=== PATIENT | female | born 1985 | race Caucasian/White ===

== ENCOUNTER 2017-12-02 20:25 | Emergency (ER) | payer OTHER ==
[2017-12-02] MEDS ORDERED: NA CHLORIDE 0.9% 1,000 ML ONE (20:59)
[2017-12-02 21:10] LABS: Absolute Lymphocytes (CBC) 2.4 K/uL (0.7-4.9); Absolute Monocytes 0.5 K/uL (0.1-1.3); Absolute Neutrophil 5.6 K/uL (1.8-8.0); Basophils % 0.5 % (0-1.3); Eosinophils % 1.7 % (0-4.4); Lymphocytes % 27.7 % (15.3-44.8); MCH 30.4 pg (27.0-35.0); MCV 87.7 fL (80-100); MPV 8.2 fL (7.6-11.3)
--- NOTE | 2017-12-02 21:29 | RAD REPORT ---
EXAM DESCRIPTION: RAD - Chest Single View - 12/02/2017 9:21 pm CLINICAL HISTORY: SOB Chest pain. COMPARISON: Chest Single View dated 03/02/2017; CHEST SINGLE VIEW dated 12/26/2014; Chest For Pe Angio dated 03/03/2017 FINDINGS: Portable technique limits examination quality. The lungs are grossly clear. The heart is normal in size. No displaced fractures. IMPRESSION: No acute intrathoracic process suspected.
[2017-12-02 21:34] LABS: Potassium 3.1 mmol/L (3.5-5.1); Thyroid Stimulating Hormone 2.13 uIU/mL (0.36-3.74)
[2017-12-02 23:16] LABS: Urine Blood TRACE (NEG); Urine Glucose NEGATIVE (NEG); Urine Protein TRACE (NEG); Urine pH 5.5 (5.0-7.0)
[2017-12-02 23:24] LABS: Barbiturates NEGATIVE (NEGATIVE); Benzodiazepines NEGATIVE (NEGATIVE); Cocaine NEGATIVE (NEGATIVE); METHAMPHETAM NEGATIVE (NEGATIVE); Methadone NEGATIVE (NEGATIVE); Opiates NEGATIVE (NEGATIVE); Phencyclidine NEGATIVE (NEGATIVE); THC Cannibis NEGATIVE (NEGATIVE)
--- NOTE | 2017-12-03 00:44 | ER ---
Nurse's Notes [facility] Name: Ivet Valles Age: 32 yrs Sex: Female : 1985 Arrival Date: 12/02/2017 Time: 20:26 Bed 8 Private MD: Ab Dumas Diagnosis: Tachycardia, unspecified;Dyspnea Presentation: 12/02 20:45 Presenting complaint: Patient states: SOB and rapid HR that started suddenly after aj eating dinner tonight. Patient also reports nausea. Transition of care: patient was not received from another setting of care. Onset of symptoms was December 02, 2017. Risk Assessment: Do you want to hurt yourself or someone else? Patient reports no desire to harm self or others. Initial Sepsis Screen: Does the patient meet any 2 criteria? HR > 90 bpm. Does the patient have a suspected source of infection? No. Patient's initial sepsis screen is negative. Care prior to arrival: None. 20:45 Method Of Arrival: Ambulatory aj 20:45 Acuity: REJI 2 aj Triage Assessment: 20:48 General: Appears in no apparent distress. uncomfortable, obese, Behavior is calm, aj cooperative, appropriate for age. Pain: Denies pain. Neuro: Level of Consciousness is awake, alert, obeys commands, Oriented to person, place, time, situation, Appropriate for age. Cardiovascular: Reports shortness of breath, Capillary refill < 3 seconds in bilateral fingers Patient's skin is warm and dry. Rhythm is sinus tachycardia. Respiratory: Reports shortness of breath at rest Onset: The symptoms/episode began/occurred just prior to arrival, the patient has mild shortness of breath. Derm: Skin is intact, is healthy with good turgor, Skin is pink, warm \T\ dry. normal. BALLISTICIAN: 20:48 LMP 11/29/2017 aj Historical: - Allergies: 20:48 Clindamycin; aj 20:48 Latex, Natural Rubber; aj - Home Meds: 20:48 Lexapro 20 mg Oral tab 1 tab once daily [Active]; metformin 1,000 mg oral tab 1 tab aj [Active]; lisinopril-hydrochlorothiazide 20-12.5 mg oral tab 1 tab once daily [Active]; - PMHx: 20:48 PCOS; Hypertension; aj - PSHx: 20:48 D \T\ C; aj - Immunization history:: Adult Immunizations up to date. - Social history:: Smoking status: Patient uses tobacco products, smokes one-half pack cigarettes per day. - Ebola Screening: : Patient negative for fever greater than or equal to 101.5 degrees Fahrenheit, and additional compatible Ebola Virus Disease symptoms Patient denies exposure to infectious person Patient denies travel to an Ebola-affected area in the 21 days before illness onset No symptoms or risks identified at this time. Screenin:05 Abuse screen: Denies threats or abuse. Denies injuries from another. Nutritional rv screening: No deficits noted. Tuberculosis screening: No symptoms or risk factors identified. Fall Risk None identified. Assessment: 21:04 Reassessment: Patient appears in no apparent distress at this time. General: Appears rv uncomfortable, Behavior is calm, cooperative. Pain: Denies pain. Neuro: Cardiovascular: Heart tones S1 S2 present. Respiratory: Airway is patent Respiratory effort is even, Breath sounds are clear bilaterally. 22:00 Reassessment: Patient appears in no apparent distress at this time. Patient and/or aa1 family updated on plan of care and expected duration. Pain level reassessed. Patient is alert, oriented x 3, equal unlabored respirations, skin warm/dry/pink. Awaiting urine sample. 23:00 Reassessment: Patient appears in no apparent distress at this time. Patient and/or aa1 family updated on plan of care and expected duration. Pain level reassessed. Patient is alert, oriented x 3, equal unlabored respirations, skin warm/dry/pink. Awaiting provider reassessment. 23:30 Reassessment: Patient appears in no apparent distress at this time. Pt taken to CT. aa1 12/03 00:10 Reassessment: Patient appears in no apparent distress at this time. Patient and/or rv family updated on plan of care and expected duration. Pain level reassessed. Patient is alert, oriented x 3, equal unlabored respirations, skin warm/dry/pink. patient came back from CT scan. awaiting result. vital signs are stable. Vital Signs: 12/02 20:48 BP 148 / 105; Pulse 133; Resp 20; Temp 97.9; Pulse Ox 95% on R/A; Weight 127.01 kg; aj Height 5 ft. 5 in. (165.10 cm); 21:45 BP 131 / 86; Pulse 110; Resp 18; Pulse Ox 96% on R/A; aa1 22:50 BP 124 / 80; Pulse 90; Resp 18; Pulse Ox 96% on R/A; aa1 12/03 00:11 BP 112 / 77; Pulse 91; Resp 16; Pulse Ox 97% on R/A; rv 00:52 BP 118 / 79; Pulse 85; Resp 16; Pulse Ox 97% on R/A; rv 12/02 20:48 Body Mass Index 46.59 (127.01 kg, 165.10 cm) ED Course: 12/02 20:26 Patient arrived in ED. am2 20:26 Ab Dumas MD is Private Physician. am2 20:41 Ender Jones MD is Attending Physician. gs 20:46 Triage completed. aj 20:48 Arm band placed on right wrist. Patient placed in an exam room, on a stretcher, on aj patient monitor, on pulse oximetry. EKG completed in triage. Results shown to MD. 20:58 Inserted saline lock: 20 gauge in right forearm, using aseptic technique. rv 21:06 Patient has correct armband on for positive identification. Placed in gown. Bed in low rv position. Call light in reach. Side rails up X 1. Adult w/ patient. pvc monitor on. Pulse ox on. NIBP on. 21:20 X-ray completed. Portable x-ray completed in exam room. Patient tolerated procedure kc2 well. 21:21 XRAY Chest (1 view) In Process Unspecified. EDMS 22:30 Urine collected: clean catch specimen. aa1 23:[address] via wheelchair. vr 23:45 CT completed. Patient tolerated procedure well. Patient moved back from CT. kw1 23:49 CT Chest For PE Angio In Process Unspecified. EDMS 12/03 00:54 No provider procedures requiring assistance completed. IV discontinued, bleeding rv controlled, No redness/swelling at site. Pressure dressing applied. Administered Medications: 12/02 20:57 Drug: NS 0.9% 1000 ml Route: IV; Rate: 1 bolus; Site: right forearm; rv 12/03 00:53 Follow up: IV Status: Completed infusion rv Outcome: 00:44 Discharge ordered by MD. gs 00:54 Discharged to home ambulatory. rv 00:54 Condition: improved 00:54 Discharge instructions given to patient, Instructed on discharge instructions. 00:54 Patient left the ED. rv Signatures: Dispatcher [employer] EDMS Coty Ventura RN RN aa1 Myers, Amanda, RN RN aj Davis, Victoria vr Carr, Kelsie kc2 Rebecca Garcia Gregory, MD MD Delmy Marie kw1 Arnold Chisholm RN RN rv Corrections: (The following items were deleted from the chart) 12/02 20:47 20:45 Initial Sepsis Screen: Does the patient meet any 2 criteria? HR > 90 bpm. Does aj the patient have a suspected source of infection? No. Patient's initial sepsis screen is negative. aj
--- NOTE | 2017-12-03 00:44 | EDPHYS ---
Physician Documentation [facility] Name: Ivet Valles Age: 32 yrs Sex: Female : 1985 Arrival Date: 12/02/2017 Time: 20:26 Bed 8 Private MD: Ab Dumas ED Physician Ender Jones HPI: 12/03 00:38 This 32 yrs old Female presents to ER via Ambulatory with complaints of gs Shortness Of Breath, Heart racing. 00:38 The patient has shortness of breath at rest. Onset: The symptoms/episode began/occurred gs yesterday. Duration: The symptoms are continuous. The patient's shortness of breath is aggravated by nothing, is alleviated by nothing. Associated signs and symptoms: Pertinent positives: palpitations, Pertinent negatives: chest pain. Severity of symptoms: At their worst the symptoms were severe in the emergency department the symptoms are unchanged. The patient has experienced similar episodes in the past, a few times. PICCOLOIST: 12/02 20:48 LMP 11/29/2017 aj Historical: - Allergies: 20:48 Clindamycin; aj 20:48 Latex, Natural Rubber; aj - Home Meds: 20:48 Lexapro 20 mg Oral tab 1 tab once daily [Active]; metformin 1,000 mg oral tab 1 tab aj [Active]; lisinopril-hydrochlorothiazide 20-12.5 mg oral tab 1 tab once daily [Active]; - PMHx: 20:48 PCOS; Hypertension; aj - PSHx: 20:48 D \T\ C; aj - Immunization history:: Adult Immunizations up to date. - Social history:: Smoking status: Patient uses tobacco products, smokes one-half pack cigarettes per day. - Ebola Screening: : Patient negative for fever greater than or equal to 101.5 degrees Fahrenheit, and additional compatible Ebola Virus Disease symptoms Patient denies exposure to infectious person Patient denies travel to an Ebola-affected area in the 21 days before illness onset No symptoms or risks identified at this time. ROS: 12/03 00:38 All other systems are negative. gs Exam: 00:38 Head/Face: Normocephalic, atraumatic. Eyes: Pupils equal round and reactive to light, gs extra-ocular motions intact. Lids and lashes normal. Conjunctiva and sclera are non-icteric and not injected. Cornea within normal limits. Periorbital areas with no swelling, redness, or edema. ENT: Nares patent. No nasal discharge, no septal abnormalities noted. Tympanic membranes are normal and external auditory canals are clear. Oropharynx with no redness, swelling, or masses, exudates, or evidence of obstruction, uvula midline. Mucous membranes moist. Neck: Trachea midline, no thyromegaly or masses palpated, and no cervical lymphadenopathy. Supple, full range of motion without nuchal rigidity, or vertebral point tenderness. No Meningismus. Chest/axilla: Normal chest wall appearance and motion. Nontender with no deformity. No lesions are appreciated. 00:38 Abdomen/GI: Soft, non-tender, with normal bowel sounds. No distension or tympany. No guarding or rebound. No evidence of tenderness throughout. Back: No spinal tenderness. No costovertebral tenderness. Full range of motion. Skin: Warm, dry with normal turgor. Normal color with no rashes, no lesions, and no evidence of cellulitis. MS/ Extremity: Pulses equal, no cyanosis. Neurovascular intact. Full, normal range of motion. Neuro: Awake and alert, GCS 15, oriented to person, place, time, and situation. Cranial nerves II-XII grossly intact. Motor strength 5/5 in all extremities. Sensory grossly intact. Cerebellar exam normal. Normal gait. 00:38 Constitutional: The patient appears alert, awake. 00:38 Cardiovascular: Rate: tachycardic, Rhythm: regular, Pulses: no pulse deficits are appreciated. 00:38 ECG was reviewed by the Attending Physician. 00:38 Respiratory: the patient does not display signs of respiratory distress, Respirations: normal, Breath sounds: are clear throughout, no bronchial sounds, no wheezing. Vital Signs: 12/02 20:48 BP 148 / 105; Pulse 133; Resp 20; Temp 97.9; Pulse Ox 95% on R/A; Weight 127.01 kg; aj Height 5 ft. 5 in. (165.10 cm); 21:45 BP 131 / 86; Pulse 110; Resp 18; Pulse Ox 96% on R/A; aa1 22:50 BP 124 / 80; Pulse 90; Resp 18; Pulse Ox 96% on R/A; aa1 12/03 00:11 BP 112 / 77; Pulse 91; Resp 16; Pulse Ox 97% on R/A; rv 00:52 BP 118 / 79; Pulse 85; Resp 16; Pulse Ox 97% on R/A; rv 12/02 20:48 Body Mass Index 46.59 (127.01 kg, 165.10 cm) aj MDM: 12/02 20:49 Patient medically screened. 12/03 00:38 Differential diagnosis: Anxiety Reaction pulmonary edema, Pulmonary Embolism gs arrthymia,thyroid abl. Data reviewed: vital signs, nurses notes. Medication response: labetalol reduced the patient's elevated blood pressure to within acceptable limits. 12/02 20:51 Order name: Basic Metabolic Panel 12/02 20:51 Order name: CBC with Diff 12/02 20:51 Order name: Magnesium 12/02 20:51 Order name: Troponin (emerg Dept Use Only) 12/02 20:51 Order name: D-Dimer; Complete Time: 21:38 12/02 20:51 Order name: TSH 12/02 20:51 Order name: Urine Drug Screen; Complete Time: 00:45 12/02 20:51 Order name: Basic Metabolic Panel; Complete Time: 21:38 EDPR 12/02 20:51 Order name: CBC with Automated Diff; Complete Time: 21:38 EDPR 12/02 20:51 Order name: Magnesium; Complete Time: 21:38 EDPR 12/02 20:51 Order name: Troponin (Emerg Dept Use Only); Complete Time: 21:38 EDPR 12/02 20:51 Order name: Thyroid Stimulating Hormone; Complete Time: 21:38 EDPR 12/02 23:08 Order name: Urine Dipstick--Ancillary (enter results); Complete Time: 00:45 [facility] 12/02 23:08 Order name: Urine --Ancillary (enter results); Complete Time: 00:45 [facility] 12/02 20:51 Order name: XRAY Chest (1 view); Complete Time: 21:38 12/02 20:51 Order name: EKG; Complete Time: 20:52 12/02 20:51 Order name: Cardiac monitoring; Complete Time: 20:57 12/02 20:51 Order name: EKG - Nurse/Tech; Complete Time: 20:57 12/02 20:51 Order name: IV Saline Lock; Complete Time: 20:58 12/02 20:51 Order name: Labs collected and sent; Complete Time: 20:58 12/02 20:51 Order name: O2 Per Protocol; Complete Time: 20:58 12/02 20:51 Order name: O2 Sat Monitoring; Complete Time: 20:58 12/02 20:51 Order name: Urine Dipstick-Ancillary (obtain specimen); Complete Time: 23:10 12/02 20:51 Order name: Urine Test (obtain specimen); Complete Time: 23:38 12/02 23:16 Order name: CT Chest For PE Angio EC:38 Rate is 106 beats/min. Rhythm is regular. [place] interval is normal. QRS interval is gs normal. T waves are Normal. No ST changes noted. Clinical impression: Abnormal EKG without significant change. Interpreted by me. Administered Medications: 12/02 20:57 Drug: NS 0.9% 1000 ml Route: IV; Rate: 1 bolus; Site: right forearm; rv 12/03 00:53 Follow up: IV Status: Completed infusion rv Disposition: 12/03/17 00:44 Discharged to Home. Impression: Tachycardia, unspecified, Dyspnea. - Condition is Stable. - Discharge Instructions: Palpitations, Shortness of Breath, [id number]. - Medication Reconciliation Form, Thank You Letter, Antibiotic Education, Prescription Opioid Use form. - Follow up: Private Physician; When: 2 - 3 days; Reason: Re-evaluation by your physician. Signatures: Dispatcher [employer] Rebecca Blanc RN RN aj Starr, Gregory, MD MD Arnold Chisholm RN RN rv Corrections: (The following items were deleted from the chart) 00:54 00:44 12/03/2017 00:44 Discharged to Home. Impression: Tachycardia, unspecified; rv Dyspnea. Condition is Stable. Forms are Medication Reconciliation Form, Thank You Letter, Antibiotic Education, Prescription Opioid Use. Follow up: Private Physician; When: 2 - 3 days; Reason: Re-evaluation by your physician.
--- NOTE | 2017-12-03 13:12 | RAD REPORT ---
EXAM DESCRIPTION: CT - Chest For Pe Angio - 12/03/2017 7:23 am CLINICAL HISTORY: Chest pain. SOB COMPARISON: Chest For Pe Angio dated 03/03/2017; CTANGIO CHEST FOR PE dated 12/26/2014 TECHNIQUE: CT angiogram of the pulmonary arteries was performed with MIP. All CT scans are performed using dose optimization technique as appropriate and may include automated exposure control or mA/KV adjustment according to patient size. FINDINGS: No evidence of pulmonary thromboembolism. No acute aortic finding demonstrated. The lungs are clear. No significant pericardial or pleural fluid. No concerning bony finding. IMPRESSION: No evidence of pulmonary thromboembolism. No acute lung findings.
--- NOTE | 2017-12-05 07:00 | EKG ---
Test Date: 2017-12-02 Test Time: 20:47:47 [place]: MEASUREMENT RESULTS: Intervals: Rate: 106 ND: 148 QRSD: 78 QT: 326 QTc: 433 Hodges: P: 38 ND: 148 QRS: 22 T: 24 INTERPRETIVE STATEMENTS: Sinus tachycardia Abnormal ECG Compared to ECG 12/25/2014 21:55:32 Sinus rhythm no longer present Electronically Signed On 12-05-17 07:00:18 CDT by Cyrus Corrigan
== END 2017-12-03 00:54 | disposition home or self-care (01) ==
LOC: ER 20:25
DX: R00.2 Palpitations (principal); I10 Essential (primary) hypertension; F17.210 Nicotine dependence, cigarettes, uncomplicated; Z88.3 Allergy status to other anti-infective agents; Z91.040 Latex allergy status; Z91.048 Other nonmedicinal substance allergy status
CPT/HCPCS: 36415; 71045; 71275; 80048; 80307; 81003; 81025; 83735; 84443; 84484; 85025; 85379; 93005; 96360; 96361; 99285; J7030; Q9967

== ENCOUNTER 2020-01-08 18:52 | Emergency (ER) | payer OTHER ==
--- OUTSIDE RECORDS SUMMARY | 2020-01-08 18:53 | XMS REPORT | Summary of Care ---
:1985 Author Organization [facility] Address [address] [place] [id number] Care Team Providers Name Role Phone Avelino Red Primary Care Provider Reason for Visit Reason Comments Refill Request Encounter Details Date Type Department Care Team Description 01/06/2020 Refill [facility] Peterson jimenez, MD Juan A Refill Request - [address] [place] [address] [place] [address] [phone] Allergies Active Allergy Reactions Severity Noted Date Comments Clindamycin Unknown - See comments 01/06/2016 Erythromycin Unknown - See comments 01/06/2016 Latex Rash 01/06/2016 documented as of this encounter (statuses as of 01/07/2020) Medications Medication Sig Dispensed Refills Start Date End Date Status aspirin (ASPIRIN Take 81 mg by 0 Active LOW DOSE) 81 mg EC mouth daily. tablet lisinopril-hydrochl Take 1 tablet 0 Active orothiazide 20-12.5 by mouth every mg per morning. tabletIndications: Atypical chest pain, Essential hypertension buPROPion SR Start 1 tab PO 60 tablet 5 09/26/2018 A ctive (WELLBUTRIN SR) 150 daily x 3 mg SR days, then tabletIndications: increase to 1 Tobacco use tab PO BID. disorder, Encounter for counseling for tobacco use disorder, Anxiety ESCITALOPRAM Take 1 tablet 30 tablet 0 01/07/2020 Ac tive OXALATE 20 mg by mouth once tabletIndications: daily Anxiety ESCITALOPRAM Take 1 tablet 30 tablet 0 11/21/2019 01/07/2020 D iscontinued OXALATE 20 mg by mouth once tabletIndications: daily Anxiety documented as of this encounter (statuses as of 01/07/2020) Active Problems Problem Noted Date Anxiety 01/06/2016 Essential hypertension 01/06/2016 Coagulation defect 01/06/2016 documented as of this encounter (statuses as of 01/07/2020) Immunizations Name Administration Dates Next Due HEP B, Adult Dosage 01/26/2018 TDAP 01/09/2018 documented as of this encounter Social History Tobacco Use Types Packs/Day Years Used Date Current Every Day Smoker Cigarettes 0.5 10 Smokeless Tobacco: Never Used Alcohol Use Drinks/Week oz/Week Comments Yes occasional Sex Assigned at Date Recorded Not on file Job Start Date Occupation Industry Not on file Not on file Not on file Travel History Travel Start Travel End No recent travel history available. documented as of this encounter Last Filed Vital Signs Not on filedocumented in this encounter Plan of Treatment Health Maintenance Due Date Last Done Comments PNEUMOCOCCAL 0-64 YEARS COMBINED 1990 SERIES (1 of 1 - PPSV23) Depression Screening 1996 PAP SMEAR 01/05/2019 01/06/2016, 01/06/2016 (Previously completed) INFLUENZA VACCINE (#1) 2020 02/21/2018 DTaP,Tdap,and Td Vaccines (2 - Td) 01/10/2028 01/09/2018 documented as of this encounter Results Not on filedocumented in this encounter Visit Diagnoses Diagnosis Anxiety Anxiety state, unspecified documented in this encounter Insurance Payer Benefit Plan / Group Subscriber ID Effective Dates Phone Address Type CIGNA CIGNA II [id number] 2019-Present H [place]/PPO/POS documented as of this encounter
--- OUTSIDE RECORDS SUMMARY | 2020-01-08 18:53 | XMS REPORT | Continuity of Care Document ---
:1985 Author Organization [facility] t Address [address] [place] [address] Care Team Providers Name Role Phone Jorden DRISCOLL Attending Clinician Avelino Rosenberg Attending Clinician Problems This patient has no known problems. Allergies, Adverse Reactions, Alerts This patient has no known allergies or adverse reactions. Medications This patient has no known medications. Procedures This patient has no known procedures. Encounters Start End Encounter Admission Attending Care Care Encounter Source Date/Time Date/Time Type Type Clinicians Facility Department ID 2020-01-06 2020-01-06 [facility] [id number] 00:00:00 00:00:00 [facility] [id number] [place] [id number] Profess[facility] [phone] [address] 2019-11-20 2019-11-20 Joey Red [facility] [id number] 00:00:00 00:00:00 K[facility]ia [facility] [id number] [place] [id number] Professio [phone] [address] 2019-08-01 2019-08-01 Office Located within [facility] [id number] 13:23:59 14:46:46 Visit [place] [id number] [place] [id number] [place] [phone] [facility] [address] Results This patient has no known results.
[2020-01-08] MEDS ORDERED: ONDANSETRON 4 MG/2 ML VIAL ONE (19:37)
[2020-01-08] MEDS ORDERED: NA CHLORIDE 0.9% 1,000 ML ONE (19:37)
--- NOTE | 2020-01-08 19:57 | RAD REPORT ---
EXAM DESCRIPTION: CT - Chest For Pe Angio - 01/08/2020 7:39 pm CLINICAL HISTORY: sob COMPARISON: 2018 TECHNIQUE: Dynamically enhanced axial 3 mm thick images of the chest were obtained during administra tion of <100> mL Isovue 370 IV contrast. Coronal and oblique reconstruction images were generated and reviewed. Exam utilizes a protocol for optimal evaluation of pulmonary arterial tree. Maximum intensity projections 3D imaging was utilized All CT scans are performed using dose optimization technique as appropriate and may include automated exposure control or mA/KV adjustment according to patient size. FINDINGS: A pulmonary embolus is not seen. A thoracic aortic aneurysm is not noted. A pleural effusion is not seen. A pericardial effusion is not seen. A lung consolidation is not present. IMPRESSION: Negative for a pulmonary embolism.
--- NOTE | 2020-01-08 19:59 | RAD REPORT ---
EXAM DESCRIPTION: [place] Single View01/08/2020 7:25 pm CLINICAL HISTORY: sob COMPARISON: 2017 FINDINGS: The lungs appear clear of acute infiltrate. The heart is normal size IMPRESSION: No acute abnormalities displayed
[2020-01-08 20:04] LABS: Absolute Lymphocytes (CBC) 2.2 K/uL (0.7-4.9); Basophils % 0.6 % (0-1.3); Hematocrit 39.1 % (36.0-45.0); Lymphocytes % 28.7 % (15.3-44.8); MPV 8.9 fL (7.6-11.3); RBC Red Blood Cell Count 4.39 M/uL (3.86-4.86)
[2020-01-08 20:07] LABS: Protime INR 1.04
[2020-01-08 20:09] LABS: ALT/SGPT 32 U/L (12-78); AST/SGOT 15 U/L (15-37); Albumin 3.9 g/dL (3.4-5.0); Alkaline Phosphatase 74 U/L (45-117); BUN Blood Urea Nitrogen 8 mg/dL (7-18); Bicarbonate 28 mmol/L (21-32); Bilirubin Direct < 0.1 mg/dL (0-0.2); Bilirubin Total 0.2 mg/dL (0.2-1.0); Glucose Level 152 mg/dL (74-106); NT PRO-BNP 31 pg/mL (<125); Potassium 3.6 mmol/L (3.5-5.1); Protein, Total 7.9 g/dL (6.4-8.2); Sodium Level 143 mmol/L (136-145); Troponin (Emerg Dept Use Only) < 0.02 ng/mL (0.0-0.045)
--- NOTE | 2020-01-08 21:07 | ER ---
Nurse's Notes [facility] Name: Ivet Valles Age: 34 yrs Sex: Female : 1985 Arrival Date: 01/08/2020 Time: 18:54 Bed 4 Private MD: Diagnosis: Palpitations Presentation: 01/07 18:54 Chief complaint: Patient states: Sudden onset of palpitations, HR 125 bmp, dizziness ss and near syncope while at work. Coronavirus screen: Patient denies a cough. Patient reports shortness of breath or difficulty breathing. Patient denies measured and/or subjective temperature greater than 100.4F prior to today's visit. Patient denies travel on a cruise ship or to a country the [facility] currently lists as an affected area. Patient reports contact with known and/or suspected case of COVID-19. Ebola Screen: Patient denies exposure to infectious person. Patient denies travel to an Ebola-affected area in the 21 days before illness onset. Risk Assessment: Do you want to hurt yourself or someone else? Patient reports no desire to harm self or others. Onset of symptoms was January 08, 2020. 18:54 Method Of Arrival: Ambulatory ss 18:54 Acuity: REJI 3 ss 19:01 Initial Sepsis Screen: Does the patient meet any 2 criteria? No. Patient's initial sv sepsis screen is negative. Does the patient have a suspected source of infection? No. Patient's initial sepsis screen is negative. Historical: - Allergies: 18:58 Clindamycin; ss 18:58 Latex, Natural Rubber; ss - Home Meds: 18:58 Lexapro 20 mg Oral tab 1 tab once daily [Active]; Wellbutrin Oral [Active]; ss - PMHx: 18:58 Hypertension; PCOS; ss - PSHx: 18:58 D \T\ C; ss - Immunization history:: Adult Immunizations up to date. - Social history:: Smoking status: unknown. Screenin:01 Abuse screen: Denies threats or abuse. Denies injuries from another. Nutritional sv screening: No deficits noted. Tuberculosis screening: No symptoms or risk factors identified. Fall Risk None identified. Assessment: 18:30 General: Appears uncomfortable, ill, well groomed, well developed, well nourished, sg Behavior is cooperative, appropriate for age. Pain: Denies pain. Neuro: Level of Consciousness is awake, alert, obeys commands, Oriented to person, place, time, Receiving Supervisor are equal bilaterally Speech is normal, Facial symmetry appears normal. Cardiovascular: Patient's skin is warm and dry. Chest pain is denied. Respiratory: Airway is patent Respiratory effort is even, unlabored, Respiratory pattern is regular, symmetrical. GI: Abdomen is round non-distended, Reports nausea, vomiting. : No signs and/or symptoms were reported regarding the genitourinary system. EENT: No signs and/or symptoms were reported regarding the EENT system. Derm: Skin is pink, warm \T\ dry. Musculoskeletal: Circulation, motion, and sensation intact. Range of motion: intact in all extremities. 18:54 Reassessment: Patient appears in no apparent distress at this time. Patient and/or sg family updated on plan of care and expected duration. Pain level reassessed. Patient is alert, oriented x 3, equal unlabored respirations, skin warm/dry/pink. Patient states symptoms have not improved. 19:50 Reassessment: Provider updating pt on plan of care, verbalized the understanding of ea instruction. 20:43 Reassessment: Patient appears in no apparent distress at this time. Patient is alert, sg oriented x 3, equal unlabored respirations, skin warm/dry/pink. tolerating PO water at this time, pt reports nausea is gone, feeling better, IVF infusing at ordered rate, 200 mL left Patient states feeling better. Patient states symptoms have improved. 21:10 Reassessment: Patient and/or family updated on plan of care and expected duration. Pain ea level reassessed. Patient is alert, oriented x 3, equal unlabored respirations, skin warm/dry/pink. Discharge instruction given to patient, verbalized the understanding of instruction. Pt left ED ambulatory tolerating well. Patient states feeling better. Vital Signs: 18:54 BP 148 / 99; Pulse 97; Resp 19; Temp 98.6(O); Pulse Ox 98% on R/A; ss 19:00 BP 150 / 83 RA Supine (auto/lg); Pulse 83; Resp 18; Pulse Ox 100% on R/A; sg 19:05 BP 138 / 83 RA Sitting (auto/lg); Pulse 88; sg 19:10 BP 148 / 91 RA Standing (auto/lg); Pulse 88; sg 20:20 BP 112 / 70; Pulse 77; Resp 16; Temp 98.6; Pulse Ox 100% on R/A; sg 20:59 BP 112 / 70; Pulse 65; Resp 18; Pulse Ox 99% ; ea ED Course: 18:54 Patient arrived in ED. ss 18:56 Triage completed. ss 18:56 Dre Almaraz NP is PHCP. pm1 18:56 Norman Dunn MD is Attending Physician. pm1 18:59 Arm band placed on. sv 18:59 Patient has correct armband on for positive identification. Placed in gown. Bed in low sv position. Call light in reach. electronic device monitor on. Pulse ox on. NIBP on. 18:59 EKG done, by ED staff, reviewed by Dre Almaraz NP. sv 19:25 XRAY Chest (1 view) In Process Unspecified. EDMS 19:25 Glenn Adair, RN is Primary Nurse. sg 19:34 Initial lab(s) drawn, by ri, sent to lab. Inserted saline lock: 20 gauge in left sg antecubital area, using aseptic technique. Blood collected. 19:41 CT Chest For PE Angio In Process Unspecified. EDMS 21:02 No provider procedures requiring assistance completed. IV discontinued, intact, ea bleeding controlled, No redness/swelling at site. Pressure dressing applied. Administered Medications: 19:33 Drug: NS 0.9% 1000 ml Route: IV; Rate: 1000 ml; Site: left antecubital; sg 21:09 Follow up: Response: No adverse reaction; IV Status: Completed infusion; IV Intake: ea 1000ml 19:33 Drug: Zofran (Ondansetron) 4 mg Route: IVP; Site: left antecubital; sg 21:09 Follow up: Response: No adverse reaction ea Intake: 21:09 IV: 1000ml; Total: 1000ml. ea Outcome: 21:07 Discharge ordered by . pm1 21:08 Condition: stable ea 21:09 Discharged to home ambulatory. ea 21:09 Discharge instructions given to patient, Instructed on discharge instructions, follow up and referral plans. Demonstrated understanding of instructions, follow-up care. 21:10 Patient left the ED. ea Signatures: Dispatcher [employer] EDNE Kalyani Burleson RN RN Glenn Adair RN RN sg Smirch, Shelby, RN RN Dre Almaraz, RECYCLING PROGRAM MANAGER RECYCLING PROGRAM MANAGER pm1 Lynn Almeida, RN RN ea
--- NOTE | 2020-01-08 21:08 | EDPHYS ---
Physician Documentation [facility] Name: Ivet Valles Age: 34 yrs Sex: Female : 1985 Arrival Date: 01/08/2020 Time: 18:54 Bed 4 Private MD: ED Physician Norman Dunn HPI: 01/07 19:05 This 34 yrs old Female presents to ER via Ambulatory with complaints of pm1 Palpitations. 19:05 The patient presents with a history of heart racing. Context: The symptoms occur At pm1 work from changing position. Onset: The symptoms/episode began/occurred just prior to arrival. Duration: The patient or guardian reports a single episode, that is now resolved, but has sensation of shortness of breath. Modifying factors: The symptoms are aggravated by change in position, The symptoms are alleviated by rest. Associated signs and symptoms: Pertinent positives: nausea, near-syncope, Dizziness, Pertinent negatives: anxiety, chest pain, cough, fever, vomiting, Diarrhea. Severity of symptoms: in the emergency department the symptoms have improved Pain is currently a 0 / 10. Patient with history of clotting disorder. Deficient in two factors. Historical: - Allergies: 18:58 Clindamycin; ss 18:58 Latex, Natural Rubber; ss - Home Meds: 18:58 Lexapro 20 mg Oral tab 1 tab once daily [Active]; Wellbutrin Oral [Active]; ss - PMHx: 18:58 Hypertension; PCOS; ss - PSHx: 18:58 D \T\ C; ss - Immunization history:: Adult Immunizations up to date. - Social history:: Smoking status: unknown. ROS: 21:05 Constitutional: Negative for fever, chills, and weight loss, Eyes: Negative for injury, pm1 pain, redness, and discharge, ENT: Negative for injury, pain, and discharge, Neck: Negative for injury, pain, and swelling. 21:05 Respiratory: Negative for shortness of breath, cough, wheezing, and pleuritic chest pain, Back: Negative for injury and pain. 21:05 : Negative for injury, bleeding, discharge, and swelling, MS/Extremity: Negative for injury and deformity, Skin: Negative for injury, rash, and discoloration. 21:05 Cardiovascular: Positive for palpitations, Negative for chest pain, edema. 21:05 Abdomen/GI: Positive for nausea, Negative for abdominal pain, vomiting, diarrhea, constipation. 21:05 Neuro: Positive for dizziness, near syncope, Negative for headache, numbness, tingling, weakness. Exam: 21:05 Constitutional: This is a well developed, well nourished patient who is awake, alert, pm1 and in no acute distress. Head/Face: Normocephalic, atraumatic. Chest/axilla: Normal chest wall appearance and motion. Nontender with no deformity. No lesions are appreciated. 21:05 Back: No spinal tenderness. No costovertebral tenderness. Full range of motion. Skin: Warm, dry with normal turgor. Normal color with no rashes, no lesions, and no evidence of cellulitis. MS/ Extremity: Pulses equal, no cyanosis. Neurovascular intact. Full, normal range of motion. 21:05 Cardiovascular: Rate: normal, Rhythm: regular, Pulses: no pulse deficits are appreciated, Heart sounds: normal, Edema: is not appreciated. 21:05 Respiratory: Exam negative for acute changes, respiratory distress, shortness of breath, Breath sounds: are clear throughout. 21:05 Abdomen/GI: Exam negative for acute changes, Inspection: abdomen appears normal, Palpation: abdomen is soft and non-tender, in all quadrants. 21:05 Neuro: Exam negative for acute changes, Orientation: is normal, Mentation: is normal, Motor: is normal, moves all fours, Sensation: is normal, no obvious gross deficits. Vital Signs: 18:54 BP 148 / 99; Pulse 97; Resp 19; Temp 98.6(O); Pulse Ox 98% on R/A; ss 19:00 BP 150 / 83 RA Supine (auto/lg); Pulse 83; Resp 18; Pulse Ox 100% on R/A; sg 19:05 BP 138 / 83 RA Sitting (auto/lg); Pulse 88; sg 19:10 BP 148 / 91 RA Standing (auto/lg); Pulse 88; sg 20:20 BP 112 / 70; Pulse 77; Resp 16; Temp 98.6; Pulse Ox 100% on R/A; sg 20:59 BP 112 / 70; Pulse 65; Resp 18; Pulse Ox 99% ; ea MDM: 18:56 Patient medically screened. pm1 21:06 Data reviewed: vital signs. Data interpreted: Pulse oximetry: on room air is 99 %. pm1 Interpretation: normal. Counseling: I had a detailed discussion with the patient and/or guardian regarding: the historical points, exam findings, and any diagnostic results supporting the discharge/admit diagnosis, lab results, radiology results, the need for outpatient follow up, to return to the emergency department if symptoms worsen or persist or if there are any questions or concerns that arise at home. 01/07 19:04 Order name: Basic Metabolic Panel; Complete Time: 20:11 pm01/07 19:04 Order name: CBC with Diff; Complete Time: 20:07 pm01/07 19:04 Order name: LFT's; Complete Time: 20:11 pm01/07 19:04 Order name: Magnesium; Complete Time: 20:11 pm01/07 19:04 Order name: NT PRO-BNP; Complete Time: 20:11 pm01/07 19:04 Order name: PT-INR; Complete Time: 20:24 pm01/07 19:04 Order name: Troponin (emerg Dept Use Only); Complete Time: 20:11 pm01/07 19:04 Order name: XRAY Chest (1 view); Complete Time: 20:04 pm01/07 19:04 Order name: EKG; Complete Time: 19:06 pm01/07 19:04 Order name: Cardiac monitoring; Complete Time: 19:26 pm01/07 19:04 Order name: CT Chest For PE Angio; Complete Time: 20:04 pm01/07 19:05 Order name: Test, Serum; Complete Time: 20:04 01/07 19:04 Order name: EKG - Nurse/Tech; Complete Time: 19:26 pm01/07 19:04 Order name: IV Saline Lock; Complete Time: 19:25 pm01/07 19:04 Order name: Labs collected and sent; Complete Time: 19:26 pm01/07 19:04 Order name: O2 Per Protocol; Complete Time: 19:26 pm01/07 19:04 Order name: O2 Sat Monitoring; Complete Time: 19:26 pm01/07 19:04 Order name: Orthostatic Blood Pressure; Complete Time: 19:56 pm1 Administered Medications: 19:33 Drug: NS 0.9% 1000 ml Route: IV; Rate: 1000 ml; Site: left antecubital; 21:09 Follow up: Response: No adverse reaction; IV Status: Completed infusion; IV Intake: ea 1000ml 19:33 Drug: Zofran (Ondansetron) 4 mg Route: IVP; Site: left antecubital; 21:09 Follow up: Response: No adverse reaction ea Disposition: 01/08 08:36 Co-signature as Attending Physician, Norman Dunn MD I agree with the assessment and [facility] plan of care. Disposition: 01/08/20 21:07 Discharged to Home. Impression: Palpitations. - Condition is Stable. - Discharge Instructions: Palpitations. - Medication Reconciliation Form, Thank You Letter, Antibiotic Education, Prescription Opioid Use form. - Follow up: Emergency Department; When: As needed; Reason: Worsening of condition. Follow up: Private Physician; When: 2 - 3 days; Reason: Recheck today's complaints, Continuance of care, Re-evaluation by your physician. - Problem is new. - Symptoms have improved. Signatures: Dispatcher [employer] EDGlenn King RN RN sg Anderson, Corey, MD MD cha Smirch, Shelby, RN RN ss Marinas, Patrick, PROFESSOR OF LEGAL STUDIES PROFESSOR OF LEGAL STUDIES pm1 Lynn Almeida RN RN ea Corrections: (The following items were deleted from the chart) 01/07 21:10 21:07 01/08/2020 21:07 Discharged to Home. Impression: Palpitations. Condition is ea Stable. Forms are Medication Reconciliation Form, Thank You Letter, Antibiotic Education, Prescription Opioid Use. Follow up: Emergency Department; When: As needed; Reason: Worsening of condition. Follow up: Private Physician; When: 2 - 3 days; Reason: Recheck today's complaints, Continuance of care, Re-evaluation by your physician. Problem is new. Symptoms have improved. pm1
[2020-01-08 21:18] VITALS: TEMP 98.6
[2020-01-08 21:24] VITALS: BP 112/70
[2020-01-08 21:25] VITALS: O2SAT 99
--- NOTE | 2020-01-10 07:36 | EKG ---
Test Date: 2020-01-08 Test Time: 18:55:51 Tin Flopper: SELENA MEASUREMENT RESULTS: Intervals: Rate: 97 ME: 146 QRSD: 76 QT: 350 QTc: 444 [place]: P: 48 ME: 146 QRS: 19 T: 34 INTERPRETIVE STATEMENTS: Normal sinus rhythm Normal ECG Compared to ECG 12/02/2017 20:47:47 Sinus tachycardia no longer present Electronically Signed On 01-10-20 07:32:45 CDT by Emmett Quiroz
== END 2020-01-08 21:10 | disposition home or self-care (01) ==
LOC: ER 18:52
DX: R00.2 Palpitations (principal); I10 Essential (primary) hypertension; Z88.3 Allergy status to other anti-infective agents; Z91.040 Latex allergy status; Z91.048 Other nonmedicinal substance allergy status
CPT/HCPCS: 96361; 93005; 85025; 80048; 36415; 83735; 84703; 85610; 82565; 80076; 84484; 83880; 71275; 71045; 96374; 99284; Q9967; J7030; J2405

== ENCOUNTER 2022-07-24 21:02 | Emergency (ER) | payer BC, OTHER ==
--- OUTSIDE RECORDS SUMMARY | 2022-07-24 21:47 | XMS REPORT | Continuity of Care Document ---
:1985 Author Organization [facility] t Address [address] [place] [address] [place] [address] Care Team Providers Name Role Phone KESHIA BOWER Primary Care Physician Unavailable LOLITA COLEMAN Attending Clinician Unavailable Kerrie Kaur Attending Clinician Lolita Coleman MD Attending Clinician Sophia Schuster Attending Clinician TIA TEJEDA Attending Clinician Unavailable Tia Le Attending Clinician Unknown, Attending Attending Clinician Unavailable UNKNOWN, ATTENDING Attending Clinician Unavailable A_Steven Attending Clinician Unavailable G_Papbrielle Attending Clinician Unavailable Doctor Unassigned, [place] Attending Clinician Unavailable Keshia Rosenberg Attending Clinician Tesfaye De La O DO Attending Clinician Juan A Leonardo MD Attending Clinician Avelino_Steven Admitting Clinician Unavailable Rush_Faisal Admitting Clinician Unavailable Payers Payer Name Policy Type Policy Number Effective Date Expiration Date Jamie stallworth [employer] [id number] 2020 OUT OF NETWORK 00:00:00 [employer] - [id number] 2020 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 [employer] [id number] 2016 00:00:00 Problems Condition Condition Condition Status Onset Resolution Last Treating Co mments Source Name Details Category Date Date Treatment Clinician Date Hypertensi Hypertensi Problem Active M [facility] ve ve 4-18 da disorder Disorder 00:00: Medica l 00 Group Body mass Body Mass Problem Active [facility] index 40+ Index 40+ 4-18 da - severely - Severely 00:00: Me dical obese Obese 00 Group Bacterial Bacterial Problem Active [facility] vaginosis Vaginosis 4-18 da 00:00: Medical 00 Group Benign Benign Problem Active [place] essential Essential 9-22 da hypertensi Hypertensi 00:00: Me dical on on 00 Group Nicotine Nicotine Problem Active [place] dependence Dependence 3-31 da 00:00: Medical 00 Group Chronic Chronic Problem Active [place] depression Depression 3-31 da 00:00: Medical 00 Group Furuncle Furuncle Problem Active [place] of axilla of Axilla 3-31 da 00:00: Medical 00 Group Blood Blood Problem Active [place] coagulatio Coagulatio 3-31 da n disorder n Disorder 00:00: Me dical 00 Group Polycystic Polycystic Problem Active [facility] ovaries Ovaries 2-10 da 00:00: Medical 00 Group Type 2 Type 2 Problem Active [place] diabetes Diabetes 2-10 da mellitus Mellitus 00:00: Medica l without without 00 Group complicati Complicati on on Anxiety Anxiety Disease Active Univers 7-26 ity of 00:00: [place] 00 Medical Branch Essential Essential Disease Active Uni vers hypertensi hypertensi 01-05 it y of on on 00:00: [place] 00 Medical Branch Coagulatio Coagulatio Disease Active U nivers n defect n defect 01-05 ity of 00:00: [place] 00 Medical Branch Obesity Obesity Problem Active [facility] Allergies, Adverse Reactions, Alerts Allergy Allergy Status Severity Reaction(s) Onset Inactive Treating Comm ents Source Name Type Date Date Clinician CLINDAMY DRUG Active Unknown-Cmnt Un melo MIKE INGREDI 01-05 ity of 00:00: [place] 00 Medical Branch ERYTHROM DRUG Active Unknown-Cmnt Un melo YCIN 01-05 ity of 00:00: [place] 00 Medical Branch LATEX DRUG Active Rash Univers INGREDI 01-05 ity of 00:00: [place] 00 Medical Branch Clindamy Propensi Active Unknown - Uni vers mike ty to See comments 01-05 ity of adverse 00:00: [place] reaction 00 Medical s Branch Erythrom Propensi Active Unknown - Uni vers ycin ty to See comments 01-05 ity of adverse 00:00: [place] reaction 00 Medical s Branch Latex Propensi Active Rash Univers ty to 01-05 ity of adverse 00:00: [place] reaction 00 Medical s Branch Clindamy Allergy Active Anaphylaxis Claudy badillobela mike to da substanc Medical e Group Erythrom Allergy Active Anaphylaxis Claudy nolberto ycin to da Base substanc Medical e Group Latex Allergy Active [place] to da substanc Medical e Group Social History Social Habit Start Date Stop Date Quantity Comments Source History [facility] University o f [facility] [place] History [facility] University o f Alcohol Std Drinks [facility] Branch History [facility] University o f Alcohol Binge [facility] al Branch Exposure to Not sure University of SARS-CoV-2 (event) [facility] History of tobacco Cigarette Smoker University of use [facility] Alcohol intake 2021-06-09 2021-06-09 Current drinker Unive rsity of 00:00:00 00:00:00 of alcohol [facility] (finding) [place] Alcohol Comment 2016-01-06 2016-01-06 occasional Universit y of 00:00:00 00:00:00 [facility] Tobacco use and 2016-01-06 2016-01-06 Never used Universit y of exposure 00:00:00 00:00:00 [facility] Cigarettes smoked 2016-01-06 2016-01-06 Univers ity of current (pack per 00:00:00 00:00:00 [facility] ) - Reported Branch Cigarette 2016-01-06 2016-01-06 University of pack-years 00:00:00 00:00:00 [facility] Sex Ass[birth year] At [birth year] Universit y of 00:00:00 00:00:00 [facility] Smoking Status Start Date Stop Date Source Former Smoker Ayan Hallman l Group Current every day smoker 2016-01-06 00:00:00 Uni versity of [facility] Medications Ordered Filled Start Stop Current Ordering Indication Dosage Frequency Signature Comments Components Source Medication Medication Date Date Medication? Clinician (SIG) Name Name methylPREDN 2020-06- No [id number] 80mg Univers ISolone 06-10 ity of acetate 03:30: 02:26 [place] (DEPO-MEDRO 00 :00 [facility]) Branch injection 80 mg methylPREDN 2020-06- No [id number] 80mg 80 mg, Univers ISolone 06-10 Intramuscu ity o f acetate 03:30: 02:26 lar, ONCE, Fei as (DEPO-MEDRO 00 :00 1 dose, On Nc dical L) Tu Branch injection 06/09/21 80 mg at 2130, Routine albuterol 2020-06- No [id number] 2{puff} Univers (VENTOLIN) 06-10 ity of inhaler 2 02:16: 02:26 [place] Puff 00 :00 [facility] albuterol 2020-06- No [id number] 2{puff} 2 Puff, Univers (VENTOLIN) 06-10 Inhalation it y of inhaler 2 02:16: 02:26 [place]uff [place] :[place] dose, On Medical e Branch 06/09/21 at 2030, Routine ampicillin 2020-06- No [id number] 500mg Take 1 Univers 500 mg 08-08 capsule by ity of capsule 00:00: 05:59 mouth [place] 00 :00 every 6 Medical (six) Branch hours for 7 days. Nitrofurant 2020-06- No [id number] 100mg Take 1 Univers oin&Nit. 2-23 12-31 capsule by ity of Macrocryst 00:00: 05:59 mouth 2 Fei as (MACROBID) 00 :00 (two) Medical 100 mg times Branch capsule daily for 7 days. ESCITALOPRA Yes [id number] Take 1 Univers M OXALATE 8-31 tablet by ity o f 20 mg 00:00: mouth once [place] tablet 00 daily Medical Branch aspirin Yes 81mg Take 81 mg Univ ers (ASPIRIN 2-19 by mouth ity of LOW DOSE) 13:43: daily. [place] 81 mg EC 13 Medical tablet Branch lisinopril- Yes [id number] 1{tbl} Take 1 Univers hydrochloro 2-19 tablet by ity of thiazide 13:43: mouth [place] 20-12.5 mg 13 every Medical per tablet morning. Branc h buPROPion Yes [id number] Start 1 U nivers SR 4-16 tab PO ity of (WELLBUTRIN 00:00: daily x 3 [place] SR) 150 mg 00 days, then Med ical SR tablet increase Branch to 1 tab PO BID. escitalopra escitalopra No escitalopr [place] 20 mg m 20 mg am 20 mg da tablet TAKE tablet TAKE tablet Medical 1 TABLET BY 1 TABLET BY TAKE 1 Group MOUTH ONCE MOUTH ONCE TABLET BY DAILY DAILY MOUTH ONCE PATIENT PATIENT DAILY MUST BE MUST BE PATIENT SEEN FOR SEEN FOR MUST BE FURTHER FURTHER SEEN FOR REFILLS REFILLS FURTHER REFILLS lisinopril lisinopril No 1 Q1D lisinopril [place] 10 10 10 da mg-hydrochl mg-hydrochl mg-hydroch Medical orothiazide orothiazide [facility]or[facility] Group 12.5 mg 12.5 mg de 12.5 mg tablet Take tablet Take tablet 1 tablet 1 tablet Take 1 every day every day tablet by oral by oral every day route. route. by oral route. metformin metformin No 1 BID metformin [place] 500 mg 500 mg 500 mg da tablet Take tablet Take tablet Medical 1 tablet 1 tablet Take 1 Group twice a day twice a day tablet by oral by oral twice a route. route. day by oral route. Wellbutrin Wellbutrin No 1 BID Wellbutrin [place] SR 150 mg SR 150 mg SR 150 mg da tablet, 12 tablet, 12 tablet, 12 Medical hr hr hr Group sustained-r sustained-r sustained- elease Take elease Take release 1 tablet 1 tablet Take 1 twice a day twice a day tablet by oral by oral twice a route. route. day by oral route. Immunizations Ordered Filled Immunization Date Status Comments Sour e Immunization Name Name HEP B, Adult Dosage 2018-01-26 Completed Unive rsity of 00:00:00 [facility] Hep B, adult Hep B, adult 2018-01-26 Completed [facility] 00:00:00 Group TDAP 2018-01-09 Completed University of 00:00:00 [facility] Tdap Tdap 2018-01-09 Completed [facility]ateek 00:00:00 Group Vital Signs Vital Name Observation Time Observation Value Comments Source Systolic blood 2021-06-10 02:00:00 142 mm[Hg] Univer sity of pressure [facility] Diastolic blood 2021-06-10 02:00:00 101 mm[Hg] Unive rsity of pressure [facility] Heart rate 2021-06-10 02:00:00 113 /min [facility] Body temperature 2021-06-10 02:00:00 37.61 Renae [facility] [place] Body height 2021-06-10 02:00:00 160 cm [facility] Body weight 2021-06-10 02:00:00 122.046 kg [facility] BMI 2021-06-10 02:00:00 47.66 kg/m2 [facility] Oxygen saturation in 2021-06-10 02:00:00 96 /min [facility] Arterial blood by [facility] Pulse oximetry Branch BP Diastolic 2020-12-25 00:00:00 99 mm[Hg] [facility] Height 2020-12-25 00:00:00 63 [in_i] [facility] BMI (Body Mass 2020-12-25 00:00:00 46.1 kg/m2 [facility] under sheriff Medical Index) Group BP Systolic 2020-12-25 00:00:00 150 mm[Hg] [facility] Body Weight 2020-12-25 00:00:00 4168 [oz_av] [facility] Procedures Procedure Date / Time Performed Performing Clinician [facility] e I&d Abscess Subfascial 2017-04-13 00:00:00 [facility] Dilation and Curettage 2008-06-13 00:00:00 [facility] Dilation and Curettage 2003-06-13 00:00:00 [facility] Dilation and Curettage 1998-06-13 00:00:00 [facility] Encounters Start End Encounter Admission Attending Care Care Encounter Source Date/Time Date/Time Type Type Clinicians Facility Department ID 2021-06-09 2021-06-09 [facility] [id number] Univers 20:00[facility]00 [facility]30[facility] 2021-06-09 2021-06-09 Urgent Kerrie Brown [facility] 1.2.840. [id number] Univers 20:00:00 20:30:09 Segun Coleman [facility] [id number] ity [facility] [id number] Fei as RADHA?BLEA [phone] [address] MEDICAL OFFICE [facility] 2021-06-09 2021-06-09 [facility] [id number] Univers 20:00:00 20:30:09 [facility] 2021-06-07 2021-06-07 [facility] [id number] Univers 00:00:00 00:00:00 [facility] [id number] it y [facility] [id number] Fei as RADHA?BLEA [phone] [address] MEDICAL OFFICE BUILDING 2021-06-04 2021-06-04 [facility] [id number] Univers 14:40:00 15:47:35 TIA [facility] [place] 2021-06-04 2021-06-04 Urgent IelanaTia [facility] 1.2.840.114 [id number] Univers 14:40:00 15:00:00 Care [facility], [facility] [id number] ity [facility] [id number] Fei as RADHA?BLEA [phone] [place] chandler [address] MEDICAL OFFICE BUILDING 2021-06-04 2021-06-04 Outpatient R UNKNOWN, [facility] [id number] Univers 14:40:00 14:40:00 ATTENDING ity of [facility] 2021-04-29 2021-04-29 Outpatient A_Byrd [facility] [id number] [place] 11:02:00 11:02:00 1117 Medical Group 2021-04-09 2021-04-09 [place] [id number] [place] 01:57:00 01:57:00 1028 Medical [facility] 2021-03-05 2021-03-05 [facility] [id number] [place] 01:40:00 01:40:00 0923 [facility] 2021-01-29 2021-01-29 Outpatient A_Byrd [facility] [id number] [place] 01:31:00 01:31:00 0819 [facility] 2020-12-25 2020-12-25 Outpatient A_Byrd [facility] [id number] [place] 04:46:00 04:46:00 0715 [facility] 2020-12-25 2020-12-25 Outpatient A_Byrd [facility] [id number] [place] 04:46:00 04:46:00 0717 [facility] 2020-12-25 2020-12-25 Gisela Wilson [facility] [place] - [id number] M [facility] 00:00:00 00:00:00 MD Steven: [address] Group [facility], [place] [address] , Ph. 2020-12-24 2020-12-24 [facility] 2020 [place] 04:06:00 04:06:00 0714 [facility] 2020-12-17 2020-12-17 Refill Doctor [facility] 1.2.840.114 [id number] 00:00:00 00:00:00 Unassigned, Health [id number] [place] [id number] Professio [phone] [place] [address] [address] 2020-12-17 2020-12-17 Refill Teofilo, [facility] [id number] 00:00:00 00:00:00 Keshia A Health [id number] [place] [id number] Professio [phone] [place] [address] [address] 2020-12-17 2020-12-17 Refill Doctor [facility] 1.2.840.114 [id number] Univers 00:00:00 00:00:00 Unassigned, Health [id number] ity of Diaz [place] [id number] Fei as Professio [phone] [address] Office Building One 2020-12-17 2020-12-17 Refill Teofilo, [facility] 1.2.840.114 [id number] Univers 00:00:00 00:00:00 Keshia A Health [id number] i ty of [place] [id number] Fei as Professio [phone] [address] Office Building [facility] 2020-09-01 2020-09-01 Patient Jairon [facility] 1.2.840.114 [id number] 00:00:00 00:00:00 Outreach Tesfaye PRIMARY [id number] Robert CARE [id number] PAVILLION [phone] [facility] 2020-09-01 2020-09-01 [facility] 1.2.840.114 [id number] Univers 00:00:00 00:00:00 Outreach Tesfaye PRIMARY [id number] i ty of [place] CARE [id number] [place] [phone] N[place] dical [address] [place] 2020-04-30 2020-04-30 Outpatient G_Pappas [facility] 2020 [place] 02:19:00 02:19:00 0708 [facility] Group 2020-04-30 2020-04-30 Outpatient G_Pappas [facility] 2019 [place] 02:19:00 02:19:00 1118 da Medical Group 2020-02-08 2020-02-08 Refill Teofilo, [facility] 1.2.840.114 [id number] 00:00:00 00:00:00 Keshia A Health [id number] [place] [id number] Professio [phone] [place] [address] [address] 2020-02-08 2020-02-08 [facility] 1.2.840.114 [id number] 00:00:00 00:00:00 Juan A Health [id number] [place] [id number] Professio [phone] [place] [address] [address] 2020-02-08 2020-02-08 Refbrian Bower, [facility] 1.2.840.114 [id number] Univers 00:00:00 00:00:00 Keshia A Health [id number] i ty of [place] [id number] Fei as Professio [phone] [address] Office Building One 2020-02-08 2020-02-08 [facility] 1.2.840.114 [id number] Univers 00:00:00 00:00:00 Juan A Health [id number] it y of [place] [id number] Fei as Professio [phone] [address] Office Building One 2020-01-06 2020-01-06 [facility] 1.2.840.114 [id number] 00:00:00 00:00:00 Juan A Health [id number] [place] [id number] Professio [phone] [place] [address] [address] [facility] 2020-01-06 2020-01-06 [facility] 1.2.840.114 [id number] Univers 00:00:00 00:00:00 Juan A Health [id number] it y of [place] [id number] Fei as Professio [phone] [address] Office Building One 2019-11-20 2019-11-20 Refill Teofilo, [facility] 1.2.840.114 [id number] 00:00:00 00:00:00 Keshia Avelino Health [id number] [place] [id number] Professio [phone] [address] One 2019-11-20 2019-11-20 Refill Teofilo, [facility] 1.2.840.114 [id number] Univers 00:00:00 00:00:00 Keshia You Health [id number] i ty of [place] [id number] Fei as Professio [phone] Nc dical [address] Office [facility] 2019-08-01 2019-08-01 Office Teofilo, [facility] 1.2.840.114 [id number] 13:23:59 14:46:46 Visit Keshia You Health [id number] [place] [id number] Professio [phone] [place] [address] Office [facility] One 2019-08-01 2019-08-01 Office Teofilo, [facility] 1.2.840.114 [id number] Univers 13:23:59 14:46:46 Visit Keshia A Health [id number] i ty of [place] [id number] Fei as Professio [phone] Nc dic[address] 2019-08-01 2019-08-01 Orders Doctor LAVON 1.2.840.114 [id number] Univers 00:00:00 00:00:00 Only Unassigned, RAZA [id number] ity of Diaz [facility] [id number] Fei as [phone] [place] [address] Branch Results This patient has no known results.
[2022-07-24 21:48] LABS: Absolute Lymphocytes (CBC) 2.3 K/uL (0.7-4.9); Hematocrit 39.2 % (36.0-45.0); MCV 88.8 fL (80-100); MPV 7.8 fL (7.6-11.3); RBC Red Blood Cell Count 4.41 M/uL (3.86-4.86)
[2022-07-24 22:17] LABS: Potassium 4.1 mmol/L (3.5-5.1); Troponin High Sensitivity 4.7 pg/mL (<58.9)
[2022-07-24 22:22] LABS: SARS-COV-2 RT PCR NEGATIVE (NEGATIVE)
[2022-07-24] MEDS ORDERED: NA CHLORIDE 0.9% 500 ML ONE (23:23)
--- NOTE | 2022-07-25 00:25 | ER ---
Nurse's Notes [facility] [place] Name: Ivet Valles Age: 37 yrs Sex: Female : 1985 Arrival Date: 07/24/2022 Time: 21:06 Bed 5 Private MD: Diagnosis: Dyspnea;Gastro-esophageal reflux disease without esophagitis Presentation: 07/24 21:09 Chief complaint: Patient states: C/o chest pain when taking a deep breath, c/o SOB upon ll3 exertion, and dizziness, c/o 3 near syncopal episodes yesterday. Coronavirus screen: Vaccine status: Patient reports receiving the 2nd dose of the covid vaccine. At this time, the client does not indicate any symptoms associated with coronavirus-19. Ebola Screen: No symptoms or risks identified at this time. Initial Sepsis Screen: Does the patient meet any 2 criteria? No. Patient's initial sepsis screen is negative. Does the patient have a suspected source of infection? No. Patient's initial sepsis screen is negative. Risk Assessment: Do you want to hurt yourself or someone else? Patient reports no desire to harm self or others. Onset of symptoms was July 23, 2022. Care prior to arrival: Medication(s) given: ASA, 81 mg, x 1, Progesterone cream. 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 - Social history:: Smoking status: Patient/guardian denies using tobacco. Screenin/12 00:38 [facility] ED Fall Risk Assessment (Adult) History of falling in the last 3 months, jb4 including since admission No falls in past 3 months (0 pts) Confusion or Disorientation No (0 pts) Score/Fall Risk Level 0 - 2 = Low Risk Oriented to surroundings, Maintained a safe environment. Abuse screen: Denies threats or abuse. Nutritional screening: No deficits noted. Tuberculosis screening: No symptoms or risk factors identified. Assessment: 07/24 21:15 General: Appears in no apparent distress. uncomfortable, Behavior is calm, cooperative. jb4 Pain: Complains of pain in chest Pain does not radiate. Pain currently is 2 out of 10 on a pain scale. Neuro: Level of Consciousness is awake, alert, obeys commands, Oriented to person, place, time, situation. Cardiovascular: Patient's skin is warm and dry. Respiratory: Airway is patent Respiratory effort is even, unlabored, Respiratory pattern is regular, symmetrical. GI: No deficits noted. : No deficits noted. EENT: No deficits noted. Derm: Skin Skin is pink, warm \T\ dry. Musculoskeletal: Circulation, motion, and sensation intact. Range of motion: intact in all extremities. 22:30 Reassessment: Patient appears in no apparent distress at this time. Patient and/or jb4 family updated on plan of care and expected duration. Pain level reassessed. Patient is alert, oriented x 3, equal unlabored respirations, skin warm/dry/pink. 23:36 Reassessment: Patient appears in no apparent distress at this time. Patient and/or jb4 family updated on plan of care and expected duration. Pain level reassessed. Patient is alert, oriented x 3, equal unlabored respirations, skin warm/dry/pink. Patient states feeling better. 07/25 00:38 Reassessment: Patient appears in no apparent distress at this time. Patient and/or jb4 family updated on plan of care and expected duration. Pain level reassessed. Patient is alert, oriented x 3, equal unlabored respirations, skin warm/dry/pink. Vital Signs: 07/24 21:09 BP 139 / 84; Pulse 108; Resp 22; Temp 98.3(O); Pulse Ox 98% on R/A; Weight 113.4 kg ll3 (R); Height 5 ft. 3 in. (160.02 cm); Pain 2/10; 22:00 BP 140 / 82; Pulse 83; Resp 16; Pulse Ox 100% on R/A; jb4 23:15 BP 118 / 76; Pulse 82; Resp 16; Pulse Ox 100% on R/A; jb4 21:09 Body Mass Index 44.29 (113.40 kg, 160.02 cm) ll3 ED Course: 21:06 Patient arrived in ED. jb4 21:07 Andreas Green DO is Attending Physician. ms3 21:13 Triage completed. ll3 21:13 Arm band placed on Patient placed in an exam room, on a stretcher, on pulse oximetry. ll3 21:22 Ab Ayala, RN is Primary Nurse. jb4 21:22 Rebekah Pierre FNP-C [facility] snw 21:30 Patient has correct armband on for positive identification. Bed in low position. Call jb4 light in reach. Side rails up X 1. Client placed on continuous cardiac and pulse oximetry monitoring. NIBP monitoring applied. cardboard cutter on. 21:30 No provider procedures requiring assistance completed. IV discontinued, intact, jb4 bleeding controlled, No redness/swelling at site. Pressure dressing applied. 23:06 CT Chest For PE Angio In Process Unspecified. EDMS Administered Medications: 23:26 Not Given (Physician Discretion): NS 0.9% 1000 ml IV at 75 ml/hr continuous jb4 23:27 Drug: NS 0.9% 500 ml Route: IV; Rate: bolus; Site: right antecubital; jb4 Medication: 02/12 00:38 VIS not applicable for this client. jb4 Outcome: 00:25 Discharge ordered by . snw 00:39 Discharged to home ambulatory. jb4 00:39 Condition: stable 00:39 Discharge instructions given to patient, Instructed on discharge instructions, follow up and referral plans. medication usage, Demonstrated understanding of instructions, follow-up care, medications, Prescriptions given X 2. 00:39 Patient left the ED. jb4 Signatures: Dispatcher [employer] EDMS Rebekah Pierre FNP-C FNP-Csnw Ab Ayala, RN RN jb4 Andreas Green DO DO ms3 Michela Gillespie RN RN 3
--- NOTE | 2022-07-25 00:25 | EDPHYS ---
Physician Documentation [facility] Name: Ivet Valles Age: 37 yrs Sex: Female : 1985 Arrival Date: 07/24/2022 Time: 21:06 Bed 5 Private MD: ED Physician Andreas Green HPI: 07/24 21:23 This 37 yrs old Female presents to ER via Ambulatory with complaints of chest pain and snw sob. 21:23 The patient or guardian reports cough, that is constant, shortness of breath, cough. snw Onset: The symptoms/episode began/occurred 2 day(s) ago, and became persistent. Severity of symptoms: At their worst the symptoms were moderate. Associated signs and symptoms: Pertinent positives: chest pain, with cough, with breathing. The patient has experienced similar episodes in the past. The patient has not recently seen a physician. 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 - Social history:: Smoking status: Patient/guardian denies using tobacco. ROS: 22:30 Constitutional: Negative for fever, chills, and weight loss, Eyes: Negative for injury, snw pain, redness, and discharge, ENT: Negative for injury, pain, and discharge, Neck: Negative for injury, pain, and swelling. 22:30 Abdomen/GI: Negative for abdominal pain, nausea, vomiting, diarrhea, and constipation, Back: Negative for injury and pain, : Negative for injury, bleeding, discharge, and swelling, MS/Extremity: Negative for injury and deformity, Skin: Negative for injury, rash, and discoloration, Neuro: Negative for headache, weakness, numbness, tingling, and seizure, Psych: Negative for depression, anxiety, suicide ideation, homicidal ideation, and hallucinations. 22:30 Cardiovascular: Positive for chest pain. 22:30 Respiratory: Positive for dyspnea on exertion, shortness of breath. Exam: 22:30 Constitutional: This is a well developed, well nourished patient who is awake, alert, snw and in no acute distress. Head/Face: Normocephalic, atraumatic. Eyes: Pupils equal round and reactive to light, extra-ocular motions intact. Lids and lashes normal. Conjunctiva and sclera are non-icteric and not injected. Cornea within normal limits. Periorbital areas with no swelling, redness, or edema. ENT: Nares patent. No nasal discharge, no septal abnormalities noted. Tympanic membranes are normal and external auditory canals are clear. Oropharynx with no redness, swelling, or masses, exudates, or evidence of obstruction, uvula midline. Mucous membranes moist. Neck: Trachea midline, no thyromegaly or masses palpated, and no cervical lymphadenopathy. Supple, full range of motion without nuchal rigidity, or vertebral point tenderness. No Meningismus. Chest/axilla: Normal chest wall appearance and motion. Nontender with no deformity. No lesions are appreciated. 22:30 Abdomen/GI: Soft, non-tender, with normal bowel sounds. No distension or tympany. No guarding or rebound. No evidence of tenderness throughout. Back: No spinal tenderness. No costovertebral tenderness. Full range of motion. Skin: Warm, dry with normal turgor. Normal color with no rashes, no lesions, and no evidence of cellulitis. MS/ Extremity: Pulses equal, no cyanosis. Neurovascular intact. Full, normal range of motion. Neuro: Awake and alert, GCS 15, oriented to person, place, time, and situation. Cranial nerves II-XII grossly intact. Motor strength 5/5 in all extremities. Sensory grossly intact. Cerebellar exam normal. Normal gait. Psych: Awake, alert, with orientation to person, place and time. Behavior, mood, and affect are within normal limits. 22:30 Cardiovascular: Rate: tachycardic, Rhythm: regular, Pulses: no pulse deficits are appreciated, Heart sounds: normal, Edema: is not appreciated. 22:30 Respiratory: mild respiratory distress is noted, Respirations: shallow respirations, tachypnea, Breath sounds: are clear throughout. Vital Signs: 21:09 BP 139 / 84; Pulse 108; Resp 22; Temp 98.3(O); Pulse Ox 98% on R/A; Weight 113.4 kg ll3 (R); Height 5 ft. 3 in. (160.02 cm); Pain 2/10; 22:00 BP 140 / 82; Pulse 83; Resp 16; Pulse Ox 100% on R/A; jb4 23:15 BP 118 / 76; Pulse 82; Resp 16; Pulse Ox 100% on R/A; jb4 21:09 Body Mass Index 44.29 (113.40 kg, 160.02 cm) ll3 MDM: 21:25 Patient medically screened. snw 22:27 Differential Diagnosis: Bronchitis Upper Respiratory Infection Asthma Exacerbation snw Pneumonia Other PE, GERD. Data reviewed: vital signs, nurses notes, lab test result(s). Test considered but Not performed: Other Details Pt has a known clotting disorder and is supposed to start Low dose heparin with any new pregnancies. Pt is newly , has not started heparin and is tachycardic, tachypneic, with chest pain on inspiration/activity, SOB. Discussed CT with contrast for PE with pt in regards to risks. Pt consents to CT.. Care significantly affected by the following chronic conditions: Hypertension, Obesity, Clotting disorder. Counseling: I had a detailed discussion with the patient and/or guardian regarding: the historical points, exam findings, and any diagnostic results supporting the discharge/admit diagnosis, the presence of at least one elevated blood pressure reading (>120/80) during this emergency department visit, lab results. 07/24 21:07 Order name: Basic Metabolic Panel; Complete Time: 22:20 ms3 07/24 21:07 Order name: CBC with Diff; Complete Time: 21:59 ms3 07/24 21:07 Order name: Troponin HS; Complete Time: 22:20 ms3 07/24 21:09 Order name: D-Dimer; Complete Time: 22:23 ms3 07/24 21:25 Order name: Abo/rh Typing; Complete Time: 22:20 snw 07/24 21:07 Order name: EKG; Complete Time: 21:09 ms3 07/24 21:25 Order name: COVID-19/FLU A+B/RSV; Complete Time: 22:23 snw 07/24 21:44 Order name: HCG, Quantitative; Complete Time: 22:20 EDMS 07/24 22:30 Order name: CT Chest For PE Angio snw 07/24 21:07 Order name: EKG - Nurse/Tech; Complete Time: 21:41 ms3 07/24 21:07 Order name: IV Saline Lock; Complete Time: 21:41 ms3 07/24 21:07 Order name: Labs collected and sent; Complete Time: 21:41 ms3 07/24 21:07 Order name: O2 Per Protocol; Complete Time: 21:23 ms3 07/24 21:07 Order name: O2 Sat Monitoring; Complete Time: 21:23 ms3 07/24 21:08 Order name: Cardiac monitoring; Complete Time: 21:41 ms3 EC:30 Rate is 96 beats/min. Rhythm is regular. PA interval is normal. QRS interval is normal. snw QT interval is normal. Clinical impression: NSR w/ Non-specific ST/T Changes. Administered Medications: 23:26 Not Given (Physician Discretion): NS 0.9% 1000 ml IV at 75 ml/hr continuous jb4 23:27 Drug: NS 0.9% 500 ml Route: IV; Rate: bolus; Site: right antecubital; jb4 Disposition: 23:11 PA/PRODUCT AMBASSADOR's history reviewed, patient interviewed, and examined. HPI: 37-year-old female ms3 with past medical history of hypertension, PCOS, clotting disorder presents for chest pain and shortness of breath that has been ongoing for 2 days. Patient noted heart rate to be in the 130s. My personal exam of patient reveals: Patient is alert and oriented x4, in no apparent distress, nontoxic-appearing. Heart rate is tachycardic and regular, lungs clear to auscultation bilaterally. Skin dry, without rashes. Disposition Summary: 07/25/22 00:25 Discharge Ordered Location: Home snw Condition: Stable snw Diagnosis - Dyspnea snw - Gastro-esophageal reflux disease without esophagitis snw Followup: snw - With: Emergency Department - When: As needed - Reason: Worsening of condition Followup: snw - With: Private Physician - When: 2 - 3 days - Reason: Recheck today's complaints, Continuance of care, Re-evaluation by your physician Discharge Instructions: - Discharge Summary Sheet snw - Food Choices for Gastroesophageal Reflux Disease, Adult snw - Gastroesophageal Reflux Disease, Adult snw - Heartburn During snw - First Trimester of snw Forms: - Medication Reconciliation Form snw - Thank You Letter snw - Antibiotic Education snw - Prescription Opioid Use snw Prescriptions: - Gas-X - take 240 milligram by ORAL route 2-3 times daily; 1 box; Refills: 0, Product snw Selection Permitted - Pepcid 20 mg Oral Tablet - take 1 tablet by ORAL route once daily; 20 tablet; Refills: 0, Product snw Selection Permitted Signatures: Dispatcher [employer] EDMS Rebekah Pierre, SIGNAL WORKER-C SIGNAL WORKER-Csnw Ab Ayala, RN RN jb4 Andreas Green DO DO ms3 Michela Gillespie, RN RN ll3 Corrections: (The following items were deleted from the chart) 21:08 21:07 Cardiac monitoring ordered. ms3 ms3 21:44 21:26 QUANTITATIVE HCG+C.LAB.BRZ ordered. EDMS EDMS 22:42 21:10 Chest Single View+RAD.RAD.BRZ ordered. EDMS EDMS
[2022-07-25 00:49] VITALS: TEMP 98.3
[2022-07-25 00:50] VITALS: O2SAT 100
[2022-07-25 00:51] VITALS: BP 118/76
--- NOTE | 2022-07-25 18:42 | RAD REPORT ---
EXAM DESCRIPTION: Chest For Pe Angio CLINICAL HISTORY: 37 years Female Chest pain COMPARISON: None TECHNIQUE: Images were obtained in axial, sagittal, and coronal planes. Intravenous contrast was adm inistered. 3-D MIP imaging was performed. This exam was performed according to our departmental dose-optimization program which includes use of Automated Exposure Control, adjustment of the mA and/or kV according to patient size and/or use of i terative reconstruction technique. FINDINGS: No filling defects pulmonary arteries bilaterally. No aortic dissection or dilatation. No right heart strain. No pericardial or pleural effusions bilaterally. No adenopathy. No lung parenchymal infiltrates or nodules seen. No pneumothorax. No abnormality upper abdomen. No acute osseous abnormality. IMPRESSION: No evidence for pulmonary embolus. No aortic dissection or dilatation. No infiltrate see n. Electronically signed by: Halina Linder MD 07/24/2022 11:22 PM FOREST PATHOLOGY ASSOCIATE PROFESSOR Due to temporary technical issues with the PACS/Fluency reporting system, reports are being signed by the in house radiologists without review as a courtesy to insure prompt reporting. The interpreting radiologist is fully responsible for the content of the report.
--- NOTE | 2022-07-27 17:21 | EKG ---
Test Date: 2022-07-24 Test Time: 21:25:10 Flatwork Assembler: MEASUREMENT RESULTS: Intervals: Rate: 96 WV: 144 QRSD: 78 QT: 344 QTc: 434 Henderson: P: 19 WV: 144 QRS: 5 T: 29 INTERPRETIVE STATEMENTS: Normal sinus rhythm Cannot rule out Anterior infarct, age undetermined Abnormal ECG Compared to ECG 01/08/2020 18:55:51 Myocardial infarct finding now present Electronically Signed On 07-27-22 17:14:23 SCREW MACHINE TENDER by Ramón Porter
== END 2022-07-25 00:39 | disposition home or self-care (01) ==
LOC: ER 21:02
DX: R06.00 Dyspnea, unspecified (principal); K21.9 Gastro-esophageal reflux disease without esophagitis; I10 Essential (primary) hypertension; Z20.822 Contact with and (suspected) exposure to COVID-19; Z88.3 Allergy status to other anti-infective agents; Z91.018 Allergy to other foods; Z91.040 Latex allergy status; Z91.048 Other nonmedicinal substance allergy status
CPT/HCPCS: 85025; 80048; 36415; 86900; 86901; 85379; 84702; 84484; 0241U; 71275; 99284; Q9967; J7040; 93005

== ENCOUNTER 2022-11-14 18:41 | Emergency (ER) | payer BC ==
--- OUTSIDE RECORDS SUMMARY | 2022-11-14 18:49 | XMS REPORT | Continuity of Care Document ---
:1985 Author Organization [facility] t Address [address] [place] [address] [place] [id number] Care Team Providers Name Role Phone KESHIA BOWER Primary Care Physician Unavailable ENDER MALONE Attending Clinician Unavailable Rush_Faisal Attending Clinician Unavailable Palma_Steven Attending Clinician Unavailable LOLITA COLEMAN Attending Clinician Unavailable Kerrie Kaur Attending Clinician Lolita Coleman MD Attending Clinician Sophia Schuster Attending Clinician TIA TEJEDA Attending Clinician Unavailable Tia Le Attending Clinician Unknown, Attending Attending Clinician Unavailable UNKNOWN, ATTENDING Attending Clinician Unavailable RENEE LAGUERRE Attending Clinician Unavailable ARNIE MOSHER Attending Clinician Unavailable Doctor Unassigned, Vol[place] Attending Clinician Unavailable Keshia Rosenberg Attending Clinician Tesfaye De La O DO Attending Clinician Juan A Leonardo MD Attending Clinician GOPI DOMINGUEZ Attending Clinician Unavailable Gisela Young Attending Clinician Unavailable G_Pappakrzysztof Admitting Clinician Unavailable Palma_Steven Admitting Clinician Unavailable Ender Malone Admitting Clinician Unavailable Payers Payer Name Policy Type Policy Number Effective Date Expiration Date S ource [place] [id number] 2021 (PPO) 00:00:00 [employer] COMMERCIAL [id number] 2020 OUT OF NETWORK 00:00:00 [facility] - [id number] 2020 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 AETNA [id number] 2016 00:00:00 Problems Condition Condition Condition Status Onset Resolution Last Treating Co mments Source Name Details Category Date Date Treatment Clinician Date Gestationa Gestationa Problem Active [facility] l diabetes l Diabetes 6-01 da mellitus Mellitus 00:00: Medica l 00 Group RhD RhD Problem Active [facility] negative Negative 5-03 da 00:00: Medical 00 Group Protein C Protein C Problem Active [facility] deficiency Deficiency 4-12 da disease Disease 00:00: Medical 00 Group 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 Diabetes 00:00: Medica l mellitus Mellitus 00 Group 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 2-27 da 00:00: Medical 00 Group Depressive Depressive Problem Active [facility] disorder Disorder 2-27 da 00:00: Medical 00 Group Benign Benign Problem Active [facility] essential Essential 2-27 da hypertensi Hypertensi 00:00: Me dical on Group complicati Complicati ng ng , , childbirth Childbirth and the and the puerperium Puerperium - not - Not delivered Delivered Multigravi Multigravi Problem Active [facility] da of da of 2-27 da advanced Advanced 00:00: Medica l maternal Maternal 00 Group age Age Problem Active [facility] 2-27 da 00:00: Medical 00 Group History of History of Problem Active [facility] pre-eclamp Pre-eclamp 2-27 da darren darren 00:00: Medical 00 Group Maternal Maternal Problem Active [facility] history of History of 2-27 da gestationa Gestationa 00:00: Me dical l diabetes l Diabetes 00 Gr oup High risk High Risk Problem Active [facility] 2-10 da due to Due to 00:00: Medical recurrent Recurrent 00 Grou p loss Loss Body mass Body Mass Problem Active [facility] index 40+ Index 40+ 4-18 da - severely - Severely 00:00: Me dical obese Obese 00 Group Benign Benign Problem Active [place] essential Essential 9-22 da hypertensi Hypertensi 00:00: Me dical on on 00 Group Nicotine Nicotine Problem Active [facility] dependence Dependence 3-31 da 00:00: Medical 00 Group Polycystic Polycystic Problem Active [facility] ovaries Ovaries 2-10 da 00:00: Medical 00 Group Blood Blood Problem Active [facility] coagulatio Coagulatio 726 da n disorder n Disorder 00:00: Me dical 00 Group Anxiety Anxiety Problem Active [facility] 7 da 00:00: Medical Group Essential Essential Problem Active [facility] hypertensi Hypertensi 7- da on on 00:00: Medical 00 Group Obesity Obesity Problem Active [facility] Allergies, Adverse Reactions, Alerts Allergy Allergy Status Severity Reaction(s) Onset Inactive Treating Comm ents Source Name Type Date Date Clinician Clindamy Allergy Active [facility] mike to 7 da substanc 00:00: Medical e 00 Group Erythrom Allergy Active [place] ycin to 7 da Base substanc 00:00: Medical e 00 Group Latex Allergy Active Rash [facility] to 7 da substanc 00:00: Medical e 00 Group CLINDAMY DRUG Active Unknown-Cmnt Un melo MIKE [...] 01-05 ity of adverse 00:00: [place] reaction Medical s Branch Latex Propensi Active Rash Univers ty to 01-05 ity of adverse 00:00: [place] reaction 00 Medical s Branch Social History Social Habit Start Date Stop Date Quantity Comments Source History [facility] o f Alcohol Binge [place] [facility] Exposure to Not sure University of SARS-CoV-2 (event) [facility] History of tobacco Cigarette Smoker University of use [facility] Branch History [facility] o f Alcohol Std Drinks [facility] Alcohol intake 2021-06-09 2021-06-09 Current drinker Unive rsity of 00:00:00 00:00:00 of alcohol [place] [facility] (finding) Branch Alcohol Comment 2016-01-06 2016-01-06 occasional Universit y of 00:00:00 00:00:00 [facility] Tobacco use and 2016-01-06 2016-01-06 Never used Universit y of exposure 00:00:00 00:00:00 [facility] Cigarettes smoked 2016-01-06 2016-01-06 Univers ity of current (pack per 00:00:00 [facility]:00:00 [facility] - Reported Branch Cigarette 2016-01-06 2016-01-06 University of pack-years 00:00:00 00:00:00 [facility] Sex [birth year] At [birth year] Universit y of 00:00:00 00:00:00 [facility] Smoking Status Start Date Stop Date Source Light Tobacco Smoker [facility] Current every day smoker 2016-01-06 00:00:00 Uni versity of [facility] Medications Ordered Filled Start Stop Current Ordering Indication Dosage Frequency Signature Comments Components Source Medication Medication Date Date Medication? Clinician (SIG) Name Name methylPREDN 2020-06- No [id number] 80mg Univers ISolone 06-10 ity of acetate 03:30: 02:26 [place] (DEPO-MEDRO 00 :00 Medical L) Branch injection 80 mg methylPREDN 2020-06- No [id number] 80mg 80 mg, Univers ISolone 06-10 Intramuscu ity o f acetate 03:30: 02:26 lar, ONCE, [place] (DEPO-MEDRO 00 :00 1 dose, On [place] dical L) Tue Branch injection 06/09/21 80 mg at 2130, Routine albuterol 2020-06- No [id number] 2{puff} Univers (VENTOLIN) 06-10 ity of inhaler 2 02:16: 02:26 [place] Puff 00 :00 Medical Branch albuterol 2020-06- No [id number] 2{puff} 2 Puff, Univers (VENTOLIN) 06-10 Inhalation it y of inhaler 2 02:16: 02:26 [place]uff [place] :[place] dose, On Medical Tue Branch 06/09/21 at 2030, Routine ampicillin 2020-06- No [id number] 500mg Take 1 Univers 500 mg 08-08 capsule by ity of capsule 00:00: 05:59 mouth [place] 00 :00 every 6 Medical (six) Branch hours for 7 days. Nitrofurant 2020-06- No [id number] 100mg Take 1 Univers oin&Nit. 08-05 capsule by ity of Macrocryst 00:00: 05:59 mouth 2 [facility]i as (MACROBID) 00 :00 (two) Medical 100 mg times Branch capsule daily for 7 days. ESCITALOPRA 2019- Yes [id number] Take 1 Univers M OXALATE 8-31 tablet by ity o f 20 mg 00:00: mouth once [place] tablet 00 daily Medical Branch aspirin 2020 Yes 81mg Take 81 mg Univ ers (ASPIRIN 2-19 by mouth ity of LOW DOSE) 13:43: daily. [place] 81 mg EC 13 Medical tablet Branch lisinopril- 2020-0 Yes [id number] 1{tbl} Take 1 Univers hydrochloro 2-19 tablet by ity of thiazide 13:43: mouth [place] 20-12.5 mg 13 every Medical per tablet morning. Branc h buPROPion Yes [id number] Start 1 U nivers SR 4-16 tab PO ity of (WELLBUTRIN 00:00: daily x 3 [place] SR) 150 mg 00 days, then Med ical SR tablet increase Branch to 1 tab PO BID. amoxicillin amoxicillin No amoxicilli [facility] [phone] n 875 da mg-potassiu mg-potassiu mg-potassi Medical m m um Group clavulanate clavulanate clavulanat 125 mg 125 mg e 125 mg tablet TAKE tablet TAKE tablet 1 TABLET BY 1 TABLET BY TAKE 1 MOUTH TWICE MOUTH TWICE TABLET BY DAILY DAILY MOUTH TWICE DAILY aspirin 81 aspirin 81 No aspirin 81 [facility] mg mg mg da tablet,shanon tablet,shanon tablet,del Medical yed release yed release ayed G roup TAKE 1 TAKE 1 release TABLET BY TABLET BY TAKE 1 MOUTH EVERY MOUTH EVERY TABLET BY DAY DAY MOUTH EVERY DAY bupropion bupropion No bupropion [facility] HCl SR 150 HCl SR 150 HCl SR 150 da mg mg mg Medical tablet,12 tablet,12 tablet,12 Group hr hr hr sustained-r sustained-r sustained- elease TAKE elease TAKE release 1 TABLET BY 1 TABLET BY TAKE 1 MOUTH TWICE MOUTH TWICE TABLET BY DAILY FOR DAILY FOR MOUTH DEPRESSION DEPRESSION TWICE DAILY FOR DEPRESSION ciprofloxac ciprofloxac No ciprofloxa [place] in 500 mg in 500 mg mike 500 mg da tablet TAKE tablet TAKE tablet Medical 1 TABLET BY 1 TABLET BY TAKE 1 Group MOUTH TWICE MOUTH TWICE TABLET BY DAILY DAILY MOUTH TWICE DAILY Cortisporin Cortisporin No Cortispori [facility] -TC 3.3 -TC 3.3 n-TC 3.3 da mg-3 mg-10 mg-3 mg-10 mg-3 mg-10 Medical mg-0.5 mg-0.5 mg-0.5 Group mg/mL ear mg/mL ear mg/mL ear drops,suspe drops,suspe drops,susp nsion nsion ension INSTILL 1 INSTILL 1 INSTILL 1 DROP INTO DROP INTO DROP INTO AFFECTED AFFECTED AFFECTED EAR(S) EAR(S) EAR(S) EVERY 4 EVERY 4 EVERY 4 HOURS HOURS HOURS escitalopra escitalopra No escitalopr [place] m 20 mg m 20 mg am 20 mg da tablet TAKE tablet TAKE tablet Medical 1 TABLET BY 1 TABLET BY TAKE 1 Group MOUTH ONCE MOUTH ONCE TABLET BY DAILY FOR DAILY FOR MOUTH ONCE DEPRESSION DEPRESSION DAILY FOR (NEED (NEED DEPRESSION APPOINTMENT APPOINTMENT (NEED FOR FURTHER FOR FURTHER APPOINTMEN REFILLLS) REFILLLS) T FOR FURTHER REFILLLS) lisinopril lisinopril No lisinopril [facility] 10 10 10 da mg-hydrochl mg-hydrochl mg-hydroch Medical orothiazide orothiazide [facility] Group 12.5 mg 12.5 mg de 12.5 mg tablet TAKE tablet TAKE tablet 1 TABLET BY 1 TABLET BY TAKE 1 MOUTH ONCE MOUTH ONCE TABLET BY DAILY FOR DAILY FOR MOUTH ONCE BLOOD BLOOD DAILY FOR PRESSURE PRESSURE BLOOD PRESSURE metformin metformin No 1 BID metformin [facility] 500 mg 500 mg 500 mg da tablet Take tablet Take tablet Medical 1 tablet 1 tablet Take 1 Group twice a day twice a day tablet by oral by oral twice a route. route. day by oral route. methylpredn methylpredn No methylpred [facility] isolone 4 isolone 4 nisolone 4 da mg tablets mg tablets mg tablets Medical in a dose in a dose in a dose Group pack TAKE pack TAKE pack TAKE DIRECTED DIRECTED DIRECTED phenazopyri phenazopyri No phenazopyr [place] dine 200 mg dine 200 mg idine 200 da tablet tablet mg tablet Medica l Group Prescriptio Prescriptio No Prescripti [place] n - Prior n - Prior on - Prior da Authorizati Authorizati Authorizat Medical on Request on Request ion Naila up Request progesteron progesteron No 1capsul BID progestero [place] e e e(s) ne da micronized micronized micronized Medical 200 mg 200 mg 200 mg Group capsule capsule capsule Take 1 Take 1 Take 1 capsule capsule capsule twice a day twice a day twice a by oral by oral day by route. route. oral route. aspirin 81 aspirin 81 No aspirin 81 [facility] mg mg mg da tablet,shanon tablet,shanon tablet,del Medical yed release yed release ayed G roup TAKE 1 TAKE 1 release TABLET BY TABLET BY TAKE 1 MOUTH EVERY MOUTH EVERY TABLET BY DAY DAY MOUTH EVERY DAY ciprofloxac ciprofloxac No ciprofloxa [place] in 500 mg in 500 mg mike 500 mg da tablet TAKE tablet TAKE tablet Medical 1 TABLET BY 1 TABLET BY TAKE 1 Group MOUTH TWICE MOUTH TWICE TABLET BY DAILY DAILY MOUTH TWICE DAILY Diflucan Diflucan No 1 Q1D Diflucan [facility] 200 mg 200 mg 200 mg da tablet Take tablet Take tablet Medical 1 tablet 1 tablet Take 1 Group every day every day tablet by oral by oral every day route for 3 route for 3 by oral days. days. route for 3 days. enoxaparin enoxaparin No enoxaparin [facility] 40 mg/0.4 40 mg/0.4 40 mg/0.4 da mL mL mL Medical subcutaneou subcutaneou subcutaneo Group s syringe s syringe us syringe INJECT 40MG INJECT 40MG INJECT SUBCUTANEOU SUBCUTANEOU 40MG S DAILY S DAILY SUBCUTANEO US DAILY metformin metformin No 1 BID metformin [facility] 500 mg 500 mg 500 mg da tablet Take tablet Take tablet Medical 1 tablet 1 tablet Take 1 Group twice a day twice a day tablet by oral by oral twice a route. route. day by oral route. progesteron progesteron No 1capsul BID progestero [place] e e e(s) ne da micronized micronized micronized Medical 200 mg 200 mg 200 mg Group capsule capsule capsule Take 1 Take 1 Take 1 capsule capsule capsule twice a day twice a day twice a by oral by oral day by route. route. oral route. escitalopra escitalopra No escitalopr [place] m 20 [...] a route. route. day by oral route. enoxaparin enoxaparin No enoxaparin [facility] 40 mg/0.4 40 mg/0.4 40 mg/0.4 da mL mL mL Medical subcutaneou subcutaneou subcutaneo Group s syringe s syringe us syringe INJECT 40MG INJECT 40MG INJECT SUBCUTANEOU SUBCUTANEOU 40MG S DAILY S DAILY SUBCUTANEO US DAILY omeprazole omeprazole No 1capsul Q1D omeprazole [facility] 40 mg 40 mg e(s) 40 mg da capsule,del capsule,del capsule,de Medical ayed ayed layed Group release release release Take 1 Take 1 Take 1 capsule capsule capsule every day every day every day by oral by oral by oral route. route. route. Wellbutrin Wellbutrin No 1 BID Wellbutrin [facility] SR 150 mg SR 150 mg SR 150 mg da tablet, 12 tablet, 12 tablet, 12 Medical hr hr hr Group sustained-r sustained-r sustained- elease Take elease Take release 1 tablet 1 tablet Take 1 twice a day twice a day tablet by oral by oral twice a route. route. day by oral route. progesteron progesteron No progestero [place] e e ne da micronized micronized micronized Medical 200 mg 200 mg 200 mg Group capsule capsule capsule Take 1 Take 1 Take 1 capsule capsule capsule twice a day twice a day twice a by oral by oral day by route. route. oral route. Reglan 10 Reglan 10 No 1 QID Reglan 10 [facility] mg tablet mg tablet mg tablet da Take 1 Take 1 Take 1 Medical tablet 4 tablet 4 tablet 4 Naila up times a day times a day times a by oral by oral day by route as route as oral route directed directed as for 30 for 30 directed days. days. for 30 days. enoxaparin enoxaparin No enoxaparin [facility] 40 mg/0.4 40 mg/0.4 40 mg/0.4 da mL mL mL Medical subcutaneou subcutaneou subcutaneo Group s syringe s syringe us syringe INJECT 40MG INJECT 40MG INJECT SUBCUTANEOU SUBCUTANEOU 40MG S DAILY S DAILY SUBCUTANEO US DAILY metoclopram metoclopram No metoclopra [place] alma rosa 10 mg alma rosa 10 mg mide 10 mg da tablet TAKE tablet TAKE tablet Medical 1 TABLET BY 1 TABLET BY TAKE 1 Group MOUTH FOUR MOUTH FOUR TABLET BY TIMES DAILY TIMES DAILY MOUTH FOUR DIRECTED DIRECTED TIMES DAILY DIRECTED omeprazole omeprazole No omeprazole [facility] 40 mg 40 mg 40 mg da capsule,del capsule,del capsule,de Medical ayed ayed layed Group release release release TAKE 1 TAKE 1 TAKE 1 CAPSULE BY CAPSULE BY CAPSULE BY MOUTH EVERY MOUTH EVERY MOUTH DAY DAY EVERY DAY progesteron progesteron No progestero [place] e e ne da micronized micronized micronized Medical 200 mg 200 mg 200 mg Group capsule capsule capsule TAKE 1 TAKE 1 TAKE 1 CAPSULE BY CAPSULE BY CAPSULE BY MOUTH TWICE MOUTH TWICE MOUTH DAILY DAILY TWICE DAILY bupropion bupropion No bupropion [place] HCl XL 300 HCl XL 300 HCl XL 300 da mg 24 hr mg 24 hr mg 24 hr Med ical tablet, tablet, tablet, Group extended extended extended release release release TAKE 1 TAKE 1 TAKE 1 TABLET BY TABLET BY TABLET BY MOUTH EVERY MOUTH EVERY MOUTH DAY DAY EVERY DAY enoxaparin enoxaparin No enoxaparin [facility] 40 mg/0.4 40 mg/0.4 40 mg/0.4 da mL mL mL Medical subcutaneou subcutaneou subcutaneo Group s syringe s syringe us syringe INJECT 40MG INJECT 40MG INJECT SUBCUTANEOU SUBCUTANEOU 40MG S DAILY S DAILY SUBCUTANEO US DAILY ferrous ferrous No 1 Q1D ferrous [facility] gluconate gluconate gluconate da 240 mg (27 240 mg (27 240 mg (27 Medical mg iron) mg iron) mg iron) Naila up tablet Take tablet Take tablet 1 tablet 1 tablet Take 1 every day every day tablet by oral by oral every day route. route. by oral route. metoclopram metoclopram No metoclopra [place] alma rosa 10 mg alma rosa 10 mg mide 10 mg da tablet TAKE tablet TAKE tablet Medical 1 TABLET BY 1 TABLET BY TAKE 1 Group MOUTH FOUR MOUTH FOUR TABLET BY TIMES DAILY TIMES DAILY MOUTH FOUR DIRECTED DIRECTED TIMES DAILY DIRECTED omeprazole omeprazole No omeprazole [facility] 40 mg 40 mg 40 mg da capsule,del capsule,del capsule,de Medical ayed ayed layed Group release release release TAKE 1 TAKE 1 TAKE 1 CAPSULE BY CAPSULE BY CAPSULE BY MOUTH EVERY MOUTH EVERY MOUTH DAY DAY EVERY DAY progesteron progesteron No progestero [place] e e ne da micronized micronized micronized Medical 200 mg 200 mg 200 mg Group capsule capsule capsule TAKE 1 TAKE 1 TAKE 1 CAPSULE BY CAPSULE BY CAPSULE BY MOUTH TWICE MOUTH TWICE MOUTH DAILY DAILY TWICE DAILY amoxicillin amoxicillin No amoxicilli [facility] 875 875 n 875 da mg-potassiu mg-potassiu mg-potassi Medical m m um Group clavulanate clavulanate clavulanat 125 mg 125 mg e 125 mg tablet TAKE tablet TAKE tablet 1 TABLET BY 1 TABLET BY TAKE 1 MOUTH TWICE MOUTH TWICE TABLET BY DAILY DAILY MOUTH TWICE DAILY aspirin 81 aspirin 81 No aspirin 81 [facility] mg mg mg da tablet,shanon tablet,shanon tablet,del Medical yed release yed release ayed G roup TAKE 1 TAKE 1 release TABLET BY TABLET BY TAKE 1 MOUTH EVERY MOUTH EVERY TABLET BY DAY DAY MOUTH EVERY DAY bupropion bupropion No bupropion [place] HCl SR 150 HCl SR 150 HCl SR 150 da mg mg mg Medical tablet,12 tablet,12 tablet,12 Group hr hr hr sustained-r sustained-r sustained- elease TAKE elease TAKE release 1 TABLET BY 1 TABLET BY TAKE 1 MOUTH TWICE MOUTH TWICE TABLET BY DAILY FOR DAILY FOR MOUTH DEPRESSION DEPRESSION TWICE DAILY FOR DEPRESSION ciprofloxac ciprofloxac No ciprofloxa [place] in 500 mg in 500 mg mike 500 mg da tablet TAKE tablet TAKE tablet Medical 1 TABLET BY 1 TABLET BY TAKE 1 Group MOUTH TWICE MOUTH TWICE TABLET BY DAILY DAILY MOUTH TWICE DAILY Cortisporin Cortisporin No Cortispori [facility] -TC 3.3 -TC 3.3 n-TC 3.3 da mg-3 mg-10 mg-3 mg-10 mg-3 mg-10 Medical mg-0.5 mg-0.5 mg-0.5 Group mg/mL ear mg/mL ear mg/mL ear drops,suspe drops,suspe drops,susp nsion nsion ension INSTILL 1 INSTILL 1 INSTILL 1 DROP INTO DROP INTO DROP INTO AFFECTED AFFECTED AFFECTED EAR(S) EAR(S) EAR(S) EVERY 4 EVERY 4 EVERY 4 HOURS HOURS HOURS escitalopra escitalopra No escitalopr [place] m 20 mg m 20 mg am 20 mg da tablet TAKE tablet TAKE tablet Medical 1 TABLET BY 1 TABLET BY TAKE 1 Group MOUTH ONCE MOUTH ONCE TABLET BY DAILY FOR DAILY FOR MOUTH ONCE DEPRESSION DEPRESSION DAILY FOR (NEED (NEED DEPRESSION APPOINTMENT APPOINTMENT (NEED FOR FURTHER FOR FURTHER APPOINTMEN REFILLLS) REFILLLS) T FOR FURTHER REFILLLS) lisinopril lisinopril No lisinopril [place] 10 10 10 da mg-hydrochl mg-hydrochl mg-hydroch Medical orothiazide orothiazide [facility] 12.5 mg 12.5 mg de 12.5 mg tablet TAKE tablet TAKE tablet 1 TABLET BY 1 TABLET BY TAKE 1 MOUTH ONCE MOUTH ONCE TABLET BY DAILY FOR DAILY FOR MOUTH ONCE BLOOD BLOOD DAILY FOR PRESSURE PRESSURE BLOOD PRESSURE metformin metformin No 1 BID metformin [facility] 500 mg 500 mg 500 mg da tablet Take tablet Take tablet Medical 1 tablet 1 tablet Take 1 Group twice a day twice a day tablet by oral by oral twice a route. route. day by oral route. methylpredn methylpredn No methylpred [facility] isolone 4 isolone 4 nisolone 4 da mg tablets mg tablets mg tablets Medical in a dose in a dose in a dose Group pack TAKE pack TAKE pack TAKE DIRECTED DIRECTED DIRECTED phenazopyri phenazopyri No phenazopyr [place] dine 200 mg dine 200 mg idine 200 da tablet tablet mg tablet Medica l Group Prescriptio Prescriptio No Prescripti [place] n - Prior n - Prior on - Prior da Authorizati Authorizati Authorizat Medical on Request on Request ion Naila up Request progesteron progesteron No 1capsul BID progestero [place] e e e(s) ne da micronized micronized micronized Medical 200 mg 200 mg 200 mg Group capsule capsule capsule Take 1 Take 1 Take 1 capsule capsule capsule twice a day twice a day twice a by oral by oral day by route. route. oral route. Immunizations Ordered Filled Immunization Date Status Comments [facility] Immunization Name Name COVID-19 COVID-19 2020-12-11 Completed [facility] (SARS-COV-2) (SARS-COV-2) 00:00:00 Group vaccine, vaccine, unspecified unspecified COVID-19 COVID-19 2020-12-11 Completed [facility] (SARS-COV-2) (SARS-COV-2) 00:00:00 Group vaccine, vaccine, unspecified unspecified COVID-19 COVID-19 2020-12-11 Completed [facility] (SARS-COV-2) (SARS-COV-2) 00:00:00 Group vaccine, vaccine, unspecified unspecified COVID-19 COVID-19 2020-12-11 Completed [facility] (SARS-COV-2) (SARS-COV-2) 00:00:00 Group vaccine, vaccine, unspecified unspecified COVID-19 COVID-19 2020-12-11 Completed [facility] (SARS-COV-2) (SARS-COV-2) 00:00:00 Group vaccine, vaccine, unspecified unspecified COVID-19 COVID-19 2020-12-11 Completed [facility] (SARS-COV-2) (SARS-COV-2) 00:00:00 Group vaccine, vaccine, unspecified unspecified COVID-19 COVID-19 2020-09-11 Completed [facility] (SARS-COV-2) (SARS-COV-2) 00:00:00 Group vaccine, vaccine, unspecified unspecified COVID-19 COVID-19 2020-09-11 Completed [facility] (SARS-COV-2) (SARS-COV-2) 00:00:00 Group vaccine, vaccine, unspecified unspecified COVID-19 COVID-19 2020-09-11 Completed [facility] (SARS-COV-2) (SARS-COV-2) 00:00:00 Group vaccine, vaccine, unspecified unspecified COVID-19 COVID-19 2020-09-11 Completed [facility] (SARS-COV-2) (SARS-COV-2) 00:00:00 Group vaccine, vaccine, unspecified unspecified COVID-19 COVID-19 2020-09-11 Completed [facility] (SARS-COV-2) (SARS-COV-2) 00:00:00 Group vaccine, vaccine, unspecified unspecified COVID-19 COVID-19 2020-09-11 Completed [facility] (SARS-COV-2) (SARS-COV-2) 00:00:00 Group vaccine, vaccine, unspecified unspecified HEP B, Adult Dosage 2018-01-26 Completed Unive rsity of 00:00:00 [facility] Hep B, adult Hep B, adult 2018-01-26 Completed [facility] 00:00:00 Group Hep B, adult Hep B, adult 2018-01-26 Completed [facility] 00:00:00 Group Hep B, adult Hep B, adult 2018-01-26 Completed [facility] 00:00:00 Group Hep B, adult Hep B, adult 2018-01-26 Completed [facility] 00:00:00 Group Hep B, adult Hep B, adult 2018-01-26 Completed [facility] 00:00:00 Group Hep B, adult Hep B, adult 2018-01-26 Completed [facility] 00:00:00 Group Hep B, adult Hep B, adult 2018-01-26 Completed [facility] 00:00:00 Group TDAP 2018-01-09 Completed [facility] of 00:00:00 [facility] Tdap Tdap 2018-01-09 Completed [facility] 00:00:00 Group Tdap Tdap 2018-01-09 Completed [facility] 00:00:00 Group Tdap Tdap 2018-01-09 Completed [facility] 00:00:00 Group Tdap Tdap 2018-01-09 Completed [facility] 00:00:00 Group Tdap Tdap 2018-01-09 Completed [facility] 00:00:00 Group Tdap Tdap 2018-01-09 Completed [facility] 00:00:00 Group Tdap Tdap 2018-01-09 Completed [facility] 00:00:00 Group Vital Signs Vital Name Observation Time Observation Value Comments Source BP Diastolic 2022-11-11 00:00:00 87 mm[Hg] [facility] Height 2022-11-11 00:00:00 63 [in_i] [facility] BMI (Body Mass 2022-11-11 00:00:00 45.2 kg/m2 [facility] Group BP Systolic 2022-11-11 00:00:00 139 mm[Hg] [facility] Body Weight 2022-11-11 00:00:00 255 [lb_av] [facility] BP Diastolic 2022-10-13 00:00:00 78 mm[Hg] [facility] Height 2022-10-13 00:00:00 63 [in_i] [facility] BMI (Body Mass 2022-10-13 00:00:00 46.8 kg/m2 [facility] Medical Index) Group BP Systolic 2022-10-13 00:00:00 125 mm[Hg] [facility] Body Weight 2022-10-13 00:00:00 264.1 [lb_av] [facility] BP Diastolic 2022-09-14 00:00:00 83 mm[Hg] [facility] Height 2022-09-14 00:00:00 63 [in_i] [facility] BMI (Body Mass 2022-09-14 00:00:00 45.8 kg/m2 [place] [facility] BP Systolic 2022-09-14 00:00:00 146 mm[Hg] [facility] Body Weight 2022-09-14 00:00:00 258.4 [lb_av] [facility] BP Diastolic 2022-08-24 00:00:00 83 mm[Hg] [facility] Height 2022-08-24 00:00:00 63 [in_i] [facility] BMI (Body Mass 2022-08-24 00:00:00 47.7 kg/m2 [facility] Medical Index) Group BP Systolic 2022-08-24 00:00:00 136 mm[Hg] [facility] Body Weight 2022-08-24 00:00:00 269.5 [lb_av] [facility] Height 2022-08-09 00:00:00 63 [in_i] [facility] BMI (Body Mass 2022-08-09 00:00:00 47.6 kg/m2 [facility] Medical Index) Group BP Systolic 2022-08-09 00:00:00 140 mm[Hg] [facility] Body Weight 2022-08-09 00:00:00 268.5 [lb_av] [facility] BP Diastolic 2022-08-09 00:00:00 94 mm[Hg] [facility] Systolic blood 2021-06-10 02:00:00 142 mm[Hg] Univer sity of pressure [facility] Diastolic blood 2021-06-10 02:00:00 101 mm[Hg] Unive rsity of [facility]UST Heart rate 2021-06-10 02:00:00 113 /min [facility] Body temperature 2021-06-10 02:00:00 37.61 [facility] height 2021-06-10 02:00:00 160 cm [facility] Body weight 2021-06-10 02:00:00 122.046 kg [facility] BMI 2021-06-10 02:00:00 47.66 kg/m2 [facility] Oxygen saturation in 2021-06-10 02:00:00 96 /min [facility] Arterial blood by [facility] Pulse oximetry Branch BP Diastolic 2020-12-25 00:00:00 99 mm[Hg] [facility] Height 2020-12-25 00:00:00 63 [in_i] [facility] BMI (Body Mass 2020-12-25 00:00:00 46.1 kg/m2 [facility] Medical Index) Group BP Systolic 2020-12-25 00:00:00 150 mm[Hg] [facility] Body Weight 2020-12-25 00:00:00 4168 [oz_av] [facility] Procedures Procedure Date / Time Performing Clinician Source Performed ULTRASOUND, 2022-11-11 00:00[facility]00 [facility] UTERUS REAL TIME WITH Group IMAGE DOC, AND MATERNAL EVAL PLUS DETAILED ANATOMIC EXAMINATION, TRANSABDOMINAL APPROACH; SINGLE OR FIRST GESTATION US, obstetric, limited 2022-10-13 00:00:00 [facility] ord Medical Group US, obstetric, limited 2022-09-14 00:00:00 [facility] Group US, obstetric, limited 2022-08-24 00:00:00 [facility] Medical [facility] ULTRASOUND, 2022-08-09 00:00:00 [facility] UTERUS REAL TIME WITH Group IMAGE DOCUMENTAITON, TRANSVAGINAL I&d Abscess Subfascial 2017-04-13 00:00:00 [facility] Dilation and Curettage 2008-06-13 00:00:00 [facility] Dilation and Curettage 2003-06-13 00:00:00 [facility] Dilation and Curettage 1998-06-13 00:00:00 [facility] Plan of Care Planned Activity Planned Date Details Comments Source Diagnostic Test 2022-11-11 urinalysis, [facility] dical Pending 00:00:00 dipstick [code = Group urinalysis, dipstick] Diagnostic Test 2022-11-11 glucose tolerance [facility] Pending 00:00:00 test, 1-hour [code Group = glucose tolerance test, 1-hour] Diagnostic Test 2022-11-11 hemoglobin A1c, QN, [facility] ord[facility]ma Medical Pending 00:00:00 blood [code = Group hemoglobin A1c, QN, blood] Future Appointment 2022-12-30 Ender Malone, [facility] 08:45:00 [facility]; Group [address], [place] [address] Future Appointment 2022-12-30 Sonogram, [address] [place], [place] [address]elma huang [facility] 08:30:00 [facility]; Group [address] [facility], [place] [address] Future Appointment 2022-12-10 [facility] 09[facility] [place] [address]; Suite [facility], [place] [address] Instructions [facility] Encounters Start End Encounter Admission Attending Care Care Encounter Source Date/Time Date/Time Type Type Clinicians Facility Department ID 2022-11-11 2022-11-11 [id number] Claudio 09:30:00 09:30:00 ENDER De [id number] [facility] 2022-11-11 2022-11-11 Ender GUEVARA [place] - [id number] Wanda ring 00:00:00 00:00:00 Discovery reina Malone MD: [address] [place] [address] - [facility] [address], [place] [address] , Ph. [phone] 2022-11-10 2022-11-10 Outpatient G_Pappas [facility] 2022 [facility] 00:00:00 00:00:00 0531 [facility] 2022-11-10 2022-11-10 Outpatient G_Pappas [facility] 2022 [facility] 00:00:00 00:00:00 0601 [facility] 2022-11-01 2022-11-01 Outpatient G_Pappas [facility] 2022 [place] 00:00:00 00:00:00 0522 [facility] 2022-10-13 2022-10-13 Helen MM [place] - [id number] M atagor 00:00:00 00:00:00 Discovery reina Love [facility]: [address] [address] , Ph. [phone] 2022-09-27 2022-09-27 Outpatient G_[facility]appas [facility] 2022 [place] 00:00:00 00:00:00 0417 [facility] 2022-09-27 2022-09-27 Outpatient G_Pappas [facility] 2022 [place] 00:00:00 00:00:00 0503 [facility] 2022-09-14 2022-09-14 [facility] [place] - [id number] M atagor 00:00:00 00:00:00 Discovery reina Malone MD: [address] [place] [address] , Ph. [phone] 2022-08-31 2022-08-31 Outpatient G_Pappas [facility] 2022 [place] 00:00:00 00:00:00 0404 [facility] 2022-08-24 2022-08-24 Outpatient G_Pappas [facility] 2022 [place] 00:00:00 00:00:00 0314 [facility] 2022-08-24 2022-08-24 Ender [facility] [place] - [id number] M atagor 00:00:00 00:00:00 Discovery reina Malone MD: [address] [facility] [address] [address] , Ph. [phone] 2022-08-23 2022-08-23 Outpatient G_Pappas [facility] 2022 [place] 00:00:00 00:00:00 0313 [facility] Group 2022-08-09 2022-08-09 Outpatient EL Faisal, [facility] [id number] [facility] 15:41:00 15:41:00 Ender De [id number] [facility] 2022-08-09 2022-08-09 Outpatient G_Pappas [facility] 2022 [place] 00:00:00 00:00:00 0227 [facility] 2022-08-09 2022-08-09 Ender [facility] [place] - [id number] M atagor 00:00:00 00:00:00 Discovery reina Malone MD: [address] [address], [place] [address] , Ph. [phone] 2022-08-06 2022-08-06 Outpatient A_Byrd [facility] [id number] [facility] 00:00:00 00:00:00 0224 [facility] 2021-06-09 2021-06-09 Outpatient Kenan COLEMAN [facility] [id number] Univers 20:00:00 20:30:09 LOLITA [facility] 2021-06-09 2021-06-09 Urgent Kerrie Brown [facility] 1.2.840. 114 [id number] Univers 20:00:00 20:30:09 [facility] [id number] [facility] [id number] Fei as RADHA?BLEA [id number] [address] MEDICAL OFFICE BUILDING 2021-06-09 2021-06-09 Outpatient R VLADIMIR [facility] [id number] Univers 20:00:00 20:30:09 LOLITA [facility] 2021-06-07 2021-06-07 Telephone Ann-Marie [facility] 1.2.840.114 [id number] Univers 00:00:00 00:00:00 [facility] [id number] it y [facility] [id number] Fei as RADHA?BLEA [phone] [address] MEDICAL OFFICE [facility] 2021-06-04 2021-06-04 Outpatient R ILEANA [facility] [id number] Univers 14:40:00 15:47:35 TIA gwen [facility] 2021-06-04 2021-06-04 Urgent Tia Tejeda [facility] 1.2.840.114 [id number] Univers 14:40:00 15:00:00 Care Unknown, [facility] [id number] ity [facility] [id number] Fei as RADHA?BLEA [id number] [address] MEDICAL OFFICE [facility] 2021-06-04 2021-06-04 Outpatient R MARISOL [facility] [id number] Univers 14:40:00 14:40:00 [facility] 2021-04-29 2021-04-29 [place] [id number] [facility] 11:02:00 11:02:00 1117 [facility] 2021-04-09 2021-04-09 Outpatient A_Byrd [facility] MMG [id number] [place] 01:57:00 01:57:00 1028 [facility] 2021-03-05 2021-03-05 Outpatient A_Byrd [facility] MMG [id number] [facility] 01:40:00 01:40:00 0923 [facility] 2021-02-11 2021-02-11 Outpatient HAYDEN LAGUERRE, [facility] [id number] [facility] 00:13:00 00:13:00 RENEE De [id number] [facility] 2021-01-29 2021-01-29 Outpatient A_Byrd MMG MMG [id number] [place] 01:31:00 01:31:00 0819 Medical Group 2021-01-13 2021-01-13 Emergency ER , [facility] [id number] [facility] 07:05:00 07:50:00 WAS -[id number] [facility] 2020-12-25 2020-12-25 [place] [id number] [facility] 04:46:00 04:46:00 0715 Medical Group 2020-12-25 2020-12-25 [place] [id number] [place] 04:46:00 04:46:00 0717 Medical Group 2020-12-25 2020-12-25 Gisela Wilson MM [place] - [id number] M atagor 00:00:00 00:00:00 MD Steven: [address] Group [facility] 201, [facility] [place] [address] , Ph. 2020-12-24 2020-12-24 [facility] [id number] [facility] 04:06:00 04:06:00 0714 Medical Group 2020-12-17 2020-12-17 Refill Doctor [facility] 1.2.840.114 [id number] 00:00:00 00:00:00 Unassigned, Health [id number] [place] [id number] Professio [phone] nal [facility] Office Building One 2020-12-17 2020-12-17 Refill Teofilo, [facility] 1.2.840.114 [id number] 00:00:00 00:00:00 Keshia A [facility] [id number] [place] [id number] Professio [phone] nal [facility] Office Building One 2020-12-17 2020-12-17 Refill Doctor [facility] 1.2.840.114 [id number] Univers 00:00:00 00:00:00 Unassigned, Health [id number] ity of [place] [id number] Fei as Professio [phone] [facility] [address] Office Building One 2020-12-17 2020-12-17 [facility] 1.2.840.114 [id number] Univers 00:00:00 00:00:00 Keshia A Health [id number] i ty [place] [id number] Fei as Professio [phone] [facility] [address] Office Building One 2020-09-01 2020-09-01 Patient Jairon [facility] 1.2.840.114 [id number] 00:00:00 00:00:00 Outreach Tesfaye PRIMARY [id number] [facility] [id number] PAVILLION [id number] [facility] 2020-09-01 2020-09-01 Patient [facility] 1.2.840.114 [id number] Univers 00:00:00 00:00:00 Outreach Tesfaye PRIMARY [id number] i ty of [facility] [id number] [id number] [address] 2020-04-30 2020-04-30 [facility] [place] 02:19:00 02:19:00 0708 Medical Group 2020-04-30 2020-04-30 Outpatient G_Pappas [facility] MMG 2019 [place] 02:19:00 02:19:00 1118 Medical Group 2020-02-08 2020-02-08 Refill [facility] 1.2.840.114 [id number] 00:00:00 00:00:00 Keshia A Health [id number] [place] [id number] Professio [phone] [place] [address] Office [facility] One 2020-02-08 2020-02-08 Refill Leonardo [facility] 1.2.840.114 [id number] 00:00:00 00:00:00 Juan A Health [id number] [place] [id number] Professio [phone] [place] [address] Office Building One 2020-02-08 2020-02-08 Refill Teofilo, [facility] 1.2.840.114 [id number] Univers 00:00:00 00:00:00 Keshia A Health [id number] i ty [place] [id number] Fei as Professio [phone] [address] Office Building One 2020-02-08 2020-02-08 Refbrian [facility] 1.2.840.114 [id number] Univers 00:00:00 00:00:00 Juan A Health [id number] it y [place] [id number] Fei as Professio [phone] [address] Office Building One 2020-01-06 2020-01-06 Refbrian [facility] 1.2.840.114 [id number] 00:00:00 00:00:00 Juan A Health [id number] [place] [id number] Professio [phone] [place] [address] Office Building One 2020-01-06 2020-01-06 Refbrian LeonardoSH[facility]ROCK[facility] 1.2.840.114 [id number] Univers 00:00:00 00:00:00 Juan A Health [id number] it y of [place] [id number] Fei as Professio [phone] [address] Office Building One 2019-11-20 2019-11-20 Refill Teofilo, [facility] 1.2.840.114 [id number] 00:00:00 00:00:00 Keshia A Health [id number] [place] [id number] Professio [phone] [place] [address] Office Building One 2019-11-20 2019-11-20 Refill Teofilo, [facility] 1.2.840.114 [id number] Univers 00:00:00 00:00:00 Keshia A Health 350.1.13.10 i ty [place] [id number] Fei as Professio [phone] [address] Office Building One 2019-08-01 2019-08-01 Office Teofilo [facility] 1.2.840.114 [id number] 13:23:59 14:46:46 Visit Keshia You Health 350.1.13.10 [place] [id number] Professio [phone] nal [address] Office Building One 2019-08-01 2019-08-01 Office Teofilo [facility] 1.2.840.114 [id number] [facility] 13:23:59 14:46:46 Visit Keshia You Health 350.1.13.10 i ty of [place] [id number] Fei as Professio [phone] Me dical nal [address] Office Building One 2019-08-01 2019-08-01 Orders Doctor LAVON 1.2.840.114 [id number] Univers 00:00:00 00:00:00 Only Unassigned, RAZA [id number] ity of [place] [facility] [id number] Fei as [phone] [address] 2018-10-13 2018-10-13 Emergency ER FRAME, [facility] [id number] [place] 03:35:00 05:09:00 GOPI -[id number] [facility] 2017-03-18 2017-03-18 Outpatient Gisela Green [facility] [id number] [place] 09:55:00 09:55:00 -[id number] [facility] 2017-03-11 2017-03-11 Outpatient HAYDEN Young Gisela [facility] D000 [id number] [place] 09:27:00 09:27:00 -[id number] [facility] 2016-09-10 2016-09-10 Outpatient HAYDEN Young Alan [facility] [id number] [place] 14:49:00 14:49:00 -[id number] [facility] 2013-06-25 2013-06-26 Inpatient EL Faisal, [facility] [id number] [place] 09:54:00 15:55:00 Ender -[id number] [facility] 2013-06-22 2013-06-24 Inpatient EL Faisal, [facility] [id number] [place] 12:07:00 03:26:00 Ender -[id number] [facility] 2013-05-23 2013-05-23 Emergency ER Faisal, [facility] [id number] [place] 14:53:00 16:50:00 Ender De [id number] [facility] 2009-02-21 2009-02-22 Inpatient EL Faisal, [facility] [id number] [place] 04:49:00 16:30:00 Ender De [id number] [facility] 2008-10-10 2008-10-10 Inpatient ER Faisal, [facility] [id number] [place] 00:40:00 14:05:00 Ender De [id number] [facility] Results Test Description Test Time Test Comments Results Result Comments Source Glucose [Mass/volume] in Serum or Plasma --1 hour post dose 2022-11-11 09:22:00 glucose Test Item Value Reference Range Interpretation Comme nts Results (test code = Results) 179 [facility]dip[facility]) panel - [id number] 08:50:00 Test Item Value Reference Range Interpretation Comments Leukocytes (test code = Leukocytes) Negative Nitrite (test code = Nitrite) negative Urobilinogen (test code = .2 Urobilinogen) Protein (test code = Protein) 30 pH (test code = pH) 5.5 Blood (test code = Blood) Negative Specific [place] (test code = 1.030 Specific [place]) Ketone (test code = Ketone) Moderate Bilirubin (test code = Bilirubin) Negative Glucose (test code = Glucose) Negative Appearance (test code = Appearance) Clear Color (test code = Color) Yellow [facility] Center[facility] macro (dipstick) panel - [id number] 10:06:00 Test Item Value Reference Range Interpretation Comments Leukocytes (test code = Leukocytes) Negative Nitrite (test code = Nitrite) negative Urobilinogen (test code = .2 Urobilinogen) Protein (test code = Protein) Negative pH (test code = pH) 6.0 Blood (test code = Blood) Negative Specific [place] (test code = 1.030 Specific [place]) Ketone (test code = Ketone) Small Bilirubin (test code = Bilirubin) Negative Glucose (test code = Glucose) 1000 Appearance (test code = Appearance) Clear Color (test code = Color) Yellow [facility] Center[facility]inalysis macro (dipstick) panel - [id number] 09:00:26 Test Item Value Reference Range Interpretation Comments Leukocytes (test code = Leukocytes) Negative Nitrite (test code = Nitrite) negative Urobilinogen (test code = .2 Urobilinogen) Protein (test code = Protein) Negative pH (test code = pH) 5.5 Blood (test code = Blood) Negative Specific [place] (test code = 1.030 Specific [place]) Ketone (test code = Ketone) Negative Bilirubin (test code = Bilirubin) Negative Glucose (test code = Glucose) 100 Appearance (test code = Appearance) Clear Color (test code = Color) Yellow [facility] Center[facility]ysis macro (dipstick) panel - [id number] 09:00:26 Test Item Value Reference Range Interpretation Comments Leukocytes (test code = Leukocytes) Negative Nitrite (test code = Nitrite) negative Urobilinogen (test code = .2 Urobilinogen) Protein (test code = Protein) Negative pH (test code = pH) 5.5 Blood (test code = Blood) Negative Specific [place] (test code = 1.030 Specific [place]) Ketone (test code = Ketone) Negative Bilirubin (test code = Bilirubin) Negative Glucose (test code = Glucose) 100 Appearance (test code = Appearance) Clear Color (test code = Color) Yellow [facility] CenterChromosome 13+18+21+X+Y aneuploidy in Blood by Molecular genetics method [id number] 00:00:00 Test Item Value Reference Range Interpretation Comments report summary (test code low risk = report summary) report note (test code = see notes report note) trisomy 13 age-based risk 1/858 (0.12%) text (test code = trisomy 13 age-based risk text) trisomy 13 risk score text <1/10,000 (<0.01%) (test code = trisomy 13 risk score text) trisomy 13 result text low risk (test code = trisomy 13 result text) trisomy 18 age-based risk 1/272 (0.37%) text (test code = trisomy 18 age-based risk text) trisomy 18 risk score text <1/10,000 (<0.01%) (test code = trisomy 18 risk score text) trisomy 18 result text low risk (test code = trisomy 18 result text) trisomy 21 age-based risk 1/117 (0.85%) text (test code = trisomy 21 age-based risk text) trisomy 21 risk score text <1/10,000 (<0.01%) (test code = trisomy 21 risk score text) trisomy 21 result text low risk (test code = trisomy 21 result text) monosomy X age-based risk 1/255 (0.39%) text (test code = monosomy X age-based risk text) monosomy X risk score text <1/10,000 (<0.01%) (test code = monosomy X risk score text) monosomy X result text low risk (test code = monosomy X result text) triploidy result text low risk (test code = triploidy result text) gender of fetus (test code male = gender of fetus) fraction (test code 3.1% = fraction) footnotes (test code = see notes footnotes) [facility] CenterGenetic screen in Specimen by Molecular genetics method [id number] 00:00:00 Test Item Value Reference Range Interpretation Comments report summary (test code = report negative summary) alpha-thalassemia (test code = negative alpha-thalassemia) beta-hemoglobinopathies (test code negative = beta-hemoglobinopathies) geno disease (test code = negative geno disease) cystic fibrosis (test code = cystic negative fibrosis) duchenne/hogue muscular dystrophy negative (test code = duchenne/hogue muscular dystrophy) familial dysautonomia (test code = negative familial dysautonomia) fragile X syndrome (test code = negative fragile X syndrome) galactosemia (test code = negative galactosemia) gaucher disease (test code = negative gaucher disease) medium chain acyl-coa dehydrogenase negative deficiency (test code = medium chain acyl-coa dehydrogenase deficiency) polycystic kidney disease, negative autosomal recessive (test code = polycystic kidney disease, autosomal recessive) lotua-pygdx-umqya syndrome (test negative code = jrgbu-ppeyj-kgybx syndrome) spinal muscular atrophy (test code negative = spinal muscular atrophy) pietro-sachs disease (test code = negative pietro-sachs disease) panel notes (test code = panel see notes notes) report note (test code = report see notes note) footnotes (test code = footnotes) see notes [facility] GroupMicroscopic observation [Identifier] in Vaginal fluid by Wet [id number] 09:24:31 Test Item Value Reference Range Interpretation Comments Clue Cells (test code = Clue Cells) negative WBCs (test code = WBCs) negative Trichomonads (test code = negative Trichomonads) Epithelial cells (test code = normal Epithelial cells) RBCs (test code = RBCs) negative [facility] GroupMicroscopic observation [Identifier] in Vaginal fluid by Wet [id number] 09:24:31 Test Item Value Reference Range Interpretation Comments Clue Cells (test code = Clue Cells) negative WBCs (test code = WBCs) negative Trichomonads (test code = negative Trichomonads) Epithelial cells (test code = normal Epithelial cells) RBCs (test code = RBCs) negative [facility] GroupUrinalysis macro (dipstick) panel - [id number] 08:42:44 Test Item Value Reference Range Interpretation Comments Leukocytes (test code = Leukocytes) Negative Nitrite (test code = Nitrite) negative Urobilinogen (test code = .2 Urobilinogen) Protein (test code = Protein) Negative pH (test code = pH) 6.0 Blood (test code = Blood) Negative Specific [place] (test code = 1.030 Specific [place]) Ketone (test code = Ketone) Negative Bilirubin (test code = Bilirubin) Negative Glucose (test code = Glucose) Negative Appearance (test code = Appearance) Clear Color (test code = Color) Yellow [facility] CenterUrinalysis macro (dipstick) panel - [id number] 08:42:44 Test Item Value Reference Range Interpretation Comments Leukocytes (test code = Leukocytes) Negative Nitrite (test code = Nitrite) negative Urobilinogen (test code = .2 Urobilinogen) Protein (test code = Protein) Negative pH (test code = pH) 6.0 Blood (test code = Blood) Negative Specific [place] (test code = 1.030 Specific [place]) Ketone (test code = Ketone) Negative Bilirubin (test code = Bilirubin) Negative Glucose (test code = Glucose) Negative Appearance (test code = Appearance) Clear Color (test code = Color) Yellow [facility] Groupculture,urine pres id [id number] 08:45:00 Test Item Value Reference Range Interpretation Comments culture,urine (test scant skin louis code = culture,urine) present. pathogen not present at 2 days. [facility] CenterReagin Ab [Presence] in Serum by [id number] 13:57:00 Test Item Value Reference Range Interpretation Comments RPR (test code = RPR) nonreactive nonreactive [facility] CenterBacteria identified in Urine by [id number] 08:42:00 Test Item Value Reference Range Interpretation Comments culture,urine (test scant skin louis code = culture,urine) present. pathogen not present at 1 day. [facility] Centerpap, LB + reflex to HR HPV if [id number] 00:00:00 Test Item Value Reference Range Interpretation Comments TP reflex HPV ASCUS (test code = TP abnormal A reflex HPV ASCUS) HPV (test code = HPV) normal [facility] Centerchl/[id number] 19:34:00 Test Item Value Reference Range Interpretation Comments CT (test code = CT) CT not detected NG (test code = NG) NG not detected [facility] CenterRubella virus Ab [Titer] in [id number] 18:53:00 Test Item Value Reference Range Interpretation Comments rubella IgG (test code = rubella IgG) > 500 [facility] [Presence] in [id number] 18:20:00 Test Item Value Reference Range Interpretation Comments HIV P24 Ag (test code = HIV P24 non-reactive nonreactive Ag) HIV-1/2 Ab (test code = HIV-1/2 non-reactive nonreactive Ab) [facility]em[facility] A1[facility] [Mass/volume] in [id number] 18:04:00 Test Item Value Reference Range Interpretation Comments Hemoglobin A1c/Hemoglobin.total in 6.8 % 4.0-6.0 H Blood (test code = 4548-4) [facility]Microsc[facility] observation [Identifier] in Vaginal fluid by Wet [id number] 17:59:10 Test Item Value Reference Range Interpretation Comments Clue Cells (test code = Clue Cells) negative WBCs (test code = WBCs) negative Trichomonads (test code = negative Trichomonads) Epithelial cells (test code = normal Epithelial cells) RBCs (test code = RBCs) negative [facility] [Identifier] in Vaginal fluid by Wet [id number] 17:59:10 Test Item Value Reference Range Interpretation Comments Clue Cells (test code = Clue Cells) negative WBCs (test code = WBCs) negative Trichomonads (test code = negative Trichomonads) Epithelial cells (test code = normal Epithelial cells) RBCs (test code = RBCs) negative [facility]CB W Auto Differential panel - [id number] 17:53:00 Test Item Value Reference Range Interpretation Comments white blood count (test code = 8.4 K/uL 4.0-11.5 white blood count) red blood count (test code = red 4.57 M/uL 3.80-5.20 blood count) hemoglobin (test code = 13.2 g/dL 10.5-15.7 hemoglobin) hematocrit (test code = 41.1 % 34.0-50.0 hematocrit) mean corpuscular volume (test code 89.9 fL 86.0-100.0 = mean corpuscular volume) mean corpuscular hemoglobin (test 28.9 pg 26.2-33.4 code = mean corpuscular hemoglobin) mean corpuscular HGB conc (test 32.1 g/dL 30.0-34.0 code = mean corpuscular HGB conc) red cell distribution width (test 15.5 % 12.0-15.5 code = red cell distribution width) platelet count (test code = 277 K/uL 165-450 platelet count) mean platelet volume (test code = 10.0 fL 9.4-12.6 mean platelet volume) neutrophils % (test code = 70.6 % 44.4-80.1 neutrophils %) Ig% (test code = Ig%) 0.7 % 0.0-0.4 H lymphocyte% (test code = 21.8 % 10.0-50.0 lymphocyte%) mono % (test code = mono %) 5.8 % 3.6-12.0 eos % (test code = eos %) 0.7 % 0.0-5.4 basophil % (test code = basophil 0.4 % 0.1-1.2 %) absolute neutrophil count (test 5.94 K/uL 1.56-6.13 code = absolute neutrophil count) Ig# (test code = Ig#) 0.06 K/uL 0.00-0.03 H lymph # (test code = lymph #) 1.83 K/uL 1.18-3.74 mono # (test code = mono #) 0.49 K/uL 0.24-0.86 eos # (test code = eos #) 0.06 K/uL 0.04-0.36 basophil # (test code = basophil 0.03 K/uL 0.01-0.08 #) NRBC% (test code = NRBC%) 0 /100 WBC 0-0.2 NRBC# (test code = NRBC#) 0 K/uL [facility] and Rh group [Type] in [id number] 16:03:00 Test Item Value Reference Range Interpretation Comments blood type (test code = blood type) an ind pauline (test code = ind pauline) negative [facility] CenterUrinalysis macro (dipstick) panel - [id number] 15:21:00 Test Item Value Reference Range Interpretation Comments Leukocytes (test code = Leukocytes) Negative Nitrite (test code = Nitrite) negative Urobilinogen (test code = .2 Urobilinogen) Protein (test code = Protein) Negative pH (test code = pH) 5.5 Blood (test code = Blood) Negative Specific [place] (test code = 1.020 Specific [place]) Ketone (test code = Ketone) Small Bilirubin (test code = Bilirubin) Negative Glucose (test code = Glucose) 500 Appearance (test code = Appearance) Clear Color (test code = Color) Yellow [facility] CenterUrinalysis macro (dipstick) panel - [id number] 15:21:00 Test Item Value Reference Range Interpretation Comments Leukocytes (test code = Leukocytes) Negative Nitrite (test code = Nitrite) negative Urobilinogen (test code = .2 Urobilinogen) Protein (test code = Protein) Negative pH (test code = pH) 5.5 Blood (test code = Blood) Negative Specific [place] (test code = 1.020 Specific [place]) Ketone (test code = Ketone) Small Bilirubin (test code = Bilirubin) Negative Glucose (test code = Glucose) 500 Appearance (test code = Appearance) Clear Color (test code = Color) Yellow [facility] CenterUrinalysis macro (dipstick) panel - [id number] 15:21:00 Test Item Value Reference Range Interpretation Comments Leukocytes (test code = Leukocytes) Negative Nitrite (test code = Nitrite) negative Urobilinogen (test code = .2 Urobilinogen) Protein (test code = Protein) Negative pH (test code = pH) 5.5 Blood (test code = Blood) Negative Specific [place] (test code = 1.020 Specific [place]) Ketone (test code = Ketone) Small Bilirubin (test code = Bilirubin) Negative Glucose (test code = Glucose) 500 Appearance (test code = Appearance) Clear Color (test code = Color) Yellow [facility] CenterGlucose [Mass/volume] in Capillary [id number] 14:35:00 Test Item Value Reference Range Interpretation Comments GLU (test code = GLU) 211 [facility] Centerpregnancy test, [id number] 14:35:00 Test Item Value Reference Range Interpretation Comments Test (test code = positive Test) [facility] CenterGlucose [Mass/volume] in Capillary [id number] 14:35:00 Test Item Value Reference Range Interpretation Comments GLU (test code = GLU) 211 [facility] Centerpregnancy test, [id number] 14:35:00 Test Item Value Reference Range Interpretation Comments Test (test code = positive Test) [facility] CenterGlucose [Mass/volume] in Capillary [id number] 14:35:00 Test Item Value Reference Range Interpretation Comments GLU (test code = GLU) 211 [facility] Centerpregnancy test, [id number] 14:35:00 Test Item Value Reference Range Interpretation Comments Test (test code = positive Test) [facility]
[2022-11-14 19:20] LABS: Blood Gas Oxyhemoglobin 90.4 % (94-97); Blood O2 Saturation 95.7 % (92-98.5)
[2022-11-14 19:28] LABS: Absolute Lymphocytes (CBC) 1.4 K/uL (0.7-4.9); Hematocrit 33.1 % (36.0-45.0); Lymphocytes % 18.1 % (15.3-44.8); MCV 87.3 fL (80-100)
[2022-11-14] MEDS ORDERED: PANTOPRAZOLE 40 MG INJ ONE (19:31)
[2022-11-14] MEDS ORDERED: FENTANYL CITR 100 MCG/2 ML ONE (19:31)
[2022-11-14 19:46] LABS: Potassium 3.6 mEq/L (3.5-5.1); Troponin High Sensitivity 4.8 pg/mL (<58.9)
--- NOTE | 2022-11-14 19:51 | RAD REPORT ---
[facility] CLINICAL HISTORY: CHEST PAIN COMPARISON: Chest Single View dated 01/08/2020; Chest Single View dated 12/02/2017; Chest Single View dated 03/02/2017 TECHNIQUE: Portable AP view of the chest. FINDINGS: The lungs are clear. No pneumothorax or effusion. The cardiomediastinal contours are unre markable. IMPRESSION: No acute cardiopulmonary process.
[2022-11-14] MEDS ORDERED: LIDOCAINE VISCOUS 2% SOLN 15 ML UDC ONE (20:22)
[2022-11-14] MEDS ORDERED: MAGNES/ALUMIN/SIMET 30ML UCUP ONE (20:22)
--- NOTE | 2022-11-14 22:48 | ER ---
Nurse's Notes [facility] [place] Name: Ivet Valles Age: 37 yrs Sex: Female : 1985 Arrival Date: 11/14/2022 Time: 18:41 Bed 2 Private MD: Diagnosis: Chest pain, unspecified;Gastro-esophageal reflux disease without esophagitis Presentation: 11/14 18:56 Chief complaint: Patient states: CP that began today at 1800, stated midsternum that vg1 radiates to back and Left arm. Pt is also 21 weeks , denies any ABD pain/cramping or spotting. Coronavirus screen: Vaccine status: Patient reports receiving the 2nd dose of the covid vaccine. Client denies travel out of the [place] in the last 14 days. Ebola Screen: Patient negative for fever greater than or equal to 101.5 degrees Fahrenheit, and additional compatible Ebola Virus Disease symptoms Patient denies exposure to infectious person. Patient denies travel to an Ebola-affected area in the 21 days before illness onset. Initial Sepsis Screen: Does the patient meet any 2 criteria? HR > 90 bpm. Does the patient have a suspected source of infection? No. Patient's initial sepsis screen is negative. Risk Assessment: Do you want to hurt yourself or someone else? Patient reports no desire to harm self or others. Onset of symptoms was November 14, 2022. 18:56 Method Of Arrival: Ambulatory vg1 18:56 Acuity: REJI 2 vg1 Triage Assessment: 18:57 General: Appears uncomfortable, Behavior is crying. Pain: Complains of pain in chest vg1 Pain radiates to back and left arm Pain currently is 3 out of 10 on a pain scale. at worst was 8 out of 10 on a pain scale. Pain began 1 hour ago. Cardiovascular: Patient's skin is warm and dry. 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 - Social history:: Smoking status: Patient reports the use of cigarette tobacco products, 4/day. Screenin:57 [facility] ED Fall Risk Assessment (Adult) History of falling in the last 3 months, ld1 including since admission No falls in past 3 months (0 pts). Abuse screen: Denies threats or abuse. Denies injuries from another. Nutritional screening: No deficits noted. Tuberculosis screening: No symptoms or risk factors identified. Assessment: 18:57 General: Appears in no apparent distress. uncomfortable, Behavior is cooperative, ld1 appropriate for age, anxious. Pain: Complains of pain in chest Pain currently is 2 out of 10 on a pain scale. at worst was 8 out of 10 on a pain scale. Quality of pain is described as heavy, pressure, throbbing, Pain began suddenly, Is continuous. Neuro: Level of Consciousness is awake, alert, obeys commands, Oriented to person, place, time, situation. Cardiovascular: Capillary refill < 3 seconds Patient's skin is warm and dry. . Rhythm is sinus tachycardia. Respiratory: Airway is patent Respiratory effort is even, unlabored. GI: Abdomen is non-distended, . : No signs and/or symptoms were reported regarding the genitourinary system. EENT: No signs and/or symptoms were reported regarding the EENT system. Derm: No signs and/or symptoms reported regarding the dermatologic system. Musculoskeletal: No signs and/or symptoms reported regarding the musculoskeletal system. 20:08 Reassessment: Patient appears in no apparent distress at this time. pt resting with as6 eyes closed. Vital Signs: 18:56 BP 171 / 82; Pulse 95; Resp 18; Temp 98.2(TE); Pulse Ox 98% on R/A; Weight 115.67 kg; vg1 Height 5 ft. 3 in. ; Pain 3/10; 18:57 BP 145 / 85; Pulse 103; Resp 16; Pulse Ox 96% on R/A; Pain 2/10; ld1 19:13 BP 118 / 87; Pulse 89; Resp 13 S; Pulse Ox 97% on R/A; as6 20:08 BP 123 / 79; Pulse 90; Resp 21 S; Pulse Ox 94% on R/A; as6 20:56 BP 99 / 61; Pulse 93; Resp 18; Pulse Ox 98% ; rv 22:04 BP 104 / 44; Pulse 91; Resp 19; Pulse Ox 96% on R/A; rv 22:49 BP 108 / 71; Pulse 86; Resp 19 S; Pulse Ox 96% on R/A; as6 18:56 Body Mass Index 45.17 (115.67 kg, 160.02 cm) vg1 18:56 Pain Scale: Adult vg1 18:57 Pain Scale: Adult ld1 Landenberg Coma Score: 20:56 Eye Response: spontaneous(4). Motor Response: obeys commands(6). Verbal Response: rv oriented(5). Total: 15. ED Course: 18:42 Patient arrived in ED. rg4 18:57 Triage completed. vg1 18:57 Patient has correct armband on for positive identification. Placed in gown. Bed in low ld1 position. Call light in reach. Side rails up X2. monitoring analyst on. Pulse ox on. NIBP on. Door closed. Noise minimized. Warm blanket given. 18:57 Arm band placed on. EKG completed in triage. Results shown to MD. vg1 18:57 No provider procedures requiring assistance completed. Patient maintains SpO2 ld1 saturation greater than 95% on room air. 19:02 Rebekah Pierre FNP-C is [facility]. snw 19:02 Nile Pedroza MD is Attending Physician. snw 19:05 Saleem Bergman, SUNIL is Primary Nurse. as6 19:13 Inserted saline lock: 20 gauge in left antecubital area, using aseptic technique. Blood as6 collected. 19:41 XRAY Chest (1 view) In Process Unspecified. EDMS 23:07 IV discontinued, intact, bleeding controlled, No redness/swelling at site. Pressure as6 dressing applied. Administered Medications: 19:26 Drug: fentaNYL (PF) IVP 25 mcg Route: IVP; Site: left antecubital; as6 20:09 Follow up: Response: No adverse reaction as6 19:26 Drug: Pantoprazole IVP 40 mg Route: IVP; Site: left antecubital; as6 20:09 Follow up: Response: No adverse reaction as6 20:18 Drug: GI Cocktail without - (Maalox PO Suspension 30 ml, Lidocaine Mucous rv Membrane Liquid 2 % 15 ml) Route: PO; 22:04 Follow up: Response: No adverse reaction rv Medication: 19:13 VIS not applicable for this client. as6 Outcome: 22:47 Discharge ordered by MD. snw 23:06 Discharged to home ambulatory. as6 23:06 Condition: stable 23:06 Discharge instructions given to patient, Instructed on discharge instructions, follow up and referral plans. medication usage, Demonstrated understanding of instructions, follow-up care, medications, Prescriptions given X 1. 23:07 Patient left the ED. as6 Signatures: Dispatcher [employer] EDMS Rebekah Pierre, LABORATORY WORKER-C LABORATORY WORKER-Dot [place]re rg4 Arnold Chisholm, RN RN Sherin Knutson, RN RN vg1 Ana Green, RN RN ld1 Saleem Bergman, SUNIL RN as6
--- NOTE | 2022-11-14 22:48 | EDPHYS ---
Physician Documentation [facility] Name: Ivet Valles Age: 37 yrs Sex: Female : 1985 Arrival Date: 11/14/2022 Time: 18:41 Bed 2 Private MD: ED Physician Nile Pedroza HPI: 11/14 22:00 This 37 yrs old Female presents to ER via Ambulatory with complaints of Chest Pain, 21 snw Weeks . 22:00 The patient or guardian reports chest pain that is located primarily in the anterior snw chest wall, left. The pain radiates to the left arm, Associated signs and symptoms: Pertinent positives: shortness of breath. The chest pain is described as sharp. Duration: The patient or guardian reports multiple episodes, that wax and wane. Severity of pain: At its worst the pain was moderate severe. It is unknown whether or not the patient has had similar symptoms in the past. It is unknown whether or not the patient has recently seen a physician. 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 - Social history:: Smoking status: Patient reports the use of cigarette tobacco products, 4/day. ROS: 22:00 Constitutional: Negative for fever, chills, and weight loss, Eyes: Negative for injury, snw pain, redness, and discharge, ENT: Negative for injury, pain, and discharge, Neck: Negative for injury, pain, and swelling, Abdomen/GI: Negative for abdominal pain, nausea, vomiting, diarrhea, and constipation, Back: Negative for injury and pain, : Negative for injury, bleeding, discharge, and swelling, MS/Extremity: Negative for injury and deformity, Skin: Negative for injury, rash, and discoloration, Neuro: Negative for headache, weakness, numbness, tingling, and seizure, Psych: Negative for depression, anxiety, suicide ideation, homicidal ideation, and hallucinations. 22:00 Cardiovascular: Positive for chest pain, palpitations. 22:00 Respiratory: Positive for shortness of breath. Exam: 21:19 Special observations: pt sleeping with vitals signs stable. snw 22:02 Constitutional: This is a well developed, well nourished patient who is awake, alert, snw and in no acute distress. Head/Face: Normocephalic, atraumatic. Eyes: Pupils equal round and reactive to light, extra-ocular motions intact. Lids and lashes normal. Conjunctiva and sclera are non-icteric and not injected. Cornea within normal limits. Periorbital areas with no swelling, redness, or edema. ENT: Nares patent. No nasal discharge, no septal abnormalities noted. Tympanic membranes are normal and external auditory canals are clear. Oropharynx with no redness, swelling, or masses, exudates, or evidence of obstruction, uvula midline. Mucous membranes moist. Neck: Trachea midline, no thyromegaly or masses palpated, and no cervical lymphadenopathy. Supple, full range of motion without nuchal rigidity, or vertebral point tenderness. No Meningismus. Chest/axilla: Normal chest wall appearance and motion. Nontender with no deformity. No lesions are appreciated. 22:02 Back: No spinal tenderness. No costovertebral tenderness. Full range of motion. Skin: Warm, dry with normal turgor. Normal color with no rashes, no lesions, and no evidence of cellulitis. MS/ Extremity: Pulses equal, no cyanosis. Neurovascular intact. Full, normal range of motion. Neuro: Awake and alert, GCS 15, oriented to person, place, time, and situation. Cranial nerves II-XII grossly intact. Motor strength 5/5 in all extremities. Sensory grossly intact. Cerebellar exam normal. Normal gait. Psych: Awake, alert, with orientation to person, place and time. Behavior, mood, and affect are within normal limits. 22:02 Cardiovascular: Rate: tachycardic, Rhythm: irregular, Pulses: no pulse deficits are appreciated, Heart sounds: normal, Edema: is not appreciated. 22:02 Respiratory: the patient does not display signs of respiratory distress, Respirations: normal, Breath sounds: are clear throughout. 22:02 Abdomen/GI: Inspection: gravid appearance, is noted, Bowel sounds: normal, Palpation: abdomen is soft and non-tender. Vital Signs: 18:56 BP 171 / 82; Pulse 95; Resp 18; Temp 98.2(TE); Pulse Ox 98% on R/A; Weight 115.67 kg; vg1 Height 5 ft. 3 in. ; Pain 3/10; 18:57 BP 145 / 85; Pulse 103; Resp 16; Pulse Ox 96% on R/A; Pain 2/10; ld1 19:13 BP 118 / 87; Pulse 89; Resp 13 S; Pulse Ox 97% on R/A; as6 20:08 BP 123 / 79; Pulse 90; Resp 21 S; Pulse Ox 94% on R/A; as6 20:56 BP 99 / 61; Pulse 93; Resp 18; Pulse Ox 98% ; rv 22:04 BP 104 / 44; Pulse 91; Resp 19; Pulse Ox 96% on R/A; rv 22:49 BP 108 / 71; Pulse 86; Resp 19 S; Pulse Ox 96% on R/A; as6 18:56 Body Mass Index 45.17 (115.67 kg, 160.02 cm) vg1 18:56 Pain Scale: Adult vg1 18:57 Pain Scale: Adult ld1 Vanessa Coma Score: 20:56 Eye Response: spontaneous(4). Motor Response: obeys commands(6). Verbal Response: rv oriented(5). Total: 15. MDM: 19:04 Patient medically screened. snw 22:48 Differential diagnosis: abnormal EKG, acute myocardial infarction, acute pericarditis, snw anxiety, coronary artery disease gastritis, gastroesophageal reflux disease (GERD), pancreatitis, stable angina. Data reviewed: vital signs, nurses notes, lab test result(s), EKG, radiologic studies. I considered the following discharge prescriptions or medication management in the emergency department Medications were administered in the Emergency Department. See MAR. Counseling: I had a detailed discussion with the patient and/or guardian regarding: the historical points, exam findings, and any diagnostic results supporting the discharge/admit diagnosis, lab results, radiology results, the need for outpatient follow up, for definitive care, to return to the emergency department if symptoms worsen or persist or if there are any questions or concerns that arise at home. Response to treatment: the patient's symptoms have markedly improved after treatment. Special discussion: Based on the patient's history, exam, and Dx evaluation, there is no indication for emergent intervention or inpatient Tx. It is understood by the patient/guardian that if the Sx's persist or worsen they need to return immediately for re-evaluation. Based on the history and exam findings, there is no indication for further emergent testing or inpatient evaluation. I discussed with the patient/guardian the need to see the primary care provider for further evaluation of the symptoms. 11/14 18:57 Order name: Basic Metabolic Panel; Complete Time: 19:47 ld1 11/14 18:57 Order name: CBC with Diff; Complete Time: 19:32 ld1 11/14 18:57 Order name: Troponin HS; Complete Time: 19:47 ld1 11/14 19:05 Order name: ABG; Complete Time: 19:28 snw 11/14 19:28 Order name: Ferritin; Complete Time: 20:10 snw 11/14 18:57 Order name: XRAY Chest (1 view); Complete Time: 19:55 ld1 11/14 18:57 Order name: EKG; Complete Time: 18:58 ld1 11/14 18:57 Order name: Cardiac monitoring; Complete Time: 18:57 ld1 11/14 18:57 Order name: EKG - Nurse/Tech; Complete Time: 18:57 ld11/14 18:57 Order name: IV Saline Lock; Complete Time: 19:13 ld1 11/14 18:57 Order name: Labs collected and sent; Complete Time: 19:13 ld11/14 18:57 Order name: O2 Per Protocol; Complete Time: 18:57 ld11/14 18:57 Order name: O2 Sat Monitoring; Complete Time: 18:57 ld1 Administered Medications: 19:26 Drug: fentaNYL (PF) IVP 25 mcg Route: IVP; Site: left antecubital; as6 20:09 Follow up: Response: No adverse reaction as6 19:26 Drug: Pantoprazole IVP 40 mg Route: IVP; Site: left antecubital; as6 20:09 Follow up: Response: No adverse reaction as6 20:18 Drug: GI Cocktail without - (Maalox PO Suspension 30 ml, Lidocaine Mucous rv Membrane Liquid 2 % 15 ml) Route: PO; 22:04 Follow up: Response: No adverse reaction rv Disposition Summary: 11/14/22 22:47 Discharge Ordered Location: Home snw Condition: Stable snw Diagnosis - Chest pain, unspecified snw - Gastro-esophageal reflux disease without esophagitis snw Followup: snw - With: Emergency Department - When: As needed - Reason: Worsening of condition Followup: snw - With: Private Physician - When: 1 - 2 days - Reason: Recheck today's complaints, Continuance of care, Re-evaluation by your physician Discharge Instructions: - Discharge Summary Sheet snw - Nonspecific Chest Pain, Adult snw - Food Choices for Gastroesophageal Reflux Disease, Adult snw - Indigestion snw - Heartburn During snw - Steps to Quit Smoking snw - Health Risks of Smoking snw - and Smoking snw - and Smoking snw Forms: - Work release form snw - Medication Reconciliation Form snw - Thank You Letter snw - Antibiotic Education snw - Prescription Opioid Use snw Prescriptions: - Pepcid 20 mg Oral Tablet - take 1 tablet by ORAL route once daily; 20 tablet; Refills: 0, Product snw Selection Permitted Signatures: Dispatcher [employer] EDMS Rebekah Pierre, DISPENSING AND MEASURING OPTICIAN-C DISPENSING AND MEASURING OPTICIAN-Csnw Arnold Chisholm, RN RN Sherin Knutson RN RN vg1 Ana Green RN RN ld1 Saleem Bergman, RN RN as6
[2022-11-14 23:30] VITALS: TEMP 98.2
[2022-11-14 23:50] VITALS: O2SAT 96
[2022-11-14 23:51] VITALS: BP 108/71
--- NOTE | 2022-11-15 10:15 | EKG ---
Test Date: 2022-11-14 Test Time: 18:54:39 Pediatric Dentist: [facility]LA[facility] MEASUREMENT RESULTS: Intervals: Rate: 94 CO: 152 QRSD: 80 QT: 342 QTc: 427 [place]: P: 58 CO: 152 QRS: 26 T: 31 INTERPRETIVE STATEMENTS: Normal sinus rhythm with sinus arrhythmia Low voltage QRS Septal infarct, age undetermined Abnormal ECG Compared to ECG 07/24/2022 21:25:10 Low QRS voltage now present Myocardial infarct finding still present Electronically Signed On 11-15-22 10:13:36 CDT by Emmett Quiroz
== END 2022-11-14 23:07 | disposition home or self-care (01) ==
LOC: ER 18:41
DX: O99.612 Diseases of the digestive system complicating pregnancy, second trimester (principal); K21.9 Gastro-esophageal reflux disease without esophagitis; O99.332 Smoking (tobacco) complicating pregnancy, second trimester; F17.210 Nicotine dependence, cigarettes, uncomplicated; Z3A.21 21 weeks gestation of pregnancy; Z88.3 Allergy status to other anti-infective agents; Z91.018 Allergy to other foods; Z91.040 Latex allergy status; Z91.048 Other nonmedicinal substance allergy status
CPT/HCPCS: 93005; 85025; 80048; 36415; 84484; 82728; 71045; 82805; 96375; 96374; 99285; C9113; J3010

== ENCOUNTER 2024-05-30 23:11 | Emergency (ER) | payer BC ==
[2024-05-30] MEDS ORDERED: FAMOTIDINE 20 MG/2 ML VIAL IV ONE (23:15)
[2024-05-30] MEDS ORDERED: NA CHLORIDE 0.9% 1,000 ML ONE (23:15)
[2024-05-30] MEDS ORDERED: ALBUTEROL 2.5 MG/3 ML NEB SOL ONE (23:15)
--- OUTSIDE RECORDS SUMMARY | 2024-05-30 23:16 | XMS REPORT | Continuity of Care Document ---
Author Name Unknown Address [address] [facility] [address] [place] [address] [facility] thconnect Address [address] [facility] [address] [place] [address] Care Team Providers Care Compensation Vice President Name Role Phone PCP, PATIENT DOES NOT HAVE A Primary Care Physic cordelia Unavailable ENDER MALONE Attending Clinician Unavailabl e Jose Attending Clinician Unavailable THOMAS MONTANO Attending Clinician Unavailable Thomas Montano MD Attending Clinician Doctor Unassigned, [place] Attending Clinician U GARCIA Freeman Attending Clinician Unavaila clark Mayo Attending Clinician Unavailable LOLITA COLEMAN Attending Clinician Unavailable Kerrie Kaur Attending Clinician [phone] Lolita Coleman MD Attending Clinician [phone] Ann-Marie REGULATORY SCIENTIST, Sophia Attending Clinician [phone] TIA TEJEDA Attending Clinician Unavailable Paul REGULATORY SCIENTIST, Tia Attending Clinician [phone] Unknown, Attending Attending Clinician Unavailab le UNKNOWN, ATTENDING Attending Clinician Unavailab RENEE Curry Attending Clinician Unavailable ARNIE MOSHER Attending Clinician Unavailable Keshia Rosenberg Attending Clinician [phone] Tesfaye De La O DO Attending Clinician [phone] Juan A Leonardo MD Attending Clinician [phone] GOPI DOMINGUEZ Attending Clinician Unavailable GISELA YOUNG Attending Clinician Unavailable THOMAS MONTANO Admitting Clinician Unavailable G_Pappakrzysztof Admitting Clinician Unavailable ENDER MALONE Admitting Clinician Unavailshira Montano MD, Thomas Gonzales Admitting Clinician [phone] Avelino_Steven Admitting Clinician Unavailable Payers Payer Name Policy Type Policy Number Effective Date Expirati on Date Source [employer] OUT OF NETWORK [id number] 2020 00:00:00 [place] [id number] 2021 00:00:00 [place] [id number] 2021 00:00:00 [facility] BENEFITS MANAGEMENT [id number] 2020 00:00:00 [employer] [id number] 2016 00:00:00 Problems Condition Name Condition Details Condition Category Status Onset Date Resolution Date Last Treatment Date Treating Clinician Comments Source Sterilizat ion requested Sterilizat ion Requested Problem Active 2022-06 00:00: 00 [facility] Superficia l dehiscence of wound Superficia l Dehiscence of Wound Problem Active 2022-06 00:00: 00 [facility] History of 5 miscarriag es History of 5 Miscarriag es Problem Active 2022-06 00:00: 00 [facility] Blood group A Rh(D) negative Blood Group a Rh(D) Negative Problem Active 7-19 00:00: 00 [facility] RhD negative RhD Negative Problem Active 5-03 00:00: 00 [facility] Protein C deficiency disease Protein C Deficiency Disease Problem Active 4-12 00:00: 00 [facility] Hypoplasmi nogenemia Hypoplasmi nogenemia Problem Active 2 00:00: 00 [facility] Depressive disorder Depressive Disorder Problem Active 08-09 00:00: 00 [facility] History of pre-eclamp darren History of Pre-eclamp darren Problem Active 08-09 00:00: 00 [facility] Maternal history of gestationa l diabetes Maternal History of Gestationa l Diabetes Problem Active 08-09 00:00: 00 [facility] Body mass index 40+ - severely obese Body Mass Index 40+ - Severely Obese Problem Active 418 00:00: 00 [facility] Benign essential hypertensi on Benign Essential Hypertensi on Problem Active 03-04 00:00: 00 [facility] Nicotine dependence Nicotine Dependence Problem Active 3-31 00:00: 00 [facility] Polycystic ovaries Polycystic Ovaries Problem Active 2-10 00:00: 00 [facility] Blood coagulatio n disorder Blood Coagulatio n Disorder Problem Active 01-05 00:00: 00 [facility] Anxiety Anxiety Problem Active 01-05 00:00: 00 [facility] Essential hypertensi on Essential Hypertensi on Problem Active 01-05 00:00: 00 [facility] Obesity Obesity Problem Active [facility] Allergies, Adverse Reactions, Alerts Allergy Name Allergy Type Status Severity Reaction(s) Onset Date Inactive Date Treating Clinician Comments Source Clindamy mike Allergy to substanc e Active 01-05 00:00: 00 [facility] CLINDAMY MIKE DRUG INGREDI Active Unknown-Cmnt 01-05 00:00: 00 [facility] ERYTHROM YCIN DRUG Active Unknown-Cmnt 01-05 00:00: 00 [facility] LATEX DRUG INGREDI Active Rash 01-05 00:00: 00 [facility] Clindamy mike Propensi ty to adverse reaction s Active Unknown - See comments 01-05 00:00: 00 [facility] Erythrom ycin Propensi ty to adverse reaction s Active Unknown - See comments 01-05 00:00: 00 [facility] Latex Propensi ty to adverse reaction s Active Rash 01-05 00:00: 00 [facility] Latex Allergy to substanc e Active 06-22 00:00: 00 [facility] Social History Social Habit Start Date Stop Date Quantity Comments Source ASSERTION 2022-07-02 00:00:00 [facility] History SDOH Alcohol Frequency [facility] History SDOH Alcohol Std Drinks [facility] History SDOH Alcohol Binge [facility] Exposure to SARS-CoV-2 (event) Not sure [facility] Gender identity [facility] History of tobacco use Cigarette Smoker [facility] Alcohol intake 2023-02-06 00:00:00 2023-02-06 00:00:00 Current drinker of alcohol (finding) [facility] History of Social function 2018-12-21 00:00:00 2018-12-21 00:00:00 [facility] Alcohol Comment 2016-01-06 00:00:00 2016-01-06 00:00:00 occasional [facility] Tobacco use and exposure 2016-01-06 00:00:00 2016-01-06 00:00:00 Smokeless tobacco non-user [facility] Cigarettes smoked current (pack per day) - Reported 2016-01-06 00:00:00 2016-01-06 00:00:00 [facility] Cigarette pack-years 2016-01-06 00:00:00 2016-01-06 00:00:00 [facility] Sex Assigned At 1985 00:00:00 1985 00:00:00 [facility] Smoking Status Start Date Stop Date Source Light Tobacco Smoker [facility] Smokes tobacco daily 2016-01-06 00:00:00 [facility] Medications Ordered Medication Name Filled Medication Name Start Date Stop Date Current Medication? Ordering Clinician Indication Dosage Frequency Signature (SIG) Comments Components Source aspirin (ASPIRIN LOW DOSE) 81 mg EC tablet 02-06 23:29: 49 Yes 81mg Take 81 mg by mouth daily. [facility] lisinopril- hydrochloro thiazide 20-12.5 mg per tablet 02-06 23:29: 49 Yes [id number] 1{tbl} Take 1 tablet by mouth every morning. [facility] methylPREDN ISolone acetate (DEPO-MEDRO L) injection 80 mg 2020-06 03:30: 00 06-10 02:26 :00 No [id number] 80mg [facility] albuterol (VENTOLIN) inhaler 2 Puff 2020-06 02:16: 00 06-10 02:26 :00 No [id number] 2{puff} [facility] ampicillin 500 mg capsule 2020-06 00:00: 00 06-15 05:59 :00 No [id number] 500mg Take 1 capsule by mouth every 6 (six) hours for [address] [facility] Nitrofurant oin&Nit. Macrocryst (MACROBID) 100 mg capsule 2020-06 00:00: 00 06-12 05:59 :00 No [id number] 100mg Take 1 capsule by mouth 2 (two) times daily for [address] [facility] aspirin (ASPIRIN LOW DOSE) 81 mg EC tablet 08-01 13:43: 13 Yes 81mg Take 81 mg by mouth daily. [facility] lisinopril- hydrochloro thiazide 20-12.5 mg per tablet 08-01 13:43: 13 Yes [id number] 1{tbl} Take 1 tablet by mouth every morning. [facility] buPROPion SR (WELLBUTRIN SR) 150 mg SR tablet 16 00:00: 00 Yes [id number] Start 1 tab PO daily x 3 days, then increase to 1 tab PO BID. [facility] amoxicillin 875 mg-potassiu m clavulanate 125 mg tablet TAKE 1 TABLET BY MOUTH TWICE DAILY amoxicillin 875 mg-potassiu m clavulanate 125 mg tablet TAKE 1 TABLET BY MOUTH TWICE DAILY No amoxicilli n 875 mg-potassi um clavulanat e 125 mg tablet TAKE 1 TABLET BY MOUTH TWICE DAILY [facility] ciprofloxac in 500 mg tablet TAKE 1 TABLET BY MOUTH TWICE DAILY ciprofloxac in 500 mg tablet TAKE 1 TABLET BY MOUTH TWICE DAILY No ciprofloxa mike 500 mg tablet TAKE 1 TABLET BY MOUTH TWICE DAILY [facility] Cortisporin -TC 3.3 mg-3 mg-10 mg-0.5 mg/mL ear drops,suspe nsion INSTILL 1 DROP INTO AFFECTED EAR(S) EVERY 4 HOURS Cortisporin -TC 3.3 mg-3 mg-10 mg-0.5 mg/mL ear drops,suspe nsion INSTILL 1 DROP INTO AFFECTED EAR(S) EVERY 4 HOURS No Cortispori n-TC 3.3 mg-3 mg-10 mg-0.5 mg/mL ear drops,susp ension INSTILL 1 DROP INTO AFFECTED EAR(S) EVERY 4 HOURS [facility] lisinopril 10 mg-hydrochl orothiazide 12.5 mg tablet TAKE 1 TABLET BY MOUTH ONCE DAILY FOR BLOOD PRESSURE lisinopril 10 mg-hydrochl orothiazide 12.5 mg tablet TAKE 1 TABLET BY MOUTH ONCE DAILY FOR BLOOD PRESSURE No lisinopril 10 mg-hydroch lorothiazi de 12.5 mg tablet TAKE 1 TABLET BY MOUTH ONCE DAILY FOR BLOOD PRESSURE [facility] metformin 500 mg tablet Take 1 tablet twice a day by oral route. metformin 500 mg tablet Take 1 tablet twice a day by oral route. No 1 BID metformin 500 mg tablet Take 1 tablet twice a day by oral route. [facility] methylpredn isolone 4 mg tablets in a dose pack TAKE DIRECTED methylpredn isolone 4 mg tablets in a dose pack TAKE DIRECTED No methylpred nisolone 4 mg tablets in a dose pack TAKE DIRECTED [facility] phenazopyri dine 200 mg tablet phenazopyri dine 200 mg tablet No phenazopyr idine 200 mg tablet [facility] Prescriptio n - Prior Authorizati on Request Prescriptio n - Prior Authorizati on Request No Prescripti on - Prior Authorizat ion Request [facility] progesteron e micronized 200 mg capsule Take 1 capsule twice a day by oral route. progesteron e micronized 200 mg capsule Take 1 capsule twice a day by oral route. No 1capsul e(s) BID progestero ne micronized 200 mg capsule Take 1 capsule twice a day by oral route. [facility] ciprofloxac in 500 mg tablet TAKE 1 TABLET BY MOUTH TWICE DAILY ciprofloxac in 500 mg tablet TAKE 1 TABLET BY MOUTH TWICE DAILY No ciprofloxa mike 500 mg tablet TAKE 1 TABLET BY MOUTH TWICE DAILY [facility] Diflucan 200 mg tablet Take 1 tablet every day by oral route for 3 days. Diflucan 200 mg tablet Take 1 tablet every day by oral route for 3 days. No 1 Q1D Diflucan 200 mg tablet Take 1 tablet every day by oral route for 3 days. [facility] enoxaparin 40 mg/0.4 mL subcutaneou s syringe INJECT 40MG SUBCUTANEOU S DAILY enoxaparin 40 mg/0.4 mL subcutaneou s syringe INJECT 40MG SUBCUTANEOU S DAILY No enoxaparin 40 mg/0.4 mL subcutaneo us syringe INJECT 40MG SUBCUTANEO US DAILY [facility] metformin 500 mg tablet Take 1 tablet twice a day by oral route. metformin 500 mg tablet Take 1 tablet twice a day by oral route. No 1 BID metformin 500 mg tablet Take 1 tablet twice a day by oral route. [facility] progesteron e micronized 200 mg capsule Take 1 capsule twice a day by oral route. progesteron e micronized 200 mg capsule Take 1 capsule twice a day by oral route. No 1capsul e(s) BID progestero ne micronized 200 mg capsule Take 1 capsule twice a day by oral route. [facility] lisinopril 10 mg-hydrochl orothiazide 12.5 mg tablet Take 1 tablet every day by oral route. lisinopril 10 mg-hydrochl orothiazide 12.5 mg tablet Take 1 tablet every day by oral route. No 1 Q1D lisinopril 10 mg-hydroch lorothiazi de 12.5 mg tablet Take 1 tablet every day by oral route. [facility] metformin 500 mg tablet Take 1 tablet twice a day by oral route. metformin 500 mg tablet Take 1 tablet twice a day by oral route. No 1 BID metformin 500 mg tablet Take 1 tablet twice a day by oral route. [facility] enoxaparin 40 mg/0.4 mL subcutaneou s syringe INJECT 40MG SUBCUTANEOU S DAILY enoxaparin 40 mg/0.4 mL subcutaneou s syringe INJECT 40MG SUBCUTANEOU S DAILY No enoxaparin 40 mg/0.4 mL subcutaneo us syringe INJECT 40MG SUBCUTANEO US DAILY [facility] omeprazole 40 mg capsule,del ayed release Take 1 capsule every day by oral route. omeprazole 40 mg capsule,del ayed release Take 1 capsule every day by oral route. No 1capsul e(s) Q1D omeprazole 40 mg capsule,de layed release Take 1 capsule every day by oral route. [facility] Wellbutrin SR 150 mg tablet, 12 hr sustained-r elease Take 1 tablet twice a day by oral route. Wellbutrin SR 150 mg tablet, 12 hr sustained-r elease Take 1 tablet twice a day by oral route. No 1 BID Wellbutrin SR 150 mg tablet, 12 hr sustained- release Take 1 tablet twice a day by oral route. [facility] progesteron e micronized 200 mg capsule Take 1 capsule twice a day by oral route. progesteron e micronized 200 mg capsule Take 1 capsule twice a day by oral route. No progestero ne micronized 200 mg capsule Take 1 capsule twice a day by oral route. [facility] Reglan 10 mg tablet Take 1 tablet 4 times a day by oral route as directed for 30 days. Reglan 10 mg tablet Take 1 tablet 4 times a day by oral route as directed for 30 days. No 1 QID Reglan 10 mg tablet Take 1 tablet 4 times a day by oral route as directed for 30 days. [facility] enoxaparin 40 mg/0.4 mL subcutaneou s syringe INJECT 40MG SUBCUTANEOU S DAILY enoxaparin 40 mg/0.4 mL subcutaneou s syringe INJECT 40MG SUBCUTANEOU S DAILY No enoxaparin 40 mg/0.4 mL subcutaneo us syringe INJECT 40MG SUBCUTANEO US DAILY [facility] metoclopram alma rosa 10 mg tablet TAKE 1 TABLET BY MOUTH FOUR TIMES DAILY DIRECTED metoclopram alma rosa 10 mg tablet TAKE 1 TABLET BY MOUTH FOUR TIMES DAILY DIRECTED No metoclopra mide 10 mg tablet TAKE 1 TABLET BY MOUTH FOUR TIMES DAILY DIRECTED [facility] omeprazole 40 mg capsule,del ayed release TAKE 1 CAPSULE BY MOUTH EVERY DAY omeprazole 40 mg capsule,del ayed release TAKE 1 CAPSULE BY MOUTH EVERY DAY No omeprazole 40 mg capsule,de layed release TAKE 1 CAPSULE BY MOUTH EVERY DAY [facility] progesteron e micronized 200 mg capsule TAKE 1 CAPSULE BY MOUTH TWICE DAILY progesteron e micronized 200 mg capsule TAKE 1 CAPSULE BY MOUTH TWICE DAILY No progestero ne micronized 200 mg capsule TAKE 1 CAPSULE BY MOUTH TWICE DAILY [facility] bupropion HCl XL 300 mg 24 hr tablet, extended release TAKE 1 TABLET BY MOUTH EVERY DAY bupropion HCl XL 300 mg 24 hr tablet, extended release TAKE 1 TABLET BY MOUTH EVERY DAY No bupropion HCl XL 300 mg 24 hr tablet, extended release TAKE 1 TABLET BY MOUTH EVERY DAY [facility] enoxaparin 40 mg/0.4 mL subcutaneou s syringe INJECT 40MG SUBCUTANEOU S DAILY enoxaparin 40 mg/0.4 mL subcutaneou s syringe INJECT 40MG SUBCUTANEOU S DAILY No enoxaparin 40 mg/0.4 mL subcutaneo us syringe INJECT 40MG SUBCUTANEO US DAILY [facility] ferrous gluconate 240 mg (27 mg iron) tablet Take 1 tablet every day by oral route. ferrous gluconate 240 mg (27 mg iron) tablet Take 1 tablet every day by oral route. No 1 Q1D ferrous gluconate 240 mg (27 mg iron) tablet Take 1 tablet every day by oral route. [facility] metoclopram alma rosa 10 mg tablet TAKE 1 TABLET BY MOUTH FOUR TIMES DAILY DIRECTED metoclopram alma rosa 10 mg tablet TAKE 1 TABLET BY MOUTH FOUR TIMES DAILY DIRECTED No metoclopra mide 10 mg tablet TAKE 1 TABLET BY MOUTH FOUR TIMES DAILY DIRECTED [facility] omeprazole 40 mg capsule,del ayed release TAKE 1 CAPSULE BY MOUTH EVERY DAY omeprazole 40 mg capsule,del ayed release TAKE 1 CAPSULE BY MOUTH EVERY DAY No omeprazole 40 mg capsule,de layed release TAKE 1 CAPSULE BY MOUTH EVERY DAY [facility] progesteron e micronized 200 mg capsule TAKE 1 CAPSULE BY MOUTH TWICE DAILY progesteron e micronized 200 mg capsule TAKE 1 CAPSULE BY MOUTH TWICE DAILY No progestero ne micronized 200 mg capsule TAKE 1 CAPSULE BY MOUTH TWICE DAILY [facility] bupropion HCl XL 300 mg 24 hr tablet, extended release TAKE 1 TABLET BY MOUTH EVERY DAY bupropion HCl XL 300 mg 24 hr tablet, extended release TAKE 1 TABLET BY MOUTH EVERY DAY No bupropion HCl XL 300 mg 24 hr tablet, extended release TAKE 1 TABLET BY MOUTH EVERY DAY [facility] enoxaparin 40 mg/0.4 mL subcutaneou s syringe INJECT 40MG SUBCUTANEOU S DAILY enoxaparin 40 mg/0.4 mL subcutaneou s syringe INJECT 40MG SUBCUTANEOU S DAILY No enoxaparin 40 mg/0.4 mL subcutaneo us syringe INJECT 40MG SUBCUTANEO US DAILY [facility] ferrous gluconate 240 mg (27 mg iron) tablet Take 1 tablet every day by oral route. ferrous gluconate 240 mg (27 mg iron) tablet Take 1 tablet every day by oral route. No 1 Q1D ferrous gluconate 240 mg (27 mg iron) tablet Take 1 tablet every day by oral route. [facility] metoclopram alma rosa 10 mg tablet TAKE 1 TABLET BY MOUTH FOUR TIMES DAILY DIRECTED metoclopram alma rosa 10 mg tablet TAKE 1 TABLET BY MOUTH FOUR TIMES DAILY DIRECTED No metoclopra mide 10 mg tablet TAKE 1 TABLET BY MOUTH FOUR TIMES DAILY DIRECTED [facility] omeprazole 40 mg capsule,del ayed release TAKE 1 CAPSULE BY MOUTH EVERY DAY omeprazole 40 mg capsule,del ayed release TAKE 1 CAPSULE BY MOUTH EVERY DAY No omeprazole 40 mg capsule,de layed release TAKE 1 CAPSULE BY MOUTH EVERY DAY [facility] OneTouch Delica Plus Lancet 33 gauge TEST FOUR TIMES DAILY OneTouch Delica Plus Lancet 33 gauge TEST FOUR TIMES DAILY No OneTouch Delica Plus Lancet 33 gauge TEST FOUR TIMES DAILY [facility] OneTouch Ultra Test strips TEST FOUR TIMES DAILY OneTouch Ultra Test strips TEST FOUR TIMES DAILY No OneTouch Ultra Test strips TEST FOUR TIMES DAILY [facility] OneTouch Ultra2 Meter TEST FOUR TIMES DAILY OneTouch Ultra2 Meter TEST FOUR TIMES DAILY No OneTouch Ultra2 Meter TEST FOUR TIMES DAILY [facility] progesteron e micronized 200 mg capsule TAKE 1 CAPSULE BY MOUTH TWICE DAILY progesteron e micronized 200 mg capsule TAKE 1 CAPSULE BY MOUTH TWICE DAILY No progestero ne micronized 200 mg capsule TAKE 1 CAPSULE BY MOUTH TWICE DAILY [facility] bupropion HCl XL 300 mg 24 hr tablet, extended release TAKE 1 TABLET BY MOUTH EVERY DAY bupropion HCl XL 300 mg 24 hr tablet, extended release TAKE 1 TABLET BY MOUTH EVERY DAY No bupropion HCl XL 300 mg 24 hr tablet, extended release TAKE 1 TABLET BY MOUTH EVERY DAY [facility] enoxaparin 40 mg/0.4 mL subcutaneou s syringe INJECT 40MG SUBCUTANEOU S DAILY enoxaparin 40 mg/0.4 mL subcutaneou s syringe INJECT 40MG SUBCUTANEOU S DAILY No enoxaparin 40 mg/0.4 mL subcutaneo us syringe INJECT 40MG SUBCUTANEO US DAILY [facility] ferrous gluconate 240 mg (27 mg iron) tablet Take 1 tablet every day by oral route. ferrous gluconate 240 mg (27 mg iron) tablet Take 1 tablet every day by oral route. No 1 Q1D ferrous gluconate 240 mg (27 mg iron) tablet Take 1 tablet every day by oral route. [facility] omeprazole 40 mg capsule,del ayed release TAKE 1 CAPSULE BY MOUTH EVERY DAY omeprazole 40 mg capsule,del ayed release TAKE 1 CAPSULE BY MOUTH EVERY DAY No omeprazole 40 mg capsule,de layed release TAKE 1 CAPSULE BY MOUTH EVERY DAY [facility] OneTouch Delica Plus Lancet 33 gauge TEST FOUR TIMES DAILY OneTouch Delica Plus Lancet 33 gauge TEST FOUR TIMES DAILY No OneTouch Delica Plus Lancet 33 gauge TEST FOUR TIMES DAILY [facility] OneTouch Ultra Test strips TEST FOUR TIMES DAILY OneTouch Ultra Test strips TEST FOUR TIMES DAILY No OneTouch Ultra Test strips TEST FOUR TIMES DAILY [facility] OneTouch Ultra2 Meter TEST FOUR TIMES DAILY OneTouch Ultra2 Meter TEST FOUR TIMES DAILY No OneTouch Ultra2 Meter TEST FOUR TIMES DAILY [facility] RhoGAM Ultra-Filte red PLUS 1,500 unit (300 mcg) intramuscul ar syringe Inject 1 syringe by intramuscul ar route. RhoGAM Ultra-Filte red PLUS 1,500 unit (300 mcg) intramuscul ar syringe Inject 1 syringe by intramuscul ar route. No 1syring e(s) RhoGAM Ultra-Filt ered PLUS 1,500 unit (300 mcg) intramuscu lar syringe Inject 1 syringe by intramuscu lar route. [facility] bupropion HCl XL 300 mg 24 hr tablet, extended release TAKE 1 TABLET BY MOUTH EVERY DAY bupropion HCl XL 300 mg 24 hr tablet, extended release TAKE 1 TABLET BY MOUTH EVERY DAY No bupropion HCl XL 300 mg 24 hr tablet, extended release TAKE 1 TABLET BY MOUTH EVERY DAY [facility] enoxaparin 40 mg/0.4 mL subcutaneou s syringe INJECT 40MG SUBCUTANEOU S DAILY enoxaparin 40 mg/0.4 mL subcutaneou s syringe INJECT 40MG SUBCUTANEOU S DAILY No enoxaparin 40 mg/0.4 mL subcutaneo us syringe INJECT 40MG SUBCUTANEO US DAILY [facility] ferrous gluconate 240 mg (27 mg iron) tablet Take 1 tablet every day by oral route. ferrous gluconate 240 mg (27 mg iron) tablet Take 1 tablet every day by oral route. No 1 Q1D ferrous gluconate 240 mg (27 mg iron) tablet Take 1 tablet every day by oral route. [facility] nifedipine ER 30 mg tablet,exte nded release 24 hr Take 1 tablet every day by oral route. nifedipine ER 30 mg tablet,exte nded release 24 hr Take 1 tablet every day by oral route. No 1 Q1D nifedipine ER 30 mg tablet,ext ended release 24 hr Take 1 tablet every day by oral route. [facility] omeprazole 40 mg capsule,del ayed release TAKE 1 CAPSULE BY MOUTH EVERY DAY omeprazole 40 mg capsule,del ayed release TAKE 1 CAPSULE BY MOUTH EVERY DAY No omeprazole 40 mg capsule,de layed release TAKE 1 CAPSULE BY MOUTH EVERY DAY [facility] OneTouch Delica Plus Lancet 33 gauge TEST FOUR TIMES DAILY OneTouch Delica Plus Lancet 33 gauge TEST FOUR TIMES DAILY No OneTouch Delica Plus Lancet 33 gauge TEST FOUR TIMES DAILY [facility] OneTouch Ultra Test strips TEST FOUR TIMES DAILY OneTouch Ultra Test strips TEST FOUR TIMES DAILY No OneTouch Ultra Test strips TEST FOUR TIMES DAILY [facility] OneTouch Ultra2 Meter TEST FOUR TIMES DAILY OneTouch Ultra2 Meter TEST FOUR TIMES DAILY No OneTouch Ultra2 Meter TEST FOUR TIMES DAILY [facility] RhoGAM Ultra-Filte red PLUS 1,500 unit (300 mcg) intramuscul ar syringe Inject 1 syringe by intramuscul ar route. RhoGAM Ultra-Filte red PLUS 1,500 unit (300 mcg) intramuscul ar syringe Inject 1 syringe by intramuscul ar route. No 1syring e(s) RhoGAM Ultra-Filt ered PLUS 1,500 unit (300 mcg) intramuscu lar syringe Inject 1 syringe by intramuscu lar route. [facility] bupropion HCl XL 300 mg 24 hr tablet, extended release TAKE 1 TABLET BY MOUTH EVERY DAY bupropion HCl XL 300 mg 24 hr tablet, extended release TAKE 1 TABLET BY MOUTH EVERY DAY No bupropion HCl XL 300 mg 24 hr tablet, extended release TAKE 1 TABLET BY MOUTH EVERY DAY [facility] enoxaparin 40 mg/0.4 mL subcutaneou s syringe INJECT 40MG SUBCUTANEOU S DAILY enoxaparin 40 mg/0.4 mL subcutaneou s syringe INJECT 40MG SUBCUTANEOU S DAILY No enoxaparin 40 mg/0.4 mL subcutaneo us syringe INJECT 40MG SUBCUTANEO US DAILY [facility] ferrous gluconate 240 mg (27 mg iron) tablet Take 1 tablet every day by oral route. ferrous gluconate 240 mg (27 mg iron) tablet Take 1 tablet every day by oral route. No 1 Q1D ferrous gluconate 240 mg (27 mg iron) tablet Take 1 tablet every day by oral route. [facility] nifedipine ER 30 mg tablet,exte nded release 24 hr TAKE 1 TABLET BY MOUTH EVERY DAY nifedipine ER 30 mg tablet,exte nded release 24 hr TAKE 1 TABLET BY MOUTH EVERY DAY No nifedipine ER 30 mg tablet,ext ended release 24 hr TAKE 1 TABLET BY MOUTH EVERY DAY [facility] omeprazole 40 mg capsule,del ayed release TAKE 1 CAPSULE BY MOUTH EVERY DAY omeprazole 40 mg capsule,del ayed release TAKE 1 CAPSULE BY MOUTH EVERY DAY No omeprazole 40 mg capsule,de layed release TAKE 1 CAPSULE BY MOUTH EVERY DAY [facility] OneTouch Delica Plus Lancet 33 gauge TEST FOUR TIMES DAILY OneTouch Delica Plus Lancet 33 gauge TEST FOUR TIMES DAILY No OneTouch Delica Plus Lancet 33 gauge TEST FOUR TIMES DAILY [facility] OneTouch Ultra Test strips TEST FOUR TIMES DAILY OneTouch Ultra Test strips TEST FOUR TIMES DAILY No OneTouch Ultra Test strips TEST FOUR TIMES DAILY [facility] OneTouch Ultra2 Meter TEST FOUR TIMES DAILY OneTouch Ultra2 Meter TEST FOUR TIMES DAILY No OneTouch Ultra2 Meter TEST FOUR TIMES DAILY [facility] RhoGAM Ultra-Filte red PLUS 1,500 unit (300 mcg) intramuscul ar syringe Inject 1 syringe by intramuscul ar route. RhoGAM Ultra-Filte red PLUS 1,500 unit (300 mcg) intramuscul ar syringe Inject 1 syringe by intramuscul ar route. No 1syring e(s) RhoGAM Ultra-Filt ered PLUS 1,500 unit (300 mcg) intramuscu lar syringe Inject 1 syringe by intramuscu lar route. [facility] bupropion HCl XL 300 mg 24 hr tablet, extended release TAKE 1 TABLET BY MOUTH EVERY DAY bupropion HCl XL 300 mg 24 hr tablet, extended release TAKE 1 TABLET BY MOUTH EVERY DAY No bupropion HCl XL 300 mg 24 hr tablet, extended release TAKE 1 TABLET BY MOUTH EVERY DAY [facility] enoxaparin 40 mg/0.4 mL subcutaneou s syringe INJECT 40MG SUBCUTANEOU S DAILY enoxaparin 40 mg/0.4 mL subcutaneou s syringe INJECT 40MG SUBCUTANEOU S DAILY No enoxaparin 40 mg/0.4 mL subcutaneo us syringe INJECT 40MG SUBCUTANEO US DAILY [facility] ferrous gluconate 240 mg (27 mg iron) tablet Take 1 tablet every day by oral route. ferrous gluconate 240 mg (27 mg iron) tablet Take 1 tablet every day by oral route. No 1 Q1D ferrous gluconate 240 mg (27 mg iron) tablet Take 1 tablet every day by oral route. [facility] metoclopram alma rosa 10 mg tablet TAKE 1 TABLET BY MOUTH FOUR TIMES DAILY DIRECTED metoclopram alma rosa 10 mg tablet TAKE 1 TABLET BY MOUTH FOUR TIMES DAILY DIRECTED No metoclopra mide 10 mg tablet TAKE 1 TABLET BY MOUTH FOUR TIMES DAILY DIRECTED [facility] nifedipine ER 30 mg tablet,exte nded release 24 hr TAKE 1 TABLET BY MOUTH EVERY DAY nifedipine ER 30 mg tablet,exte nded release 24 hr TAKE 1 TABLET BY MOUTH EVERY DAY No nifedipine ER 30 mg tablet,ext ended release 24 hr TAKE 1 TABLET BY MOUTH EVERY DAY [facility] omeprazole 40 mg capsule,del ayed release TAKE 1 CAPSULE BY MOUTH EVERY DAY omeprazole 40 mg capsule,del ayed release TAKE 1 CAPSULE BY MOUTH EVERY DAY No omeprazole 40 mg capsule,de layed release TAKE 1 CAPSULE BY MOUTH EVERY DAY [facility] OneTouch Delica Plus Lancet 33 gauge TEST FOUR TIMES DAILY OneTouch Delica Plus Lancet 33 gauge TEST FOUR TIMES DAILY No OneTouch Delica Plus Lancet 33 gauge TEST FOUR TIMES DAILY [facility] OneTouch Ultra Test strips TEST FOUR TIMES DAILY OneTouch Ultra Test strips TEST FOUR TIMES DAILY No OneTouch Ultra Test strips TEST FOUR TIMES DAILY [facility] OneTouch Ultra2 Meter TEST FOUR TIMES DAILY OneTouch Ultra2 Meter TEST FOUR TIMES DAILY No OneTouch Ultra2 Meter TEST FOUR TIMES DAILY [facility] RhoGAM Ultra-Filte red PLUS 1,500 unit (300 mcg) intramuscul ar syringe Inject 1 syringe by intramuscul ar route. RhoGAM Ultra-Filte red PLUS 1,500 unit (300 mcg) intramuscul ar syringe Inject 1 syringe by intramuscul ar route. No 1syring e(s) RhoGAM Ultra-Filt ered PLUS 1,500 unit (300 mcg) intramuscu lar syringe Inject 1 syringe by intramuscu lar route. [facility] bupropion HCl XL 300 mg 24 hr tablet, extended release TAKE 1 TABLET BY MOUTH EVERY DAY bupropion HCl XL 300 mg 24 hr tablet, extended release TAKE 1 TABLET BY MOUTH EVERY DAY No bupropion HCl XL 300 mg 24 hr tablet, extended release TAKE 1 TABLET BY MOUTH EVERY DAY [facility] enoxaparin 40 mg/0.4 mL subcutaneou s syringe INJECT 40MG SUBCUTANEOU S DAILY enoxaparin 40 mg/0.4 mL subcutaneou s syringe INJECT 40MG SUBCUTANEOU S DAILY No enoxaparin 40 mg/0.4 mL subcutaneo us syringe INJECT 40MG SUBCUTANEO US DAILY [facility] ferrous gluconate 240 mg (27 mg iron) tablet Take 1 tablet every day by oral route. ferrous gluconate 240 mg (27 mg iron) tablet Take 1 tablet every day by oral route. No 1 Q1D ferrous gluconate 240 mg (27 mg iron) tablet Take 1 tablet every day by oral route. [facility] metoclopram alma rosa 10 mg tablet TAKE 1 TABLET BY MOUTH FOUR TIMES DAILY DIRECTED metoclopram alma rosa 10 mg tablet TAKE 1 TABLET BY MOUTH FOUR TIMES DAILY DIRECTED No metoclopra mide 10 mg tablet TAKE 1 TABLET BY MOUTH FOUR TIMES DAILY DIRECTED [facility] nifedipine ER 30 mg tablet,exte nded release 24 hr TAKE 1 TABLET BY MOUTH EVERY DAY nifedipine ER 30 mg tablet,exte nded release 24 hr TAKE 1 TABLET BY MOUTH EVERY DAY No nifedipine ER 30 mg tablet,ext ended release 24 hr TAKE 1 TABLET BY MOUTH EVERY DAY [facility] omeprazole 40 mg capsule,del ayed release TAKE 1 CAPSULE BY MOUTH EVERY DAY omeprazole 40 mg capsule,del ayed release TAKE 1 CAPSULE BY MOUTH EVERY DAY No omeprazole 40 mg capsule,de layed release TAKE 1 CAPSULE BY MOUTH EVERY DAY [facility] OneTouch Delica Plus Lancet 33 gauge TEST FOUR TIMES DAILY OneTouch Delica Plus Lancet 33 gauge TEST FOUR TIMES DAILY No OneTouch Delica Plus Lancet 33 gauge TEST FOUR TIMES DAILY [facility] OneTouch Ultra Test strips TEST FOUR TIMES DAILY OneTouch Ultra Test strips TEST FOUR TIMES DAILY No OneTouch Ultra Test strips TEST FOUR TIMES DAILY [facility] OneTouch Ultra2 Meter TEST FOUR TIMES DAILY OneTouch Ultra2 Meter TEST FOUR TIMES DAILY No OneTouch Ultra2 Meter TEST FOUR TIMES DAILY [facility] RhoGAM Ultra-Filte red PLUS 1,500 unit (300 mcg) intramuscul ar syringe Inject 1 syringe by intramuscul ar route. RhoGAM Ultra-Filte red PLUS 1,500 unit (300 mcg) intramuscul ar syringe Inject 1 syringe by intramuscul ar route. No 1syring e(s) RhoGAM Ultra-Filt ered PLUS 1,500 unit (300 mcg) intramuscu lar syringe Inject 1 syringe by intramuscu lar route. [facility] bupropion HCl XL 300 mg 24 hr tablet, extended release TAKE 1 TABLET BY MOUTH EVERY DAY bupropion HCl XL 300 mg 24 hr tablet, extended release TAKE 1 TABLET BY MOUTH EVERY DAY No bupropion HCl XL 300 mg 24 hr tablet, extended release TAKE 1 TABLET BY MOUTH EVERY DAY [facility] enoxaparin 40 mg/0.4 mL subcutaneou s syringe INJECT 40MG SUBCUTANEOU S DAILY enoxaparin 40 mg/0.4 mL subcutaneou s syringe INJECT 40MG SUBCUTANEOU S DAILY No enoxaparin 40 mg/0.4 mL subcutaneo us syringe INJECT 40MG SUBCUTANEO US DAILY [facility] ferrous gluconate 240 mg (27 mg iron) tablet Take 1 tablet every day by oral route. ferrous gluconate 240 mg (27 mg iron) tablet Take 1 tablet every day by oral route. No 1 Q1D ferrous gluconate 240 mg (27 mg iron) tablet Take 1 tablet every day by oral route. [facility] metoclopram alma rosa 10 mg tablet TAKE 1 TABLET BY MOUTH FOUR TIMES DAILY DIRECTED metoclopram alma rosa 10 mg tablet TAKE 1 TABLET BY MOUTH FOUR TIMES DAILY DIRECTED No metoclopra mide 10 mg tablet TAKE 1 TABLET BY MOUTH FOUR TIMES DAILY DIRECTED [facility] nifedipine ER 30 mg tablet,exte nded release 24 hr TAKE 1 TABLET BY MOUTH EVERY DAY nifedipine ER 30 mg tablet,exte nded release 24 hr TAKE 1 TABLET BY MOUTH EVERY DAY No nifedipine ER 30 mg tablet,ext ended release 24 hr TAKE 1 TABLET BY MOUTH EVERY DAY [facility] omeprazole 40 mg capsule,del ayed release TAKE 1 CAPSULE BY MOUTH EVERY DAY omeprazole 40 mg capsule,del ayed release TAKE 1 CAPSULE BY MOUTH EVERY DAY No omeprazole 40 mg capsule,de layed release TAKE 1 CAPSULE BY MOUTH EVERY DAY [facility] OneTouch Delica Plus Lancet 33 gauge TEST FOUR TIMES DAILY OneTouch Delica Plus Lancet 33 gauge TEST FOUR TIMES DAILY No OneTouch Delica Plus Lancet 33 gauge TEST FOUR TIMES DAILY [facility] OneTouch Ultra Test strips TEST FOUR TIMES DAILY OneTouch Ultra Test strips TEST FOUR TIMES DAILY No OneTouch Ultra Test strips TEST FOUR TIMES DAILY [facility] OneTouch Ultra2 Meter TEST FOUR TIMES DAILY OneTouch Ultra2 Meter TEST FOUR TIMES DAILY No OneTouch Ultra2 Meter TEST FOUR TIMES DAILY [facility] RhoGAM Ultra-Filte red PLUS 1,500 unit (300 mcg) intramuscul ar syringe Inject 1 syringe by intramuscul ar route. RhoGAM Ultra-Filte red PLUS 1,500 unit (300 mcg) intramuscul ar syringe Inject 1 syringe by intramuscul ar route. No 1syring e(s) RhoGAM Ultra-Filt ered PLUS 1,500 unit (300 mcg) intramuscu lar syringe Inject 1 syringe by intramuscu lar route. [facility] bupropion HCl XL 300 mg 24 hr tablet, extended release TAKE 1 TABLET BY MOUTH EVERY DAY bupropion HCl XL 300 mg 24 hr tablet, extended release TAKE 1 TABLET BY MOUTH EVERY DAY No bupropion HCl XL 300 mg 24 hr tablet, extended release TAKE 1 TABLET BY MOUTH EVERY DAY [facility] enoxaparin 40 mg/0.4 mL subcutaneou s syringe INJECT 40MG SUBCUTANEOU S DAILY enoxaparin 40 mg/0.4 mL subcutaneou s syringe INJECT 40MG SUBCUTANEOU S DAILY No enoxaparin 40 mg/0.4 mL subcutaneo us syringe INJECT 40MG SUBCUTANEO US DAILY [facility] ferrous gluconate 240 mg (27 mg iron) tablet Take 1 tablet every day by oral route. ferrous gluconate 240 mg (27 mg iron) tablet Take 1 tablet every day by oral route. No 1 Q1D ferrous gluconate 240 mg (27 mg iron) tablet Take 1 tablet every day by oral route. [facility] metoclopram alma rosa 10 mg tablet TAKE 1 TABLET BY MOUTH FOUR TIMES DAILY DIRECTED metoclopram alma rosa 10 mg tablet TAKE 1 TABLET BY MOUTH FOUR TIMES DAILY DIRECTED No metoclopra mide 10 mg tablet TAKE 1 TABLET BY MOUTH FOUR TIMES DAILY DIRECTED [facility] nifedipine ER 30 mg tablet,exte nded release 24 hr TAKE 1 TABLET BY MOUTH EVERY DAY nifedipine ER 30 mg tablet,exte nded release 24 hr TAKE 1 TABLET BY MOUTH EVERY DAY No nifedipine ER 30 mg tablet,ext ended release 24 hr TAKE 1 TABLET BY MOUTH EVERY DAY [facility] omeprazole 40 mg capsule,del ayed release TAKE 1 CAPSULE BY MOUTH EVERY DAY omeprazole 40 mg capsule,del ayed release TAKE 1 CAPSULE BY MOUTH EVERY DAY No omeprazole 40 mg capsule,de layed release TAKE 1 CAPSULE BY MOUTH EVERY DAY [facility] OneTouch Delica Plus Lancet 33 gauge TEST FOUR TIMES DAILY OneTouch Delica Plus Lancet 33 gauge TEST FOUR TIMES DAILY No OneTouch Delica Plus Lancet 33 gauge TEST FOUR TIMES DAILY [facility] OneTouch Ultra Test strips TEST FOUR TIMES DAILY OneTouch Ultra Test strips TEST FOUR TIMES DAILY No OneTouch Ultra Test strips TEST FOUR TIMES DAILY [facility] OneTouch Ultra2 Meter TEST FOUR TIMES DAILY OneTouch Ultra2 Meter TEST FOUR TIMES DAILY No OneTouch Ultra2 Meter TEST FOUR TIMES DAILY [facility] RhoGAM Ultra-Filte red PLUS 1,500 unit (300 mcg) intramuscul ar syringe Inject 1 syringe by intramuscul ar route. RhoGAM Ultra-Filte red PLUS 1,500 unit (300 mcg) intramuscul ar syringe Inject 1 syringe by intramuscul ar route. No 1syring e(s) RhoGAM Ultra-Filt ered PLUS 1,500 unit (300 mcg) intramuscu lar syringe Inject 1 syringe by intramuscu lar route. [facility] bupropion HCl XL 300 mg 24 hr tablet, extended release TAKE 1 TABLET BY MOUTH EVERY DAY bupropion HCl XL 300 mg 24 hr tablet, extended release TAKE 1 TABLET BY MOUTH EVERY DAY No bupropion HCl XL 300 mg 24 hr tablet, extended release TAKE 1 TABLET BY MOUTH EVERY DAY [facility] enoxaparin 40 mg/0.4 mL subcutaneou s syringe INJECT 40MG SUBCUTANEOU S DAILY enoxaparin 40 mg/0.4 mL subcutaneou s syringe INJECT 40MG SUBCUTANEOU S DAILY No enoxaparin 40 mg/0.4 mL subcutaneo us syringe INJECT 40MG SUBCUTANEO US DAILY [facility] ferrous gluconate 240 mg (27 mg iron) tablet Take 1 tablet every day by oral route. ferrous gluconate 240 mg (27 mg iron) tablet Take 1 tablet every day by oral route. No 1 Q1D ferrous gluconate 240 mg (27 mg iron) tablet Take 1 tablet every day by oral route. [facility] metoclopram alma rosa 10 mg tablet TAKE 1 TABLET BY MOUTH FOUR TIMES DAILY DIRECTED metoclopram alma rosa 10 mg tablet TAKE 1 TABLET BY MOUTH FOUR TIMES DAILY DIRECTED No metoclopra mide 10 mg tablet TAKE 1 TABLET BY MOUTH FOUR TIMES DAILY DIRECTED [facility] nifedipine ER 30 mg tablet,exte nded release 24 hr TAKE 1 TABLET BY MOUTH EVERY DAY nifedipine ER 30 mg tablet,exte nded release 24 hr TAKE 1 TABLET BY MOUTH EVERY DAY No nifedipine ER 30 mg tablet,ext ended release 24 hr TAKE 1 TABLET BY MOUTH EVERY DAY [facility] omeprazole 40 mg capsule,del ayed release TAKE 1 CAPSULE BY MOUTH EVERY DAY omeprazole 40 mg capsule,del ayed release TAKE 1 CAPSULE BY MOUTH EVERY DAY No omeprazole 40 mg capsule,de layed release TAKE 1 CAPSULE BY MOUTH EVERY DAY [facility] OneTouch Delica Plus Lancet 33 gauge TEST FOUR TIMES DAILY OneTouch Delica Plus Lancet 33 gauge TEST FOUR TIMES DAILY No OneTouch Delica Plus Lancet 33 gauge TEST FOUR TIMES DAILY [facility] OneTouch Ultra Test strips TEST FOUR TIMES DAILY OneTouch Ultra Test strips TEST FOUR TIMES DAILY No OneTouch Ultra Test strips TEST FOUR TIMES DAILY [facility] OneTouch Ultra2 Meter TEST FOUR TIMES DAILY OneTouch Ultra2 Meter TEST FOUR TIMES DAILY No OneTouch Ultra2 Meter TEST FOUR TIMES DAILY [facility] RhoGAM Ultra-Filte red PLUS 1,500 unit (300 mcg) intramuscul ar syringe Inject 1 syringe by intramuscul ar route. RhoGAM Ultra-Filte red PLUS 1,500 unit (300 mcg) intramuscul ar syringe Inject 1 syringe by intramuscul ar route. No 1syring e(s) RhoGAM Ultra-Filt ered PLUS 1,500 unit (300 mcg) intramuscu lar syringe Inject 1 syringe by intramuscu lar route. [facility] amoxicillin 875 mg-potassiu m clavulanate 125 mg tablet TAKE 1 TABLET BY MOUTH TWICE DAILY amoxicillin 875 mg-potassiu m clavulanate 125 mg tablet TAKE 1 TABLET BY MOUTH TWICE DAILY No amoxicilli n 875 mg-potassi um clavulanat e 125 mg tablet TAKE 1 TABLET BY MOUTH TWICE DAILY [facility] bupropion HCl XL 300 mg 24 hr tablet, extended release TAKE 1 TABLET BY MOUTH EVERY DAY bupropion HCl XL 300 mg 24 hr tablet, extended release TAKE 1 TABLET BY MOUTH EVERY DAY No bupropion HCl XL 300 mg 24 hr tablet, extended release TAKE 1 TABLET BY MOUTH EVERY DAY [facility] enoxaparin 40 mg/0.4 mL subcutaneou s syringe INJECT 40MG SUBCUTANEOU S DAILY enoxaparin 40 mg/0.4 mL subcutaneou s syringe INJECT 40MG SUBCUTANEOU S DAILY No enoxaparin 40 mg/0.4 mL subcutaneo us syringe INJECT 40MG SUBCUTANEO US DAILY [facility] ferrous gluconate 240 mg (27 mg iron) tablet Take 1 tablet every day by oral route. ferrous gluconate 240 mg (27 mg iron) tablet Take 1 tablet every day by oral route. No 1 Q1D ferrous gluconate 240 mg (27 mg iron) tablet Take 1 tablet every day by oral route. [facility] Lexapro 20 mg tablet Take 1 tablet every day by oral route. Lexapro 20 mg tablet Take 1 tablet every day by oral route. No 1 Q1D Lexapro 20 mg tablet Take 1 tablet every day by oral route. [facility] losartan 50 mg-hydrochl orothiazide 12.5 mg tablet Take 1 tablet every day by oral route. losartan 50 mg-hydrochl orothiazide 12.5 mg tablet Take 1 tablet every day by oral route. No 1 Q1D losartan 50 mg-hydroch lorothiazi de 12.5 mg tablet Take 1 tablet every day by oral route. [facility] metoclopram alma rosa 10 mg tablet TAKE 1 TABLET BY MOUTH FOUR TIMES DAILY DIRECTED metoclopram alma rosa 10 mg tablet TAKE 1 TABLET BY MOUTH FOUR TIMES DAILY DIRECTED No metoclopra mide 10 mg tablet TAKE 1 TABLET BY MOUTH FOUR TIMES DAILY DIRECTED [facility] nifedipine ER 30 mg tablet,exte nded release 24 hr TAKE 1 TABLET BY MOUTH EVERY DAY nifedipine ER 30 mg tablet,exte nded release 24 hr TAKE 1 TABLET BY MOUTH EVERY DAY No nifedipine ER 30 mg tablet,ext ended release 24 hr TAKE 1 TABLET BY MOUTH EVERY DAY [facility] omeprazole 40 mg capsule,del ayed release TAKE 1 CAPSULE BY MOUTH EVERY DAY omeprazole 40 mg capsule,del ayed release TAKE 1 CAPSULE BY MOUTH EVERY DAY No omeprazole 40 mg capsule,de layed release TAKE 1 CAPSULE BY MOUTH EVERY DAY [facility] OneTouch Delica Plus Lancet 33 gauge TEST FOUR TIMES DAILY OneTouch Delica Plus Lancet 33 gauge TEST FOUR TIMES DAILY No OneTouch Delica Plus Lancet 33 gauge TEST FOUR TIMES DAILY [facility] OneTouch Ultra Test strips TEST FOUR TIMES DAILY OneTouch Ultra Test strips TEST FOUR TIMES DAILY No OneTouch Ultra Test strips TEST FOUR TIMES DAILY [facility] OneTouch Ultra2 Meter TEST FOUR TIMES DAILY OneTouch Ultra2 Meter TEST FOUR TIMES DAILY No OneTouch Ultra2 Meter TEST FOUR TIMES DAILY [facility] RhoGAM Ultra-Filte red PLUS 1,500 unit (300 mcg) intramuscul ar syringe Inject 1 syringe by intramuscul ar route. RhoGAM Ultra-Filte red PLUS 1,500 unit (300 mcg) intramuscul ar syringe Inject 1 syringe by intramuscul ar route. No 1syring e(s) RhoGAM Ultra-Filt ered PLUS 1,500 unit (300 mcg) intramuscu lar syringe Inject 1 syringe by intramuscu lar route. [facility] ciprofloxac in 500 mg tablet TAKE 1 TABLET BY MOUTH TWICE DAILY ciprofloxac in 500 mg tablet TAKE 1 TABLET BY MOUTH TWICE DAILY No ciprofloxa mike 500 mg tablet TAKE 1 TABLET BY MOUTH TWICE DAILY [facility] Cortisporin -TC 3.3 mg-3 mg-10 mg-0.5 mg/mL ear drops,suspe nsion INSTILL 1 DROP INTO AFFECTED EAR(S) EVERY 4 HOURS Cortisporin -TC 3.3 mg-3 mg-10 mg-0.5 mg/mL ear drops,suspe nsion INSTILL 1 DROP INTO AFFECTED EAR(S) EVERY 4 HOURS No Cortispori n-TC 3.3 mg-3 mg-10 mg-0.5 mg/mL ear drops,susp ension INSTILL 1 DROP INTO AFFECTED EAR(S) EVERY 4 HOURS [facility] lisinopril 10 mg-hydrochl orothiazide 12.5 mg tablet TAKE 1 TABLET BY MOUTH ONCE DAILY FOR BLOOD PRESSURE lisinopril 10 mg-hydrochl orothiazide 12.5 mg tablet TAKE 1 TABLET BY MOUTH ONCE DAILY FOR BLOOD PRESSURE No lisinopril 10 mg-hydroch lorothiazi de 12.5 mg tablet TAKE 1 TABLET BY MOUTH ONCE DAILY FOR BLOOD PRESSURE [facility] metformin 500 mg tablet Take 1 tablet twice a day by oral route. metformin 500 mg tablet Take 1 tablet twice a day by oral route. No 1 BID metformin 500 mg tablet Take 1 tablet twice a day by oral route. [facility] acetaminoph en 300 mg-codeine 30 mg tablet Take 1-2 tabs p.o. q 6 hours PRN pain acetaminoph en 300 mg-codeine 30 mg tablet Take 1-2 tabs p.o. q 6 hours PRN pain No acetaminop hen 300 mg-codeine 30 mg tablet Take 1-2 tabs p.o. q 6 hours PRN pain [facility] bupropion HCl XL 300 mg 24 hr tablet, extended release TAKE 1 TABLET BY MOUTH EVERY DAY bupropion HCl XL 300 mg 24 hr tablet, extended release TAKE 1 TABLET BY MOUTH EVERY DAY No bupropion HCl XL 300 mg 24 hr tablet, extended release TAKE 1 TABLET BY MOUTH EVERY DAY [facility] enoxaparin 40 mg/0.4 mL subcutaneou s syringe INJECT 40MG SUBCUTANEOU S DAILY enoxaparin 40 mg/0.4 mL subcutaneou s syringe INJECT 40MG SUBCUTANEOU S DAILY No enoxaparin 40 mg/0.4 mL subcutaneo us syringe INJECT 40MG SUBCUTANEO US DAILY [facility] escitalopra m 20 mg tablet TAKE 1 TABLET BY MOUTH EVERY DAY escitalopra m 20 mg tablet TAKE 1 TABLET BY MOUTH EVERY DAY No escitalopr am 20 mg tablet TAKE 1 TABLET BY MOUTH EVERY DAY [facility] ferrous gluconate 240 mg (27 mg iron) tablet Take 1 tablet every day by oral route. ferrous gluconate 240 mg (27 mg iron) tablet Take 1 tablet every day by oral route. No 1 Q1D ferrous gluconate 240 mg (27 mg iron) tablet Take 1 tablet every day by oral route. [facility] ibuprofen 800 mg tablet Take 1 tablet every 6 hours by oral route as needed. ibuprofen 800 mg tablet Take 1 tablet every 6 hours by oral route as needed. No 1 Q6H ibuprofen 800 mg tablet Take 1 tablet every 6 hours by oral route as needed. [facility] methylpredn isolone 4 mg tablets in a dose pack TAKE DIRECTED methylpredn isolone 4 mg tablets in a dose pack TAKE DIRECTED No methylpred nisolone 4 mg tablets in a dose pack TAKE DIRECTED [facility] losartan 50 mg-hydrochl orothiazide 12.5 mg tablet TAKE 1 TABLET BY MOUTH EVERY DAY losartan 50 mg-hydrochl orothiazide 12.5 mg tablet TAKE 1 TABLET BY MOUTH EVERY DAY No losartan 50 mg-hydroch lorothiazi de 12.5 mg tablet TAKE 1 TABLET BY MOUTH EVERY DAY [facility] omeprazole 40 mg capsule,del ayed release TAKE 1 CAPSULE BY MOUTH EVERY DAY omeprazole 40 mg capsule,del ayed release TAKE 1 CAPSULE BY MOUTH EVERY DAY No omeprazole 40 mg capsule,de layed release TAKE 1 CAPSULE BY MOUTH EVERY DAY [facility] OneTouch Delica Plus Lancet 33 gauge TEST FOUR TIMES DAILY OneTouch Delica Plus Lancet 33 gauge TEST FOUR TIMES DAILY No OneTouch Delica Plus Lancet 33 gauge TEST FOUR TIMES DAILY [facility] OneTouch Ultra Test strips TEST FOUR TIMES DAILY OneTouch Ultra Test strips TEST FOUR TIMES DAILY No OneTouch Ultra Test strips TEST FOUR TIMES DAILY [facility] OneTouch Ultra2 Meter TEST FOUR TIMES DAILY OneTouch Ultra2 Meter TEST FOUR TIMES DAILY No OneTouch Ultra2 Meter TEST FOUR TIMES DAILY [facility] RhoGAM Ultra-Filte red PLUS 1,500 unit (300 mcg) intramuscul ar syringe Inject 1 syringe by intramuscul ar route. RhoGAM Ultra-Filte red PLUS 1,500 unit (300 mcg) intramuscul ar syringe Inject 1 syringe by intramuscul ar route. No 1syring e(s) RhoGAM Ultra-Filt ered PLUS 1,500 unit (300 mcg) intramuscu lar syringe Inject 1 syringe by intramuscu lar route. [facility] phenazopyri dine 200 mg tablet phenazopyri dine 200 mg tablet No phenazopyr idine 200 mg tablet [facility] Prescriptio n - Prior Authorizati on Request Prescriptio n - Prior Authorizati on Request No Prescripti on - Prior Authorizat ion Request [facility] progesteron e micronized 200 mg capsule Take 1 capsule twice a day by oral route. progesteron e micronized 200 mg capsule Take 1 capsule twice a day by oral route. No 1capsul e(s) BID progestero ne micronized 200 mg capsule Take 1 capsule twice a day by oral route. [facility] acetaminoph en 300 mg-codeine 30 mg tablet TAKE 1 TO 2 TABLETS BY MOUTH EVERY 6 HOURS NEEDED FOR PAIN acetaminoph en 300 mg-codeine 30 mg tablet TAKE 1 TO 2 TABLETS BY MOUTH EVERY 6 HOURS NEEDED FOR PAIN No acetaminop hen 300 mg-codeine 30 mg tablet TAKE 1 TO 2 TABLETS BY MOUTH EVERY 6 HOURS NEEDED FOR PAIN [facility] bupropion HCl XL 300 mg 24 hr tablet, extended release TAKE 1 TABLET BY MOUTH EVERY DAY bupropion HCl XL 300 mg 24 hr tablet, extended release TAKE 1 TABLET BY MOUTH EVERY DAY No bupropion HCl XL 300 mg 24 hr tablet, extended release TAKE 1 TABLET BY MOUTH EVERY DAY [facility] cefuroxime axetil 500 mg tablet Take 1 tablet twice a day by oral route for 5 days. cefuroxime axetil 500 mg tablet Take 1 tablet twice a day by oral route for 5 days. No 1 BID cefuroxime axetil 500 mg tablet Take 1 tablet twice a day by oral route for 5 days. [facility] Diflucan 100 mg tablet Take 1 tablet by oral route. Diflucan 100 mg tablet Take 1 tablet by oral route. No 1 Diflucan 100 mg tablet Take 1 tablet by oral route. [facility] enoxaparin 40 mg/0.4 mL subcutaneou s syringe INJECT 40MG SUBCUTANEOU S DAILY enoxaparin 40 mg/0.4 mL subcutaneou s syringe INJECT 40MG SUBCUTANEOU S DAILY No enoxaparin 40 mg/0.4 mL subcutaneo us syringe INJECT 40MG SUBCUTANEO US DAILY [facility] escitalopra m 20 mg tablet TAKE 1 TABLET BY MOUTH EVERY DAY escitalopra m 20 mg tablet TAKE 1 TABLET BY MOUTH EVERY DAY No escitalopr am 20 mg tablet TAKE 1 TABLET BY MOUTH EVERY DAY [facility] ferrous gluconate 240 mg (27 mg iron) tablet Take 1 tablet every day by oral route. ferrous gluconate 240 mg (27 mg iron) tablet Take 1 tablet every day by oral route. No 1 Q1D ferrous gluconate 240 mg (27 mg iron) tablet Take 1 tablet every day by oral route. [facility] ibuprofen 800 mg tablet TAKE 1 TABLET BY MOUTH EVERY 6 HOURS NEEDED ibuprofen 800 mg tablet TAKE 1 TABLET BY MOUTH EVERY 6 HOURS NEEDED No ibuprofen 800 mg tablet TAKE 1 TABLET BY MOUTH EVERY 6 HOURS NEEDED [facility] losartan 50 mg-hydrochl orothiazide 12.5 mg tablet TAKE 1 TABLET BY MOUTH EVERY DAY losartan 50 mg-hydrochl orothiazide 12.5 mg tablet TAKE 1 TABLET BY MOUTH EVERY DAY No losartan 50 mg-hydroch lorothiazi de 12.5 mg tablet TAKE 1 TABLET BY MOUTH EVERY DAY [facility] metoclopram alma rosa 10 mg tablet TAKE 1 TABLET BY MOUTH FOUR TIMES DAILY DIRECTED metoclopram alma rosa 10 mg tablet TAKE 1 TABLET BY MOUTH FOUR TIMES DAILY DIRECTED No metoclopra mide 10 mg tablet TAKE 1 TABLET BY MOUTH FOUR TIMES DAILY DIRECTED [facility] omeprazole 40 mg capsule,del ayed release TAKE 1 CAPSULE BY MOUTH EVERY DAY omeprazole 40 mg capsule,del ayed release TAKE 1 CAPSULE BY MOUTH EVERY DAY No omeprazole 40 mg capsule,de layed release TAKE 1 CAPSULE BY MOUTH EVERY DAY [facility] OneTouch Delica Plus Lancet 33 gauge TEST FOUR TIMES DAILY OneTouch Delica Plus Lancet 33 gauge TEST FOUR TIMES DAILY No OneTouch Delica Plus Lancet 33 gauge TEST FOUR TIMES DAILY [facility] OneTouch Ultra Test strips TEST FOUR TIMES DAILY OneTouch Ultra Test strips TEST FOUR TIMES DAILY No OneTouch Ultra Test strips TEST FOUR TIMES DAILY [facility] OneTouch Ultra2 Meter TEST FOUR TIMES DAILY OneTouch Ultra2 Meter TEST FOUR TIMES DAILY No OneTouch Ultra2 Meter TEST FOUR TIMES DAILY [facility] RhoGAM Ultra-Filte red PLUS 1,500 unit (300 mcg) intramuscul ar syringe Inject 1 syringe by intramuscul ar route. RhoGAM Ultra-Filte red PLUS 1,500 unit (300 mcg) intramuscul ar syringe Inject 1 syringe by intramuscul ar route. No 1syring e(s) RhoGAM Ultra-Filt ered PLUS 1,500 unit (300 mcg) intramuscu lar syringe Inject 1 syringe by intramuscu lar route. [facility] acetaminoph en 300 mg-codeine 30 mg tablet TAKE 1 TO 2 TABLETS BY MOUTH EVERY 6 HOURS NEEDED FOR PAIN acetaminoph en 300 mg-codeine 30 mg tablet TAKE 1 TO 2 TABLETS BY MOUTH EVERY 6 HOURS NEEDED FOR PAIN No acetaminop hen 300 mg-codeine 30 mg tablet TAKE 1 TO 2 TABLETS BY MOUTH EVERY 6 HOURS NEEDED FOR PAIN [facility] bupropion HCl XL 300 mg 24 hr tablet, extended release TAKE 1 TABLET BY MOUTH EVERY DAY bupropion HCl XL 300 mg 24 hr tablet, extended release TAKE 1 TABLET BY MOUTH EVERY DAY No bupropion HCl XL 300 mg 24 hr tablet, extended release TAKE 1 TABLET BY MOUTH EVERY DAY [facility] cefuroxime axetil 500 mg tablet TAKE 1 TABLET BY MOUTH TWICE DAILY FOR 5 DAYS cefuroxime axetil 500 mg tablet TAKE 1 TABLET BY MOUTH TWICE DAILY FOR 5 DAYS No cefuroxime axetil 500 mg tablet TAKE 1 TABLET BY MOUTH TWICE DAILY FOR 5 DAYS [facility] enoxaparin 40 mg/0.4 mL subcutaneou s syringe INJECT 40MG SUBCUTANEOU S DAILY enoxaparin 40 mg/0.4 mL subcutaneou s syringe INJECT 40MG SUBCUTANEOU S DAILY No enoxaparin 40 mg/0.4 mL subcutaneo us syringe INJECT 40MG SUBCUTANEO US DAILY [facility] escitalopra m 20 mg tablet TAKE 1 TABLET BY MOUTH EVERY DAY escitalopra m 20 mg tablet TAKE 1 TABLET BY MOUTH EVERY DAY No escitalopr am 20 mg tablet TAKE 1 TABLET BY MOUTH EVERY DAY [facility] ferrous gluconate 240 mg (27 mg iron) tablet Take 1 tablet every day by oral route. ferrous gluconate 240 mg (27 mg iron) tablet Take 1 tablet every day by oral route. No 1 Q1D ferrous gluconate 240 mg (27 mg iron) tablet Take 1 tablet every day by oral route. [facility] fluconazole 100 mg tablet TAKE 1 TABLET BY MOUTH DIRECTED fluconazole 100 mg tablet TAKE 1 TABLET BY MOUTH DIRECTED No fluconazol e 100 mg tablet TAKE 1 TABLET BY MOUTH DIRECTED [facility] ibuprofen 800 mg tablet TAKE 1 TABLET BY MOUTH EVERY 6 HOURS NEEDED ibuprofen 800 mg tablet TAKE 1 TABLET BY MOUTH EVERY 6 HOURS NEEDED No ibuprofen 800 mg tablet TAKE 1 TABLET BY MOUTH EVERY 6 HOURS NEEDED [facility] losartan 50 mg-hydrochl orothiazide 12.5 mg tablet TAKE 1 TABLET BY MOUTH EVERY DAY losartan 50 mg-hydrochl orothiazide 12.5 mg tablet TAKE 1 TABLET BY MOUTH EVERY DAY No losartan 50 mg-hydroch lorothiazi de 12.5 mg tablet TAKE 1 TABLET BY MOUTH EVERY DAY [facility] metoclopram alma rosa 10 mg tablet TAKE 1 TABLET BY MOUTH FOUR TIMES DAILY DIRECTED metoclopram alma rosa 10 mg tablet TAKE 1 TABLET BY MOUTH FOUR TIMES DAILY DIRECTED No metoclopra mide 10 mg tablet TAKE 1 TABLET BY MOUTH FOUR TIMES DAILY DIRECTED [facility] omeprazole 40 mg capsule,del ayed release TAKE 1 CAPSULE BY MOUTH EVERY DAY omeprazole 40 mg capsule,del ayed release TAKE 1 CAPSULE BY MOUTH EVERY DAY No omeprazole 40 mg capsule,de layed release TAKE 1 CAPSULE BY MOUTH EVERY DAY [facility] OneTouch Delica Plus Lancet 33 gauge TEST FOUR TIMES DAILY OneTouch Delica Plus Lancet 33 gauge TEST FOUR TIMES DAILY No OneTouch Delica Plus Lancet 33 gauge TEST FOUR TIMES DAILY [facility] OneTouch Ultra Test strips TEST FOUR TIMES DAILY OneTouch Ultra Test strips TEST FOUR TIMES DAILY No OneTouch Ultra Test strips TEST FOUR TIMES DAILY [facility] OneTouch Ultra2 Meter TEST FOUR TIMES DAILY OneTouch Ultra2 Meter TEST FOUR TIMES DAILY No OneTouch Ultra2 Meter TEST FOUR TIMES DAILY [facility] RhoGAM Ultra-Filte red PLUS 1,500 unit (300 mcg) intramuscul ar syringe Inject 1 syringe by intramuscul ar route. RhoGAM Ultra-Filte red PLUS 1,500 unit (300 mcg) intramuscul ar syringe Inject 1 syringe by intramuscul ar route. No 1syring e(s) RhoGAM Ultra-Filt ered PLUS 1,500 unit (300 mcg) intramuscu lar syringe Inject 1 syringe by intramuscu lar route. [facility] Immunizations Ordered Immunization Name Filled Immunization Name Date Status Comments Source COVID-19, mRNA, LNP-S, PF, 30 mcg/0.3 mL dose ([facility]) - ML COVID-19, mRNA, LNP-S, PF, 30 mcg/0.3 mL dose ([email or web address]) - 2021-05-17 00:00:00 Completed [facility] COVID-19, mRNA, LNP-S, PF, 30 mcg/0.3 mL dose ([email or web address]) - ML COVID-19, mRNA, LNP-S, PF, 30 mcg/0.3 mL dose ([facility]) - 2021-04-26 00:00:00 Completed [facility] COVID-19 (SARS-COV-2) vaccine, unspecified COVID-19 (SARS-COV-2) vaccine, unspecified 2020-12-11 00:00:00 Completed [facility] COVID-19 (SARS-COV-2) vaccine, unspecified COVID-19 (SARS-COV-2) vaccine, unspecified 2020-12-11 00:00:00 Completed [facility] COVID-19 (SARS-COV-2) vaccine, unspecified COVID-19 (SARS-COV-2) vaccine, unspecified 2020-12-11 00:00:00 Completed [facility] COVID-19 (SARS-COV-2) vaccine, unspecified COVID-19 (SARS-COV-2) vaccine, unspecified 2020-12-11 00:00:00 Completed [facility] COVID-19 (SARS-COV-2) vaccine, unspecified COVID-19 (SARS-COV-2) vaccine, unspecified 2020-12-11 00:00:00 Completed [facility] COVID-19 (SARS-COV-2) vaccine, unspecified COVID-19 (SARS-COV-2) vaccine, unspecified 2020-12-11 00:00:00 Completed [facility] COVID-19 (SARS-COV-2) vaccine, unspecified COVID-19 (SARS-COV-2) vaccine, unspecified 2020-12-11 00:00:00 Completed [facility] COVID-19 (SARS-COV-2) vaccine, unspecified COVID-19 (SARS-COV-2) vaccine, unspecified 2020-12-11 00:00:00 Completed [facility] COVID-19 (SARS-COV-2) vaccine, unspecified COVID-19 (SARS-COV-2) vaccine, unspecified 2020-12-11 00:00:00 Completed [facility] COVID-19 (SARS-COV-2) vaccine, unspecified COVID-19 (SARS-COV-2) vaccine, unspecified 2020-12-11 00:00:00 Completed [facility] COVID-19 (SARS-COV-2) vaccine, unspecified COVID-19 (SARS-COV-2) vaccine, unspecified 2020-12-11 00:00:00 Completed [facility] COVID-19 (SARS-COV-2) vaccine, unspecified COVID-19 (SARS-COV-2) vaccine, unspecified 2020-12-11 00:00:00 Completed [facility] COVID-19 (SARS-COV-2) vaccine, unspecified COVID-19 (SARS-COV-2) vaccine, unspecified 2020-09-11 00:00:00 Completed [facility] COVID-19 (SARS-COV-2) vaccine, unspecified COVID-19 (SARS-COV-2) vaccine, unspecified 2020-09-11 00:00:00 Completed [facility] COVID-19 (SARS-COV-2) vaccine, unspecified COVID-19 (SARS-COV-2) vaccine, unspecified 2020-09-11 00:00:00 Completed [facility] COVID-19 (SARS-COV-2) vaccine, unspecified COVID-19 (SARS-COV-2) vaccine, unspecified 2020-09-11 00:00:00 Completed [facility] COVID-19 (SARS-COV-2) vaccine, unspecified COVID-19 (SARS-COV-2) vaccine, unspecified 2020-09-11 00:00:00 Completed [facility] COVID-19 (SARS-COV-2) vaccine, unspecified COVID-19 (SARS-COV-2) vaccine, unspecified 2020-09-11 00:00:00 Completed [facility] COVID-19 (SARS-COV-2) vaccine, unspecified COVID-19 (SARS-COV-2) vaccine, unspecified 2020-09-11 00:00:00 Completed [facility] COVID-19 (SARS-COV-2) vaccine, unspecified COVID-19 (SARS-COV-2) vaccine, unspecified 2020-09-11 00:00:00 Completed [facility] COVID-19 (SARS-COV-2) vaccine, unspecified COVID-19 (SARS-COV-2) vaccine, unspecified 2020-09-11 00:00:00 Completed [facility] COVID-19 (SARS-COV-2) vaccine, unspecified COVID-19 (SARS-COV-2) vaccine, unspecified 2020-09-11 00:00:00 Completed [facility] COVID-19 (SARS-COV-2) vaccine, unspecified COVID-19 (SARS-COV-2) vaccine, unspecified 2020-09-11 00:00:00 Completed [facility] COVID-19 (SARS-COV-2) vaccine, unspecified COVID-19 (SARS-COV-2) vaccine, unspecified 2020-09-11 00:00:00 Completed [facility] HEP B, Adult Dosage 2018-01-26 00:00:00 Completed [facility] HEP B, Adult Dosage 2018-01-26 00:00:00 Completed [facility] HEP B, Adult Dosage 2018-01-26 00:00:00 Completed [facility] Hep B, adult Hep B, adult 2018-01-26 00:00:00 Completed [facility] Hep B, adult Hep B, adult 2018-01-26 00:00:00 Completed [facility] Hep B, adult Hep B, adult 2018-01-26 00:00:00 Completed [facility] Hep B, adult Hep B, adult 2018-01-26 00:00:00 Completed [facility] Hep B, adult Hep B, adult 2018-01-26 00:00:00 Completed [facility] Hep B, adult Hep B, adult 2018-01-26 00:00:00 Completed [facility] Hep B, adult Hep B, adult 2018-01-26 00:00:00 Completed [facility] Hep B, adult Hep B, adult 2018-01-26 00:00:00 Completed [facility] Hep B, adult Hep B, adult 2018-01-26 00:00:00 Completed [facility] Hep B, adult Hep B, adult 2018-01-26 00:00:00 Completed [facility] Hep B, adult Hep B, adult 2018-01-26 00:00:00 Completed [facility] Hep B, adult Hep B, adult 2018-01-26 00:00:00 Completed [facility] Hep B, adult Hep B, adult 2018-01-26 00:00:00 Completed [facility] TDAP 2018-01-09 00:00:00 Completed [facility] TDAP 2018-01-09 00:00:00 Completed [facility] TDAP 2018-01-09 00:00:00 Completed [facility] Tdap Tdap 2018-01-09 00:00:00 Completed [facility] Tdap Tdap 2018-01-09 00:00:00 Completed [facility] Tdap Tdap 2018-01-09 00:00:00 Completed [facility] Tdap Tdap 2018-01-09 00:00:00 Completed [facility] Tdap Tdap 2018-01-09 00:00:00 Completed [facility] Tdap Tdap 2018-01-09 00:00:00 Completed [facility] Tdap Tdap 2018-01-09 00:00:00 Completed [facility] Tdap Tdap 2018-01-09 00:00:00 Completed [facility] Tdap Tdap 2018-01-09 00:00:00 Completed [facility] Tdap Tdap 2018-01-09 00:00:00 Completed [facility] Tdap Tdap 2018-01-09 00:00:00 Completed [facility] Tdap Tdap 2018-01-09 00:00:00 Completed [facility] Tdap Tdap 2018-01-09 00:00:00 Completed [facility] COVID-19, mRNA, LNP-S, PF, 30 mcg/0.3 mL dose ([employer]) - ML COVID-19, mRNA, LNP-S, PF, 30 mcg/0.3 mL dose ([employer]) - ML Unknown Completed [facility] COVID-19, mRNA, LNP-S, PF, 30 mcg/0.3 mL dose ([employer]) - ML COVID-19, mRNA, LNP-S, PF, 30 mcg/0.3 mL dose ([employer]) - ML Unknown Completed [facility] COVID-19 (SARS-COV-2) vaccine, unspecified COVID-19 (SARS-COV-2) vaccine, unspecified Unknown Completed [facility] Hep B, adult Hep B, adult Unknown Completed [facility] Tdap Tdap Unknown Completed [facility] COVID-19, mRNA, LNP-S, PF, 30 mcg/0.3 mL dose (Pf[employer]) - ML COVID-19, mRNA, LNP-S, PF, 30 mcg/0.3 mL dose ([employer]) - ML Unknown Completed [facility] COVID-19, mRNA, LNP-S, PF, 30 mcg/0.3 mL dose (Pf[employer]) - ML COVID-19, mRNA, LNP-S, PF, 30 mcg/0.3 mL dose (Pf[employer]) - ML Unknown Completed [facility] COVID-19 (SARS-COV-2) vaccine, unspecified COVID-19 (SARS-COV-2) vaccine, unspecified Unknown Completed [facility] Hep B, adult Hep B, adult Unknown Completed [facility] Tdap Tdap Unknown Completed [facility] COVID-19, mRNA, LNP-S, PF, 30 mcg/0.3 mL dose (Pf[employer]) - ML COVID-19, mRNA, LNP-S, PF, 30 mcg/0.3 mL dose ([employer]) - ML Unknown Completed [facility] COVID-19, mRNA, LNP-S, PF, 30 mcg/0.3 mL dose (Pf[employer]) - ML COVID-19, mRNA, LNP-S, PF, 30 mcg/0.3 mL dose ([employer]) - ML Unknown Completed [facility] COVID-19 (SARS-COV-2) vaccine, unspecified COVID-19 (SARS-COV-2) vaccine, unspecified Unknown Completed [facility] Hep B, adult Hep B, adult Unknown Completed [facility] Tdap Tdap Unknown Completed [facility] COVID-19, mRNA, LNP-S, PF, 30 mcg/0.3 mL dose (Pf[employer]) - ML COVID-19, mRNA, LNP-S, PF, 30 mcg/0.3 mL dose ([employer]) - ML Unknown Completed [facility] COVID-19, mRNA, LNP-S, PF, 30 mcg/0.3 mL dose (Pfizer[employer]) - ML COVID-19, mRNA, LNP-S, PF, 30 mcg/0.3 mL dose (Pfizer[employer]Bio[employer]ech) - ML Unknown Completed [facility] COVID-19 (SARS-COV-2) vaccine, unspecified COVID-19 (SARS-COV-2) vaccine, unspecified Unknown Completed [facility] Hep B, adult Hep B, adult Unknown Completed [facility] Tdap Tdap Unknown Completed [facility] COVID-19, mRNA, LNP-S, PF, 30 mcg/0.3 mL dose (Pf[employer]-Bio[employer]) - ML COVID-19, mRNA, LNP-S, PF, 30 mcg/0.3 mL dose ([employer]) - ML Unknown Completed [facility] COVID-19, mRNA, LNP-S, PF, 30 mcg/0.3 mL dose (Pfizer-Bio[employer]ech) - ML COVID-19, mRNA, LNP-S, PF, 30 mcg/0.3 mL dose (Pfizer-Bio[employer]ech) - ML Unknown Completed [facility] COVID-19 (SARS-COV-2) vaccine, unspecified COVID-19 (SARS-COV-2) vaccine, unspecified Unknown Completed [facility] Hep B, adult Hep B, adult Unknown Completed [facility] Tdap Tdap Unknown Completed [facility] COVID-19, mRNA, LNP-S, PF, 30 mcg/0.3 mL dose ([employer]) - ML COVID-19, mRNA, LNP-S, PF, 30 mcg/0.3 mL dose (Pfizer-Bio[employer]) - ML Unknown Completed [facility] COVID-19, mRNA, LNP-S, PF, 30 mcg/0.3 mL dose (Pfizer-BioNTech) - ML COVID-19, mRNA, LNP-S, PF, 30 mcg/0.3 mL dose (Pf[employer]) - ML Unknown Completed [facility] COVID-19 (SARS-COV-2) vaccine, unspecified COVID-19 (SARS-COV-2) vaccine, unspecified Unknown Completed [facility] Hep B, adult Hep B, adult Unknown Completed [facility] Tdap Tdap Unknown Completed [facility] COVID-19, mRNA, LNP-S, PF, 30 mcg/0.3 mL dose (Pf[employer]) - ML COVID-19, mRNA, LNP-S, PF, 30 mcg/0.3 mL dose (Pf[employer]) - ML Unknown Completed [facility] COVID-19, mRNA, LNP-S, PF, 30 mcg/0.3 mL dose (Pf[employer]) - ML COVID-19, mRNA, LNP-S, PF, 30 mcg/0.3 mL dose (Pf[employer]) - ML Unknown Completed [facility] COVID-19 (SARS-COV-2) vaccine, unspecified COVID-19 (SARS-COV-2) vaccine, unspecified Unknown Completed [facility] Hep B, adult Hep B, adult Unknown Completed [facility] Tdap Tdap Unknown Completed [facility] Vital Signs Vital Name Observation Time Observation Value Comments S rahulce Body Weight 2023-05-20 00:00:00 240.3 [lb_av] [facility] BMI (Body Mass Index) 2023-05-20 00:00:00 42.6 kg/m2 [facility] BP Systolic 2023-05-20 00:00:00 149 mm[Hg] [facility] BP Diastolic 2023-05-20 00:00:00 96 mm[Hg] [facility] Height 2023-05-20 00:00:00 63 [in_i] [facility] BP Systolic 2023-05-09 00:00:00 127 mm[Hg] [facility] Body Weight 2023-05-09 00:00:00 234.5 [lb_av] [facility] BP Diastolic 2023-05-09 00:00:00 90 mm[Hg] [facility] BMI (Body Mass Index) 2023-05-09 00:00:00 41.5 kg/m2 [facility] Height 2023-05-09 00:00:00 63 [in_i] [facility] BMI (Body Mass Index) 2023-04-25 00:00:00 41.9 kg/m2 [facility] Body Weight 2023-04-25 00:00:00 236.3 [lb_av] [facility] BP Systolic 2023-04-25 00:00:00 178 mm[Hg] [facility] Height 2023-04-25 00:00:00 63 [in_i] [facility] BP Diastolic 2023-04-25 00:00:00 104 mm[Hg] [facility] BMI (Body Mass Index) 2023-03-28 00:00:00 40.9 kg/m2 [facility] BP Systolic 2023-03-28 00:00:00 135 mm[Hg] [facility] Body Weight 2023-03-28 00:00:00 231 [lb_av] [facility] Height 2023-03-28 00:00:00 63 [in_i] [facility] BP Diastolic 2023-03-28 00:00:00 91 mm[Hg] [facility] BP Diastolic 2023-03-10 00:00:00 105 mm[Hg] [facility] BP Systolic 2023-03-10 00:00:00 151 mm[Hg] [facility] BMI (Body Mass Index) 2023-03-10 00:00:00 43.8 kg/m2 [facility] Body Weight 2023-03-10 00:00:00 247 [lb_av] [facility] Height 2023-03-10 00:00:00 63 [in_i] [facility] BMI (Body Mass Index) 2023-03-07 00:00:00 43.6 kg/m2 [facility] BP Diastolic 2023-03-07 00:00:00 81 mm[Hg] [facility] Body Weight 2023-03-07 00:00:00 246 [lb_av] [facility] Height 2023-03-07 00:00:00 63 [in_i] [facility] BP Systolic 2023-03-07 00:00:00 132 mm[Hg] [facility] Body Weight 2023-03-03 00:00:00 243 [lb_av] [facility] BMI (Body Mass Index) 2023-03-03 00:00:00 43 kg/m2 [facility] Height 2023-03-03 00:00:00 63 [in_i] [facility] BP Systolic 2023-03-03 00:00:00 131 mm[Hg] [facility] BP Diastolic 2023-03-03 00:00:00 89 mm[Hg] [facility] BP Diastolic 2023-02-28 00:00:00 91 mm[Hg] [facility] Height 2023-02-28 00:00:00 63 [in_i] [facility] Body Weight 2023-02-28 00:00:00 244 [lb_av] [facility] BMI (Body Mass Index) 2023-02-28 00:00:00 43.2 kg/m2 [facility] BP Systolic 2023-02-28 00:00:00 141 mm[Hg] [facility] BP Systolic 2023-02-24 00:00:00 160 mm[Hg] [facility] BMI (Body Mass Index) 2023-02-24 00:00:00 43.5 kg/m2 [facility] Body Weight 2023-02-24 00:00:00 245.7 [lb_av] [facility] BP Diastolic 2023-02-24 00:00:00 108 mm[Hg] [facility] Height 2023-02-24 00:00:00 63 [in_i] [facility] BMI (Body Mass Index) 2023-02-10 00:00:00 43 kg/m2 [facility] BP Systolic 2023-02-10 00:00:00 136 mm[Hg] [facility] Height 2023-02-10 00:00:00 63 [in_i] [facility] Body Weight 2023-02-10 00:00:00 242.8 [lb_av] [facility] BP Diastolic 2023-02-10 00:00:00 98 mm[Hg] [facility] Heart rate 2023-02-07 03:30:00 100 /min [facility] Oxygen saturation in Arterial blood by Pulse oximetry 2023-02-07 03:30:00 94 /min [facility] Systolic blood pressure 2023-02-07 03:13:00 112 mm[Hg] [facility] Diastolic blood pressure 2023-02-07 03:13:00 69 mm[Hg] [facility] Body temperature 2023-02-07 02:21:00 36.89 [facility] Respiratory rate 2023-02-07 02:21:00 18 /min [facility] Body height 2023-02-07 02:21:00 157.5 cm [facility] Body weight 2023-02-07 02:21:00 112.038 kg [facility] BMI 2023-02-07 02:21:00 45.18 kg/m2 [facility] BMI (Body Mass Index) 2023-01-27 00:00:00 44.1 kg/m2 [facility] BP Diastolic 2023-01-27 00:00:00 91 mm[Hg] [facility] Body Weight 2023-01-27 00:00:00 249.2 [lb_av] [facility] Height 2023-01-27 00:00:00 63 [in_i] [facility] BP Systolic 2023-01-27 00:00:00 153 mm[Hg] [facility] BP Diastolic 2022-12-30 00:00:00 90 mm[Hg] [facility] Height 2022-12-30 00:00:00 63 [in_i] [facility] BP Systolic 2022-12-30 00:00:00 147 mm[Hg] [facility] Body Weight 2022-12-30 00:00:00 253.2 [lb_av] [facility] BP Diastolic 2022-12-10 00:00:00 81 mm[Hg] [facility] Height 2022-12-10 00:00:00 63 [in_i] [facility] BMI (Body Mass Index) 2022-12-10 00:00:00 44.9 kg/m2 [facility] BP Systolic 2022-12-10 00:00:00 131 mm[Hg] [facility] Body Weight 2022-12-10 00:00:00 253.7 [lb_av] [facility] BP Diastolic 2022-11-11 00:00:00 87 mm[Hg] [facility] Height 2022-11-11 00:00:00 63 [in_i] [facility] BMI (Body Mass Index) 2022-11-11 00:00:00 45.2 kg/m2 [facility] BP Systolic 2022-11-11 00:00:00 139 mm[Hg] [facility] Body Weight 2022-11-11 00:00:00 255 [lb_av] [facility] BP Diastolic 2022-10-13 00:00:00 78 mm[Hg] [facility] Height 2022-10-13 00:00:00 63 [in_i] [facility] BMI (Body Mass Index) 2022-10-13 00:00:00 46.8 kg/m2 [facility] BP Systolic 2022-10-13 00:00:00 125 mm[Hg] [facility] Body Weight 2022-10-13 00:00:00 264.1 [lb_av] [facility] BP Diastolic 2022-09-14 00:00:00 83 mm[Hg] [facility] Height 2022-09-14 00:00:00 63 [in_i] [facility] BMI (Body Mass Index) 2022-09-14 00:00:00 45.8 kg/m2 [facility] BP Systolic 2022-09-14 00:00:00 146 mm[Hg] [facility] Body Weight 2022-09-14 00:00:00 258.4 [lb_av] [facility] BP Diastolic 2022-08-24 00:00:00 83 mm[Hg] [facility] Height 2022-08-24 00:00:00 63 [in_i] [facility] BMI (Body Mass Index) 2022-08-24 00:00:00 47.7 kg/m2 [facility] BP Systolic 2022-08-24 00:00:00 136 mm[Hg] [facility] Body Weight 2022-08-24 00:00:00 269.5 [lb_av] [facility] Height 2022-08-09 00:00:00 63 [in_i] [facility] BMI (Body Mass Index) 2022-08-09 00:00:00 47.6 kg/m2 [facility] BP Systolic 2022-08-09 00:00:00 140 mm[Hg] [facility] Body Weight 2022-08-09 00:00:00 268.5 [lb_av] [facility] BP Diastolic 2022-08-09 00:00:00 94 mm[Hg] [facility] Systolic blood pressure 2021-06-10 02:00:00 142 mm[Hg] [facility] Diastolic blood pressure 2021-06-10 02:00:00 101 mm[Hg] [facility] Heart rate 2021-06-10 02:00:00 113 /min [facility] Body temperature 2021-06-10 02:00:00 37.61 [facility] Body height 2021-06-10 02:00:00 160 cm [facility] Body weight 2021-06-10 02:00:00 122.046 kg [facility] BMI 2021-06-10 02:00:00 47.66 kg/m2 [facility] Oxygen saturation in Arterial blood by Pulse oximetry 2021-06-10 02:00:00 96 /min [facility] BP Diastolic 2020-12-25 00:00:00 99 mm[Hg] [facility] Height 2020-12-25 00:00:00 63 [in_i] [facility] BMI (Body Mass Index) 2020-12-25 00:00:00 46.1 kg/m2 [facility] BP Systolic 2020-12-25 00:00:00 150 mm[Hg] [facility] Body Weight 2020-12-25 00:00:00 4168 [oz_av] [facility] Procedures Procedure Date / Time Performed Performing Clinician Source Tubal Ligation (Surg) 2023-04-27 00:00:00 [facility] US(FBP)W/0 NON STRESS TEST 2023-03-10 00:00:00 [facility] US(FBP)W/0 NON STRESS TEST 2023-03-07 00:00:00 [facility] US(FBP)W/0 NON STRESS TEST 2023-03-03 00:00:00 [facility] US(FBP)W/0 NON STRESS TEST 2023-02-28 00:00:00 [facility] US, obstetric, limited 2023-02-24 00:00:00 [facility] US(FBP)W/0 NON STRESS TEST 2023-02-24 00:00:00 [facility] US(FBP)W/0 NON STRESS TEST 2023-02-10 00:00:00 [facility] POCT GLUCOSE (AUTOMATED) 2023-02-07 03:30:00 Thomas Montano [facility] ASSIGNMENT OF BENEFITS 2023-02-07 02:11:59 Docto r Unassigned, [place] [facility] NOTICE OF PRIVACY PRACTICES 2023-02-07 02:11:34 Doctor Unassigned, [place] [facility] CONSENT/REFUSAL FOR DIAGNOSIS AND TREATMENT 2023-02-07 02:11:11 Doctor Unassigned, [place] [facility] US, obstetric, limited 2023-01-27 00:00:00 [facility] ULTRASOUND REPEAT 2022-12-30 00:00:00 [facility] ULTRASOUND, UTERUS REAL TIME WITH IMAGE DOC, AND MATERNAL EVAL PLUS DETAILED ANATOMIC EXAMINATION, TRANSABDOMINAL APPROACH; SINGLE OR FIRST GESTATION 2022-11-11 00:00:00 [facility] US, obstetric, limited 2022-10-13 00:00:00 [facility] US, obstetric, limited 2022-09-14 00:00:00 [facility] US, obstetric, limited 2022-08-24 00:00:00 [facility] ULTRASOUND, UTERUS REAL TIME WITH IMAGE DOCUMENTAITON, TRANSVAGINAL 2022-08-09 00:00:00 [facility] I&d Abscess Subfascial 2017-04-13 00:00:00 [facility] Dilation and Curettage 2008-06-13 00:00:00 [facility] Dilation and Curettage 2003-06-13 00:00:00 [facility] Dilation and Curettage 1998-06-13 00:00:00 [facility] Plan of Care Planned Activity Planned Date Details Comments Source Diagnostic Test Pending 2023-05-09 00:00:00 urinalysis, dipstick [code = urinalysis, dipstick] [facility] Instructions [facility] Encounters Start Date/Time End Date/Time Encounter Type Admission Type Attending [facility] Facility Care Department Encounter ID Source 2023-02-24 00:00:00 Inpatient ENDER NINO [facility] [id number] [facility] 2023-02-06 23:29:53 Outpatient X [facility] RONALDO [id number] [facility] 2023-06-15 00:00:00 2023-06-15 00:00:00 Outpatient G_Pappas [facility]G [id number] [facility] 2023-05-20 00:00:00 2023-05-20 00:00:00 Ender Malone MD: [address] [place] [address], [place] [id number] , Ph. [phone] [facility] [id number] [facility] 2023-05-14 00:00:00 2023-05-14 00:00:00 Outpatient G_Pappas MMG MMG [id number] [facility] 2023-05-14 00:00:00 2023-05-14 00:00:00 Outpatient G_Pappas MMG MMG [id number] [facility] 2023-05-11 00:00:00 2023-05-11 00:00:00 Outpatient G_Pappas MMG MMG [id number] [facility] 2023-05-09 00:00:00 2023-05-09 00:00:00 Ender Malone MD: [address] [place] [address], [address], [place] [address] , Ph. [phone] [facility] [id number] [facility] 2023-05-03 00:00:00 2023-05-03 00:00:00 Outpatient G_Pappas MMG MMG [id number] [facility] 2023-04-27 06:00:00 2023-04-27 06:00:00 Outpatient HAYDEN MALONE ENDER [facility] [id number] [facility] 2023-04-25 00:00:00 2023-04-25 00:00:00 Ender Malone MD: [address], [address] [address] , Ph. [phone] [facility] [id number] [facility] 2023-04-07 00:00:00 2023-04-07 00:00:00 Outpatient G_Pappas MMG MMG [id number] [facility] 2023-04-02 00:00:00 2023-04-02 00:00:00 Outpatient G_Pappas MMG MMG [id number] [facility] 2023-03-28 11:03:00 2023-03-28 11:03:00 Outpatient HAYDEN MALONEENDER [facility] [id number] [facility] 2023-03-28 00:00:00 2023-03-28 00:00:00 Outpatient G_Pappas MMG MMG [id number] [facility] 2023-03-28 00:00:00 2023-03-28 00:00:00 Ender Malone MD: [address], [address], [place] [address] , Ph. [phone] [facility] [id number] [facility] 2023-03-14 04:46:00 2023-03-15 20:25:00 Inpatient HAYDEN MALONEENDER [facility] [id number] [facility] 2023-03-10 00:00:2023-03-10 00:00:00 Outpatient G_Pappas MMG MMG [id number] [facility] 2023-03-10 00:00:00 2023-03-10 00:00:00 Ender Malone MD: [address], [address], [place] [address] , Ph. [phone] MM[facility] [id number] [facility] 2023-03-07 00:00:00 2023-03-07 00:00:00 Ender Malone MD: [address], [address], [place] [address] , Ph. [phone] [facility] [id number] [facility] 2023-03-05 00:00:00 2023-03-05 00:00:00 Outpatient G_Pappas MMG MMG [id number] [facility] 2023-03-03 00:00:00 2023-03-03 00:00:00 Outpatient G_Pappas MMG MMG [id number] [facility] 2023-03-03 00:00:00 2023-03-03 00:00:00 Ender Malone MD: [address], [address], [place] [address] , Ph. [phone] [facility] [id number] [facility] 2023-02-28 09:42:00 2023-02-28 09:42:00 Outpatient ENDER NINO [facility] [id number] [facility] 2023-02-28 00:00:00 2023-02-28 00:00:00 Ender Malone MD: [address], [address], [place] [address] , Ph. [phone] [facility] [id number] [facility] 2023-02-24 00:00:00 2023-02-24 00:00:00 Outpatient G_Pappas MM[facility] MM [id number] [facility] 2023-02-24 00:00:00 2023-02-24 00:00:00 Outpatient G_Pappas MMG MMG [id number] [facility] 2023-02-24 00:00:00 2023-02-24 00:00:00 Ender Malone MD: [address], [address], [place] [address] , Ph. [phone] MM[facility] [id number] [facility] 2023-02-18 00:00:00 2023-02-18 00:00:00 Outpatient G_Pappas MMG [facility] [id number] [facility] 2023-02-10 00:00:00 2023-02-10 00:00:00 Ender Malone MD: [address], [address], [place] [address] , Ph. [phone] [facility] [id number] [facility] 2023-02-06 21:24:00 2023-02-06 22:56:00 Outpatient X THOMAS MONTANO [facility] RONALDO [id number] [facility] 2023-02-06 21:24:00 2023-02-06 22:56:00 Emergency Thomas Montano [facility] 1.2.840.114 350.1.13.10 4.2.7.2.[id number] [facility] 2023-02-06 00:00:00 2023-02-06 00:00:00 Orders Only Doctor Unassigned, [place] [facility] 1.2.840.114 350.1.13.10 4.2.7.2.[id number] [facility] 2023-02-05 00:00:00 2023-02-05 00:00:00 Outpatient G_Pappas MMG MMG [id number] [facility] 2023-01-27 00:00:00 2023-01-27 00:00:00 Outpatient G_Pappas MMG MMG [id number] [facility] 2023-01-27 00:00:00 2023-01-27 00:00:00 Ender Malone MD: [address], [address], [place] [address] , Ph. [phone] MMG [facility] OBGYN [id number] [facility] 2023-01-19 04:15:00 2023-01-19 07:48:00 emergency [id number] 2023-01-19 04:15:00 2023-01-19 07:48:00 Emergency HAYDEN MENDEZ GARCIA [facility] [id number] [facility] 2023-01-14 00:00:00 2023-01-14 00:00:00 Outpatient G_Pappas MMG MMG [id number] [facility] 2022-12-30 09:35:00 2022-12-30 09:35:00 Outpatient ENDER NINO [facility] [id number] [facility] 2022-12-30 00:00:00 2022-12-30 00:00:00 Ender Malone MD: [address] [place] [address], [address], [place] [address] , Ph. [phone] [facility] [id number] [facility] 2022-12-10 00:00:00 2022-12-10 00:00:00 Outpatient G_Pappas MMG MMG [id number] [facility] 2022-12-10 00:00:00 2022-12-10 00:00:00 Outpatient G_Pappas MMG MMG [id number] [facility] 2022-12-10 00:00:00 2022-12-10 00:00:00 Garcia Mendez MD: [address] [place] [address], [address], [place] [address] , Ph. [phone] [facility] [id number] [facility] 2022-12-06 00:00:00 2022-12-06 00:00:00 Outpatient G_Pappas MMG MMG [id number] [facility] 2022-11-22 21:50:00 2022-11-23 00:05:00 Emergency ER GARCIA MENDEZ [facility] [id number] [facility] 2022-11-11 09:30:00 2022-11-11 09:30:00 Outpatient ENDER NINO [facility] [id number] [facility] 2022-11-11 00:00:00 2022-11-11 00:00:00 Ender Malone MD: [address] [place] [address], [address] [address] , Ph. [phone] [facility] [id number] [facility] 2022-11-10 00:00:00 2022-11-10 00:00:00 Outpatient G_Pappas MMG MMG [id number] [facility] 2022-11-10 00:00:00 2022-11-10 00:00:00 Outpatient G_Pappas MMG MMG [id number] [facility] 2022-11-01 00:00:00 2022-11-01 00:00:00 Outpatient G_Pappas MMG MMG [id number] [facility] 2022-10-13 00:00:00 2022-10-13 00:00:00 Helen Ivan REGULATORY SCIENTIST-BC: [address], [address], [place] [address] , Ph. [phone] [facility] [id number] [facility] 2022-09-27 00:00:00 2022-09-27 00:00:00 Outpatient G_Pappas MMG MMG [id number] [facility] 2022-09-27 00:00:00 2022-09-27 00:00:00 Outpatient G_Pappas MMG MMG [id number] [facility] 2022-09-14 00:00:00 2022-09-14 00:00:00 Ender Malone MD: [address], [address], [place] [address] , Ph. [phone] MM[facility] [id number] [facility] 2022-08-31 00:00:00 2022-08-31 00:00:00 Outpatient G_Pappas MMG MMG [id number] [facility] 2022-08-24 00:00:00 2022-08-24 00:00:00 Outpatient G_Pappas MMG MMG [id number] [facility] 2022-08-24 00:00:00 2022-08-24 00:00:00 Ender Malone MD: [address], [address], [place] [address] , Ph. [phone] MMG [facility] [id number] [facility] 2022-08-23 00:00:00 2022-08-23 00:00:00 Outpatient G_Pappas MMG MMG [id number] [facility] 2022-08-09 15:41:00 2022-08-09 15:41:00 Outpatient ENDER NINO [facility] [id number] [facility] 2022-08-09 00:00:00 2022-08-09 00:00:00 Outpatient Rush_Elijahkrzysztof [facility] [id number] [facility] 2022-08-09 00:00:00 2022-08-09 00:00:00 Ender Malone MD: [address], [address], [place] [address] , Ph. [phone] MMG [facility] OBGYN [id number] [facility] 2022-08-06 00:00:00 2022-08-06 00:00:00 Outpatient A_Byrd [facility] [id number] [facility] 2021-06-09 20:00:00 2021-06-09 20:30:09 Outpatient Kenan COLEMAN LOLITA [facility] [id number] [facility] 2021-06-09 20:00:00 2021-06-09 20:30:09 Urgent Care Kerrie Brown [facility] .2.840.114 350.1.13.10 4.2.7.2.[id number] [facility] 2021-06-09 20:00:00 2021-06-09 20:30:09 Outpatient Kenan COLEMAN LOLITA [facility] [id number] [facility] 2021-06-07 00:00:00 2021-06-07 00:00:00 Telephone Sophia Jacobsen [facility] .2.840.114 350.1.13.10 4.2.7.2.[id number] [facility] 2021-06-04 14:40:00 2021-06-04 15:47:35 Outpatient TIA STANLEY [facility] [id number] [facility] 2021-06-04 14:40:00 2021-06-04 15:00:00 Urgent Care Tia Tejeda Unknown, Attending [facility] 1.2.840.114 350.1.13.10 4.2.7.2.[id number] [facility] 2021-06-04 14:40:00 2021-06-04 14:40:00 Outpatient R UNKNOWN, ATTENDING [facility] [id number] [facility] 2021-04-29 11:02:00 2021-04-29 11:02:00 Outpatient A_Byrd [facility] [id number] [facility] 2021-04-09 01:57:00 2021-04-09 01:57:00 Outpatient A_Byrd [facility] [id number] [facility] 2021-03-05 01:40:00 2021-03-05 01:40:00 Outpatient A_Byrd [facility] [id number] [facility] 2021-02-11 00:13:00 2021-02-11 00:13:00 Outpatient HAYDEN SHADE RENEE [facility] [id number] [facility] 2021-01-29 01:31:00 2021-01-29 01:31:00 Outpatient A_Byrd [id number] [facility] 2021-01-13 07:05:00 2021-01-13 07:50:00 Emergency ER ARNIE MOSHER [facility] [id number] [facility] 2020-12-25 04:46:00 2020-12-25 04:46:00 Outpatient A_Byrd MM[facility] 15 [facility] 2020-12-25 04:46:00 2020-12-25 04:46:00 Outpatient A_Byrd MM[facility] [id number] [facility] 2020-12-25 00:00:00 2020-12-25 00:00:00 Gisela Young MD: [address] [place] [address] [address], [place] [address] , Ph. [facility] [id number] [facility] 2020-12-24 04:06:00 2020-12-24 04:06:00 Outpatient G_Pappas [facility] [id number] [facility] 2020-12-17 00:00:00 2020-12-17 00:00:00 Refill Doctor Unassigned, [place] [facility] One .0.114 350.1.13.10 4.2.7.2.686 [id number] 2020-12-17 00:00:00 2020-12-17 00:00:00 Refill Keshia Red [facility] .0.114 350.1.13.10 4.2.7.2.686 [id number] 2020-12-17 00:00:00 2020-12-17 00:00:00 Refill Doctor Unassigned, [place] [facility] .0.114 350.1.13.10 4.2.7.2.[id number] [facility] 2020-12-17 00:00:00 2020-12-17 00:00:00 Refill Keshia Red [facility] .0.114 350.1.13.10 4.2.7.2.[id number] [facility] 2020-09-01 00:00:00 2020-09-01 00:00:00 Patient Outreach Tesfaye De La O [facility] .0.114 350.1.13.10 4.2.7.2.686 [id number] 2020-09-01 00:00:00 2020-09-01 00:00:00 Patient Outreach Tesfaye De La O [facility] 1.2840.114 350.1.13.10 4.2.7.2.[id number] [facility] 2020-04-30 02:19:00 2020-04-30 02:19:00 Outpatient [facility]appas [facility] [id number] [facility] 2020-04-30 02:19:00 2020-04-30 02:19:00 Outpatient G_Pappas MMG MMG [id number] [facility] 2020-02-08 00:00:00 2020-02-08 00:00:00 Refill TeofiloKeshia [facility] 1.840.114 350.1.13.10 4.2.7.2.686 [id number] 2020-02-08 00:00:00 2020-02-08 00:00:00 Refill Leonardo Juan A [facility] 1.840.114 350.1.13.10 4.2.7.2.686 [id number] 2020-02-08 00:00:00 2020-02-08 00:00:00 Refill TeofiloKeshia willson [facility] .840.114 350.1.13.10 4.2.7.2.[id number] [facility] 2020-02-08 00:00:00 2020-02-08 00:00:00 Refill Leonardo, Juan A [facility] 1.840.114 350.1.13.10 4.2.7.2.[id number] [facility] 2020-01-06 00:00:00 2020-01-06 00:00:00 Refill Juan A Leonadro [facility] 1.2.840.114 350.1.13.10 4.2.7.2.686 [id number] 2020-01-06 00:00:00 2020-01-06 00:00:00 Refill Juan A Leonardo [facility] 1.2.840.114 350.1.13.10 4.2.7.2.[id number] [facility] 2019-11-20 00:00:00 2019-11-20 00:00:00 Refill Keshia Red [facility] 1.2840.114 350.1.13.10 4.2.7.2.686 [id number] 2019-11-20 00:00:00 2019-11-20 00:00:00 Refill Keshia Red [facility] 1.840.114 350.1.13.10 4.2.7.2.[id number] [facility] 2019-08-01 13:23:59 2019-08-01 14:46:46 Office Visit Keshia Red [facility] 1.2840.114 350.1.13.10 4.2.7.2.686 [id number] 2019-08-01 13:23:59 2019-08-01 14:46:46 Office Visit Keshia Red [facility] 1.2840.114 350.1.13.10 4.2.7.2.[id number] [facility] 2019-08-01 00:00:00 2019-08-01 00:00:00 Orders Only Doctor Unassigned, [place] [facility] 1.2.840.114 350.1.13.10 4.2.7.2.[id number] [facility] 2018-10-13 03:35:00 2018-10-13 05:09:00 Emergency ER GOPI DOMINGUEZ [facility] [id number] [facility] 2017-03-18 09:55:00 2017-03-18 09:55:00 Outpatient GISELA MCKEON [facility] [id number] [facility] 2017-03-11 09:27:00 2017-03-11 09:27:00 Outpatient GISELA MCKEON [facility] [id number] [facility] 2016-09-10 14:49:00 2016-09-10 14:49:00 Outpatient GISELA MCKEON [facility] [id number] [facility] 2013-06-25 09:54:00 2013-06-26 15:55:00 Inpatient EL ORTIZENDER Ayala [facility] [id number] [facility] 2013-06-22 12:07:00 2013-06-24 03:26:00 Inpatient EL ORTIZENDER [facility] [id number] [facility] 2013-05-23 14:53:00 2013-05-23 16:50:00 Emergency ER ORTIZENDER Ayala [facility] [id number] [facility] 2009-02-21 04:49:00 2009-02-22 16:30:00 Inpatient EL ORTIZENDER Ayala [facility] [id number] [facility] 2008-10-10 00:40:00 2008-10-10 14:05:00 Inpatient ER ORTIZENDER Ayala [facility] [id number] [facility] Results Test Description Test Time Test Comments Results Result Co mments Source [facility] [id number] 12:03:00* Test Item Value Reference Range Interpretation Comme nts glucose (test code = glucose) 101 mg/dL 74-106 blood urea nitrogen (test co de = blood urea nitrogen) 7 mg/dL 6-20 osmolality calculated,serum (test code = osmolality calculated,serum) 272 mOsm/kg 280-300 L creatinine (test code = creatinine) 0.61 mg/dL 0.50-0.90 glomerular filtration rate ( test code = glomerular filtration rate) > 60.00 BUN/creatinine ratio (test c ode = BUN/creatinine ratio) 11.5 12.0-20.0 L sodium level (test code = so dium level) 137 mmol/L 135-145 potassium level (test code = potassium level) 4.2 mmol/L 3.5-5.2 chloride level (test code = chloride level) 102 mmol/L 98-108 CO2 (test code = CO2) 26 mmol/L 21-32 anion gap (test code = anion gap) 13.2 mEq/L 12.0-20.0 calcium level (test code = calcium level) 9.0 mg/dL 8.6-10.0 [facility] W Auto Differential panel - [id number] 11:30:00 * Test Item Value Reference Range Interpretation Comme [facility] white blood count (test code = white blood count) 7.7 K/uL 4.0-11.5 red blood count (test code = red blood count) 4.26 M/uL 3.80-5.20 hemoglobin (test code = hemoglobin) 12.1 g/dL 10.5-15.7 hematocrit (test code = hematocrit) 37.4 % 34.0-50.0 mean corpuscular volume (kate t code = mean corpuscular volume) 87.8 fL 86.0-100.0 mean corpuscular hemoglobin (test code = mean corpuscular hemoglobin) 28.4 pg 26.2-33.4 mean corpuscular HGB conc (t est code = mean corpuscular HGB conc) 32.4 g/dL 30.0-34.0 red cell distribution width (test code = red cell distribution width) 15.1 % 12.0-15.5 platelet count (test code = platelet count) 284 K/uL 165-450 mean platelet volume (test c ode = mean platelet volume) 8.9 fL 9.4-12.6 L neutrophils % (test code = neutrophils %) 64.7 % 44.4-80.1 Ig% (test code = Ig%) 0.4 % 0.0-0.4 lymphocyte% (test code = lymphocyte%) 28.2 % 10.0-50.0 mono % (test code = mono %) 4.2 % 3.6-12.0 eos % (test code = eos %) 2.2 % 0.0-5.4 basophil % (test code = baso chris %) 0.3 % 0.1-1.2 absolute neutrophil count (t est code = absolute neutrophil count) 4.97 K/uL 1.56-6.13 Ig# (test code = Ig#) 0.03 K/uL 0.00-0.03 lymph # (test code = lymph #) 2.16 K/uL 1.18-3.74 mono # (test code = mono #) 0.32 K/uL 0.24-0.86 eos # (test code = eos #) 0.17 K/uL 0.04-0.36 basophil # (test code = baso chris #) 0.02 K/uL 0.01-0.08 NRBC% (test code = NRBC%) 0 /100 WBC 0-0.2 NRBC# (test code = NRBC#) 0 K/uL [facility] (dipstick) panel - [id number] 10:16:28* Test Item Value Reference Range Interpretation Comme nts Leukocytes (test code = Leukocytes) Small Nitrite (test code = Nitrite) negative Urobilinogen (test code = Urobilinogen) .2 Protein (test code = Protein) Negative pH (test code = pH) 6.0 Blood (test code = Blood) Negative Specific [place] (test code = Specific [place]) 1.020 Ketone (test code = Ketone) Negative Bilirubin (test code = Bilirubin) Negative Glucose (test code = Glucose) Negative Appearance (test code = Appearance) Clear Color (test code = Color) Yellow [facility], [id number] 10:11:51* Test Item Value Reference Range Interpretation Comme nts Test (test code = Test) negative [facility] [id number] 12:45:00* Test Item Value Reference Range Interpretation Comme [facility] Hemoglobin A1c/Hemoglobin.to dago in Blood (test code = 4548-4) 6.1 % 4.0-6.0 H [facility]inal[facility] macro (dipstick) panel - [id number] 09:50:43* Test Item Value Reference Range Interpretation Comme nts Leukocytes (test code = Leukocytes) Small Nitrite (test code = Nitrite) negative Urobilinogen (test code = Urobilinogen) .2 Protein (test code = Protein) 30 pH (test code = pH) 6.5 Blood (test code = Blood) Large Specific [place] (test code = Specific [place]) 1.025 Ketone (test code = Ketone) Negative Bilirubin (test code = Bilirubin) Negative Glucose (test code = Glucose) Negative Appearance (test code = Appearance) Clear Color (test code = Color) Yellow [facility] [id number] 22:43:00* Test Item Value Reference Range Interpretation Comme [facility] blood glucose monitoring (te st code = blood glucose monitoring) 95 mg/dL 70-110 [facility] [id number] 13:18:00* Test Item Value Reference Range Interpretation Comme [facility] blood glucose monitoring (te st code = blood glucose monitoring) 107 mg/dL 70.0-110 [facility] [id number] 08:20:00* Test Item Value Reference Range Interpretation Comme [facility] blood glucose monitoring (te st code = blood glucose monitoring) 76 mg/dL 70-110 [facility] W Auto Differential panel - [id number] 06:27:00 * Test Item Value Reference Range Interpretation Comme [facility] white blood count (test code = white blood count) 11.0 K/uL 4.0-11.5 red blood count (test code = red blood count) 3.53 M/uL 3.80-5.20 L hemoglobin (test code = hemoglobin) 10.2 g/dL 10.5-15.7 L hematocrit (test code = hematocrit) 31.0 % 34.0-50.0 L mean corpuscular volume (kate t code = mean corpuscular volume) 87.8 fL 86.0-100.0 mean corpuscular hemoglobin (test code = mean corpuscular hemoglobin) 28.9 pg 26.2-33.4 mean corpuscular HGB conc (t est code = mean corpuscular HGB conc) 32.9 g/dL 30.0-34.0 red cell distribution width (test code = red cell distribution width) 15.2 % 12.0-15.5 platelet count (test code = platelet count) 190 K/uL 165-450 mean platelet volume (test c ode = mean platelet volume) 10.0 fL 9.4-12.6 neutrophils % (test code = neutrophils %) 70.2 % 44.4-80.1 Ig% (test code = Ig%) 0.4 % 0.0-0.4 lymphocyte% (test code = lymphocyte%) 21.6 % 10.0-50.0 mono % (test code = mono %) 7.0 % 3.6-12.0 eos % (test code = eos %) 0.5 % 0.0-5.4 basophil % (test code = baso chris %) 0.3 % 0.1-1.2 absolute neutrophil count (t est code = absolute neutrophil count) 7.70 K/uL 1.56-6.13 H Ig# (test code = Ig#) 0.04 K/uL 0.00-0.03 H lymph # (test code = lymph #) 2.37 K/uL 1.18-3.74 mono # (test code = mono #) 0.77 K/uL 0.24-0.86 eos # (test code = eos #) 0.06 K/uL 0.04-0.36 basophil # (test code = baso chris #) 0.03 K/uL 0.01-0.08 NRBC% (test code = NRBC%) 0 /100 WBC 0-0.2 NRBC# (test code = NRBC#) 0 K/uL [facility]idian[facility] B surface [id number] 06:12:00* Test Item Value Reference Range Interpretation Comme nts .hepatitis B surface antigen (test code = .hepatitis B surface antigen) negative negative [facility] W Auto Differential panel - [id number] 01:24:00 * Test Item Value Reference Range Interpretation Comme nts white blood count (test code = white blood count) 12.5 K/uL 4.0-11.5 H red blood count (test code = red blood count) 3.46 M/uL 3.80-5.20 L hemoglobin (test code = hemoglobin) 9.8 g/dL 10.5-15.7 L hematocrit (test code = hematocrit) 30.0 % 34.0-50.0 L mean corpuscular volume (kate t code = mean corpuscular volume) 86.7 fL 86.0-100.0 mean corpuscular hemoglobin (test code = mean corpuscular hemoglobin) 28.3 pg 26.2-33.4 mean corpuscular HGB conc (t est code = mean corpuscular HGB conc) 32.7 g/dL 30.0-34.0 red cell distribution width (test code = red cell distribution width) 15.0 % 12.0-15.5 platelet count (test code = platelet count) 200 K/uL 165-450 mean platelet volume (test c ode = mean platelet volume) 10.6 fL 9.4-12.6 neutrophils % (test code = neutrophils %) 77.6 % 44.4-80.1 Ig% (test code = Ig%) 0.6 % 0.0-0.4 H lymphocyte% (test code = lymphocyte%) 15.1 % 10.0-50.0 mono % (test code = mono %) 6.1 % 3.6-12.0 eos % (test code = eos %) 0.4 % 0.0-5.4 basophil % (test code = baso chris %) 0.2 % 0.1-1.2 absolute neutrophil count (t est code = absolute neutrophil count) 9.70 K/uL 1.56-6.13 H Ig# (test code = Ig#) 0.07 K/uL 0.00-0.03 H lymph # (test code = lymph #) 1.89 K/uL 1.18-3.74 mono # (test code = mono #) 0.76 K/uL 0.24-0.86 eos # (test code = eos #) 0.05 K/uL 0.04-0.36 basophil # (test code = baso chris #) 0.02 K/uL 0.01-0.08 NRBC% (test code = NRBC%) 0 /100 WBC 0-0.2 NRBC# (test code = NRBC#) 0 K/uL [facility]Rh immune globulin screen [interpretation]2023-03-15 00:11:00* Test Item Value Reference Range Interpretation Comme nts antibody screen (test code = antibody screen) negative blood type (test code = blood type) an fs (test code = fs) negative [facility] [id number] 22:21:00* Test Item Value Reference Range Interpretation Comme nts blood glucose monitoring (te st code = blood glucose monitoring) 125 mg/dL 70.0-110 H [facility] [id number] 15:31:00* Test Item Value Reference Range Interpretation Comme nts blood glucose monitoring (te st code = blood glucose monitoring) 71 mg/dL 70-110 [facility] [id number] 13:04:00* Test Item Value Reference Range Interpretation Comme nts blood glucose monitoring (te st code = blood glucose monitoring) 66 mg/dL 70-110 L [facility]idianRPR2023-10-02 12:38:00* Test Item Value Reference Range Interpretation Comme nts RPR (test code = RPR) nonreactive nonreactive [facility] [id number] 10:35:00* Test Item Value Reference Range Interpretation Comme nts blood glucose monitoring (te st code = blood glucose monitoring) 92 mg/dL 70-110 [facility] [id number] 08:23:00* Test Item Value Reference Range Interpretation Comme nts blood glucose monitoring (te st code = blood glucose monitoring) 96 mg/dL 70-110 [facility]idianhemoglobin [id number] 05:53:00* Test Item Value Reference Range Interpretation Comme nts Hemoglobin A1c/Hemoglobin.to dago in Blood (test code = 4548-4) 6.3 % 4.0-6.0 H [facility]idianCBC W Auto Differential panel - [id number] 05:34:00 * Test Item Value Reference Range Interpretation Comme nts white blood count (test code = white blood count) 10.8 K/uL 4.0-11.5 red blood count (test code = red blood count) 4.08 M/uL 3.80-5.20 hemoglobin (test code = hemoglobin) 11.7 g/dL 10.5-15.7 hematocrit (test code = hematocrit) 35.2 % 34.0-50.0 mean corpuscular volume (kate t code = mean corpuscular volume) 86.3 fL 86.0-100.0 mean corpuscular hemoglobin (test code = mean corpuscular hemoglobin) 28.7 pg 26.2-33.4 mean corpuscular HGB conc (t est code = mean corpuscular HGB conc) 33.2 g/dL 30.0-34.0 red cell distribution width (test code = red cell distribution width) 15.0 % 12.0-15.5 platelet count (test code = platelet count) 242 K/uL 165-450 mean platelet volume (test c ode = mean platelet volume) 10.5 fL 9.4-12.6 neutrophils % (test code = neutrophils %) 66.2 % 44.4-80.1 Ig% (test code = Ig%) 0.8 % 0.0-0.4 H lymphocyte% (test code = lymphocyte%) 24.9 % 10.0-50.0 mono % (test code = mono %) 6.9 % 3.6-12.0 eos % (test code = eos %) 0.9 % 0.0-5.4 basophil % (test code = baso chris %) 0.3 % 0.1-1.2 absolute neutrophil count (t est code = absolute neutrophil count) 7.13 K/uL 1.56-6.13 H Ig# (test code = Ig#) 0.09 K/uL 0.00-0.03 H lymph # (test code = lymph #) 2.68 K/uL 1.18-3.74 mono # (test code = mono #) 0.74 K/uL 0.24-0.86 eos # (test code = eos #) 0.10 K/uL 0.04-0.36 basophil # (test code = baso chris #) 0.03 K/uL 0.01-0.08 NRBC% (test code = NRBC%) 0 /100 WBC 0-0.2 NRBC# (test code = NRBC#) 0 K/uL [facility] Groupglucose [id number] 05:25:00* Test Item Value Reference Range Interpretation Comme nts blood glucose monitoring (te st code = blood glucose monitoring) 100 mg/dL 70.0-110 [facility] Grouptype and [id number] 05:22:00* Test Item Value Reference Range Interpretation Comme nts antibody screen (test code = antibody screen) negative blood type (test code = blood type) an [facility]idianGlucose [Mass/volume] in Capillary [id number] 15:48:58* Test Item Value Reference Range Interpretation Comme nts GLU (test code = GLU) 114 [facility]idianUrinalysis macro (dipstick) panel - [id number] 15:48:49* Test Item Value Reference Range Interpretation Comme nts Leukocytes (test code = Leukocytes) Negative Nitrite (test code = Nitrite) negative Urobilinogen (test code = Urobilinogen) .2 Protein (test code = Protein) 30 pH (test code = pH) 6.0 Blood (test code = Blood) Negative Specific [place] (test code = Specific [place]) 1.030 Ketone (test code = Ketone) Negative Bilirubin (test code = Bilirubin) Negative Glucose (test code = Glucose) 500 Appearance (test code = Appearance) Clear Color (test code = Color) Pale Yellow [facility]idian[facility]inalysis macro (dipstick) panel - [id number] 15:58:40* Test Item Value Reference Range Interpretation Comme nts Leukocytes (test code = Leukocytes) Negative Nitrite (test code = Nitrite) negative Protein (test code = Protein) 30 pH (test code = pH) 7.0 Blood (test code = Blood) Negative Specific [place] (test code = Specific [place]) 1.020 Ketone (test code = Ketone) Negative Bilirubin (test code = Bilirubin) Negative Glucose (test code = Glucose) 100 [facility]idianGlucose [Mass/volume] in Capillary [id number] 14:44:37* Test Item Value Reference Range Interpretation Comme nts GLU (test code = GLU) 121 [facility]idianGlucose [Mass/volume] in Capillary [id number] 16:37:02* Test Item Value Reference Range Interpretation Comme nts GLU (test code = GLU) 130 [facility]idianUrinalysis macro (dipstick) panel - [id number] 16:32:23* Test Item Value Reference Range Interpretation Comme nts Leukocytes (test code = Leukocytes) Negative Nitrite (test code = Nitrite) negative Urobilinogen (test code = Urobilinogen) .2 Protein (test code = Protein) 30 pH (test code = pH) 6.0 Blood (test code = Blood) Negative Specific [place] (test code = Specific [place]) 1.030 Ketone (test code = Ketone) Negative Bilirubin (test code = Bilirubin) Negative Glucose (test code = Glucose) 250 Appearance (test code = Appearance) Clear Color (test code = Color) Dark Yellow [facility]idianUrinalysis macro (dipstick) panel - [id number] 15:59:45* Test Item Value Reference Range Interpretation Comme nts Leukocytes (test code = Leukocytes) Negative Nitrite (test code = Nitrite) negative Urobilinogen (test code = Urobilinogen) .2 Protein (test code = Protein) 100 pH (test code = pH) 5.5 Blood (test code = Blood) Negative Specific [place] (test code = Specific [place]) 1.030 Ketone (test code = Ketone) Trace Bilirubin (test code = Bilirubin) Negative Glucose (test code = Glucose) 100 Appearance (test code = Appearance) Clear Color (test code = Color) Yellow [facility]idianGl[facility] [Mass/volume] in Capillary [id number] 15:58:40* Test Item Value Reference Range Interpretation Comme nts GLU (test code = GLU) 117 [facility]idianCreatinine renal clearance in 24 hour Urine and Serum or [id number] 10:51:00* Test Item Value Reference Range Interpretation Comme nts creatinine (test code = creatinine) 0.56 mg/dL 0.50-0.90 urine collection time (test code = urine collection time) 24 hours total volume, urine (test co de = total volume, urine) 1650 mL/24 HR creatinine, urine random (te st code = creatinine, urine random) 87.3 mg/dL 28-217 creatinine clearance, urine (test code = creatinine clearance, urine) 178.6 mL/min 88-128 H [facility]idianuric [id number] 10:50:00* Test Item Value Reference Range Interpretation Comme nts uric acid (test code = uric acid) 3.4 mg/dL 2.4-5.7 [facility]idianCom[facility] 2000 panel - Serum or Plasma 2023-02-28 10:50:00* Test Item Value Reference Range Interpretation Comme nts glucose (test code = glucose) 121 mg/dL 74-106 H blood urea nitrogen (test co de = blood urea nitrogen) 9 mg/dL 6-20 osmolality calculated,serum (test code = osmolality calculated,serum) 272 mOsm/kg 280-300 L creatinine (test code = creatinine) 0.56 mg/dL 0.50-0.90 glomerular filtration rate ( test code = glomerular filtration rate) > 60.00 BUN/creatinine ratio (test c ode = BUN/creatinine ratio) 16.1 12.0-20.0 sodium level (test code = so dium level) 136 mmol/L 135-145 potassium level (test code = potassium level) 3.8 mmol/L 3.5-5.2 chloride level (test code = chloride level) 103 mmol/L 98-108 CO2 (test code = CO2) 23 mmol/L 21-32 anion gap (test code = anion gap) 13.8 mEq/L 12.0-20.0 calcium level (test code = calcium level) 9.3 mg/dL 8.6-10.0 total protein (test code = t otal protein) 7.3 g/dL 6.6-8.7 albumin (test code = albumin) 3.5 g/dL 3.5-5.2 globulin (test code = globulin) 3.8 g/dL 1.5-4.5 A/G ratio (test code = A/G ratio) 0.9 >1.0 bilirubin,total (test code = bilirubin,total) < 0.2 0.0-1.2 AST/SGOT (test code = AST/SGOT) 12 U/L 15-32 L ALT/SGPT (test code = ALT/SGPT) 10 U/L 0-33 alkaline phosphatase, total (test code = alkaline phosphatase, total) 121 U/L 35-105 H [facility] GroupUrate [Mass/volume] in Serum or [id number] 10:50:00 * Test Item Value Reference Range Interpretation Comme nts uric acid (test code = uric acid) 3.4 mg/dL 2.4-5.7 [facility] Grouptotal protein,24 HR [id number] 10:37:00* Test Item Value Reference Range Interpretation Comme nts urine total protein (test co de = urine total protein) 20.9 mg/dL total protein 24 hour urine (test code = total protein 24 hour urine) 344.8 mg/day <149.1 [facility] GroupProtein [Mass/time] in 24 hour [id number] 10:37:00* Test Item Value Reference Range Interpretation Comme nts urine total protein (test co de = urine total protein) 20.9 mg/dL total protein 24 hour urine (test code = total protein 24 hour urine) 344.8 mg/day <149.1 [facility] W Auto Differential panel - [id number] 10:24:00 * Test Item Value Reference Range Interpretation Comme nts white blood count (test code = white blood count) 10.7 K/uL 4.0-11.5 red blood count (test code = red blood count) 4.34 M/uL 3.80-5.20 hemoglobin (test code = hemoglobin) 12.2 g/dL 10.5-15.7 hematocrit (test code = hematocrit) 37.6 % 34.0-50.0 mean corpuscular volume (kate t code = mean corpuscular volume) 86.6 fL 86.0-100.0 mean corpuscular hemoglobin (test code = mean corpuscular hemoglobin) 28.1 pg 26.2-33.4 mean corpuscular HGB conc (t est code = mean corpuscular HGB conc) 32.4 g/dL 30.0-34.0 red cell distribution width (test code = red cell distribution width) 14.4 % 12.0-15.5 platelet count (test code = platelet count) 247 K/uL 165-450 mean platelet volume (test c ode = mean platelet volume) 10.0 fL 9.4-12.6 neutrophils % (test code = neutrophils %) 67.9 % 44.4-80.1 Ig% (test code = Ig%) 0.9 % 0.0-0.4 H lymphocyte% (test code = lymphocyte%) 24.3 % 10.0-50.0 mono % (test code = mono %) 6.0 % 3.6-12.0 eos % (test code = eos %) 0.5 % 0.0-5.4 basophil % (test code = baso chris %) 0.4 % 0.1-1.2 absolute neutrophil count (t est code = absolute neutrophil count) 7.26 K/uL 1.56-6.13 H Ig# (test code = Ig#) 0.10 K/uL 0.00-0.03 H lymph # (test code = lymph #) 2.59 K/uL 1.18-3.74 mono # (test code = mono #) 0.64 K/uL 0.24-0.86 eos # (test code = eos #) 0.05 K/uL 0.04-0.36 basophil # (test code = baso chris #) 0.04 K/uL 0.01-0.08 NRBC% (test code = NRBC%) 0 /100 WBC 0-0.2 NRBC# (test code = NRBC#) 0 K/uL [facility]idianGlucose [Mass/volume] in Capillary [id number] 11:14:58* Test Item Value Reference Range Interpretation Comme nts GLU (test code = GLU) 119 [facility]idianUrinalysis macro (dipstick) panel - [id number] 11:14:38* Test Item Value Reference Range Interpretation Comme nts Leukocytes (test code = Leukocytes) Negative Nitrite (test code = Nitrite) negative Urobilinogen (test code = Urobilinogen) .2 Protein (test code = Protein) 100 pH (test code = pH) 6.0 Blood (test code = Blood) Negative Specific [place] (test code = Specific [place]) 1.030 Ketone (test code = Ketone) Trace Bilirubin (test code = Bilirubin) Negative Glucose (test code = Glucose) 250 Appearance (test code = Appearance) Clear Color (test code = Color) [facility] [id number] 00:00:00* Test Item Value Reference Range Interpretation Comme nts CT/NG (test code = CT/NG) normal trichomonas vaginalis addon - swab (test code = trichomonas vaginalis addon - swab) normal [facility] Groupculture, vaginal/rectal, streptococcus group [id number] 00:00:00* Test Item Value Reference Range Interpretation Comme nts group B strep (test code = g roup B strep) negative [facility]idianGlucose [Mass/volume] in Capillary [id number] 11:28:16* Test Item Value Reference Range Interpretation Comme nts GLU (test code = GLU) 77 [facility]idianUrinalysis macro (dipstick) panel - [id number] 11:22:45* Test Item Value Reference Range Interpretation Comme nts Leukocytes (test code = Leukocytes) Negative Nitrite (test code = Nitrite) negative Urobilinogen (test code = Urobilinogen) .2 Protein (test code = Protein) 30 pH (test code = pH) 6.0 Blood (test code = Blood) Negative Specific [place] (test code = Specific [place]) 1.030 Ketone (test code = Ketone) Small Bilirubin (test code = Bilirubin) Negative Glucose (test code = Glucose) 500 Appearance (test code = Appearance) Clear Color (test code = Color) Yellow [facility]idianPOCT GLUCOSE (AUTOMATED)2023-02-07 03:31:18* Test Item Value Reference Range Interpretation Comme nts POCT GLU (test code = 4553218784) 119 mg/dL 70-110 H Lab Interpretation (test cod e = 29600-5) [facility] - Urine 2023-01-27 09:29:27* Test Item Value Reference Range Interpretation Comme nts Leukocytes (test code = Leukocytes) Trace Nitrite (test code = Nitrite) negative Urobilinogen (test code = Urobilinogen) .2 Protein (test code = Protein) Negative pH (test code = pH) 6.5 Blood (test code = Blood) Negative Specific [place] (test code = Specific [place]) 1.015 Ketone (test code = Ketone) Large Bilirubin (test code = Bilirubin) Negative Glucose (test code = Glucose) Negative Appearance (test code = Appearance) Clear Color (test code = Color) Yellow [facility]Gl[facility] [Mass/volume] in Capillary [id number] 09:22:46* Test Item Value Reference Range Interpretation Comme nts HGB (test code = HGB) 96 [facility]luc[facility] [id number] 05:07:00* Test Item Value Reference Range Interpretation Comme nts blood glucose monitoring (te st code = blood glucose monitoring) 113 mg/dL 70.0-110 H [id number] 04:55:00* Test Item Value Reference Range Interpretation Comme nts color, urine (test code = color, urine) yellow appearance, urine (test code = appearance, urine) clear clear urine glucose (test code = urine glucose) 4+ (1000 mg/dL) negative A bilirubin, urine (test code = bilirubin, urine) negative negative ketone, urine (test code = ketone, urine) 1+(small) negative A specific gravity,urine (test code = specific gravity,urine) 1.037 1.003-1.030 H blood urine (test code = blood urine) negative negative pH,urine (test code = pH,urine) 6.000 5-9 protein urine (UA) (test cod e = protein urine (UA)) 1+ (30 mg/dL) negative A urobilinogen, urine (test code = urobilinogen, urine) normal 0.2-1.0 nitrate, urine (test code = nitrate, urine) negative negative urine leukocyte esterase (test code = urine leukocyte esterase) negative negative RBC, urine (test code = RBC, urine) <1 0-5 WBC, urine (test code = WBC, urine) 1-5 0-5 epithelial cell (test code = epithelial cell) 6-10 0-5 bacteria, urine (test code = bacteria, urine) trace none detect casts,urine (test code = casts,urine) 2-5 none detect urine culture added? (test code = urine culture added?) no [facility]idianRPR2023-07-21 13:20:00* Test Item Value Reference Range Interpretation Comme nts RPR (test code = RPR) nonreactive nonreactive [facility]HIV [facility] ([facility]-house)2022-12-30 13:25:00* Test Item Value Reference Range Interpretation Comme nts HIV P24 Ag (test code = HIV P24 Ag) non-reactive nonreactive HIV-1/2 Ab (test code = HIV- 1/2 Ab) non-reactive nonreactive [facility] panel drug [id number] 12:09:00* Test Item Value Reference Range Interpretation Comme nts amphetamines screen urine (t est code = amphetamines screen urine) negative negative barbiturates, urine quant. ( test code = barbiturates, urine quant.) negative negative benzodiazepines screen urine (test code = benzodiazepines screen urine) negative negative cannabinoids (test code = cannabinoids) negative negative cocaine (test code = cocaine) negative negative opiates (test code = opiates) negative negative hydrocodone (test code = hydrocodone) negative negative fentanyl (test code = fentanyl) negative negative phencyclidine (test code = phencyclidine) negative negative methadone (test code = methadone) negative negative propoxyphene (test code = propoxyphene) negative negative oxycodone (test code = oxycodone) negative negative drug screen note (test code = drug screen note) . [facility] [id number] 11:58:00* Test Item Value Reference Range Interpretation Comme nts Hemoglobin A1c/Hemoglobin.to dago in Blood (test code = 4548-4) 5.8 % 4.0-6.0 [facility] W Auto Differential panel - [id number] 11:42:00 * Test Item Value Reference Range Interpretation Comme nts white blood count (test code = white blood count) 10.4 K/uL 4.0-11.5 red blood count (test code = red blood count) 3.98 M/uL 3.80-5.20 hemoglobin (test code = hemoglobin) 11.3 g/dL 10.5-15.7 hematocrit (test code = hematocrit) 35.7 % 34.0-50.0 mean corpuscular volume (kate t code = mean corpuscular volume) 89.7 fL 86.0-100.0 mean corpuscular hemoglobin (test code = mean corpuscular hemoglobin) 28.4 pg 26.2-33.4 mean corpuscular HGB conc (t est code = mean corpuscular HGB conc) 31.7 g/dL 30.0-34.0 red cell distribution width (test code = red cell distribution width) 14.7 % 12.0-15.5 platelet count (test code = platelet count) 252 K/uL 165-450 mean platelet volume (test c ode = mean platelet volume) 10.4 fL 9.4-12.6 neutrophils % (test code = neutrophils %) 66.4 % 44.4-80.1 Ig% (test code = Ig%) 1.0 % 0.0-0.4 H lymphocyte% (test code = lymphocyte%) 25.0 % 10.0-50.0 mono % (test code = mono %) 6.0 % 3.6-12.0 eos % (test code = eos %) 1.2 % 0.0-5.4 basophil % (test code = baso chris %) 0.4 % 0.1-1.2 absolute neutrophil count (t est code = absolute neutrophil count) 6.93 K/uL 1.56-6.13 H Ig# (test code = Ig#) 0.10 K/uL 0.00-0.03 H lymph # (test code = lymph #) 2.60 K/uL 1.18-3.74 mono # (test code = mono #) 0.63 K/uL 0.24-0.86 eos # (test code = eos #) 0.12 K/uL 0.04-0.36 basophil # (test code = baso chris #) 0.04 K/uL 0.01-0.08 NRBC% (test code = NRBC%) 0 /100 WBC 0-0.2 NRBC# (test code = NRBC#) 0 K/uL [facility] antiglobulin test.unspecified reagent [Presence] in Serum or [id number] 09:50:00* Test Item Value Reference Range Interpretation Comme nts ind pauline (test code = ind pauline) negative [facility]idian[facility]inalysis macro (dipstick) panel - [id number] 08:52:07* Test Item Value Reference Range Interpretation Comme nts Leukocytes (test code = Leukocytes) Negative Nitrite (test code = Nitrite) negative Urobilinogen (test code = Urobilinogen) .2 Protein (test code = Protein) Negative pH (test code = pH) 6.0 Blood (test code = Blood) Negative Specific [place] (test code = Specific [place]) 1.030 Ketone (test code = Ketone) Trace Bilirubin (test code = Bilirubin) Negative Glucose (test code = Glucose) 1000 Appearance (test code = Appearance) Clear Color (test code = Color) Yellow [facility] [Mass/volume] in Capillary [id number] 08:52:00* Test Item Value Reference Range Interpretation Comme nts GLU (test code = GLU) 134 [facility]idianGlucose [Mass/volume] in Capillary [id number] 10:04:00* Test Item Value Reference Range Interpretation Comme nts GLU (test code = GLU) 139 [facility]idian[facility]inalysis macro (dipstick) panel - [id number] 10:02:00* Test Item Value Reference Range Interpretation Comme nts Leukocytes (test code = Leukocytes) Negative Nitrite (test code = Nitrite) negative Urobilinogen (test code = Urobilinogen) .2 Protein (test code = Protein) Negative pH (test code = pH) 6.5 Blood (test code = Blood) Negative Specific [place] (test code = Specific [place]) 1.030 Ketone (test code = Ketone) Small Bilirubin (test code = Bilirubin) Negative Glucose (test code = Glucose) 250 Appearance (test code = Appearance) Clear Color (test code = Color) Yellow [facility]idianMicroscopic observation [Identifier] in Specimen by Wet [id number] 23:50:00Wet [facility]idian[facility]inalysis 2022-11-22 22:22:00* Test Item Value Reference Range Interpretation Comme nts color, urine (test code = color, urine) yellow appearance, urine (test code = appearance, urine) clear clear urine glucose (test code = urine glucose) trace (50 mg/dL) negative bilirubin, urine (test code = bilirubin, urine) negative negative ketone, urine (test code = ketone, urine) 2+(moderate) negative A specific gravity,urine (test code = specific gravity,urine) 1.030 1.003-1.030 blood urine (test code = blood urine) negative negative pH,urine (test code = pH,urine) 6.000 5-9 protein urine (UA) (test code = protein urine (UA)) 1+ (30 mg/dL) negative A urobilinogen, urine (test code = urobilinogen, urine) normal 0.2-1.0 nitrate, urine (test code = nitrate, urine) negative negative urine leukocyte esterase (test code = urine leukocyte esterase) negative negative RBC, urine (test code = RBC, urine) 1-5 0-5 WBC, urine (test code = WBC, urine) 1-5 0-5 epithelial cell (test code = epithelial cell) 1-5 0-5 bacteria, urine (test code = bacteria, urine) trace none detect casts,urine (test code = casts,urine) 6-10 none detect A urine culture added? (test code = urine culture added?) no [facility] GroupHemoglobin A1c [Mass/volume] in [id number] 12:36:00 * Test Item Value Reference Range Interpretation Comme nts Hemoglobin A1c/Hemoglobin.to dago in Blood (test code = 4548-4) 6.1 % 4.0-6.0 H [facility] GroupGlucose [Mass/volume] in Serum or Plasma --1 hour post dose [id number] 09:22:00* Test Item Value Reference Range Interpretation Comme nts Results (test code = Results) 179 [facility]idian[facility]inalysis macro (dipstick) panel - [id number] 08:50:00* Test Item Value Reference Range Interpretation Comme nts Leukocytes (test code = Leukocytes) Negative Nitrite (test code = Nitrite) negative Urobilinogen (test code = Urobilinogen) .2 Protein (test code = Protein) 30 pH (test code = pH) 5.5 Blood (test code = Blood) Negative Specific [place] (test code = Specific [place]) 1.030 Ketone (test code = Ketone) Moderate Bilirubin (test code = Bilirubin) Negative Glucose (test code = Glucose) Negative Appearance (test code = Appearance) Clear Color (test code = Color) Yellow [facility]idianUrinalysis macro (dipstick) panel - [id number] 10:06:00* Test Item Value Reference Range Interpretation Comme nts Leukocytes (test code = Leukocytes) Negative Nitrite (test code = Nitrite) negative Urobilinogen (test code = Urobilinogen) .2 Protein (test code = Protein) Negative pH (test code = pH) 6.0 Blood (test code = Blood) Negative Specific [place] (test code = Specific [place]) 1.030 Ketone (test code = Ketone) Small Bilirubin (test code = Bilirubin) Negative Glucose (test code = Glucose) 1000 Appearance (test code = Appearance) Clear Color (test code = Color) Yellow [facility]idianUrinalysis macro (dipstick) panel - [id number] 09:00:26* Test Item Value Reference Range Interpretation Comme nts Leukocytes (test code = Leukocytes) Negative Nitrite (test code = Nitrite) negative Urobilinogen (test code = Urobilinogen) .2 Protein (test code = Protein) Negative pH (test code = pH) 5.5 Blood (test code = Blood) Negative Specific [place] (test code = Specific [place]) 1.030 Ketone (test code = Ketone) Negative Bilirubin (test code = Bilirubin) Negative Glucose (test code = Glucose) 100 Appearance (test code = Appearance) Clear Color (test code = Color) Yellow [facility]idianChromosome 13+18+21+X+Y aneuploidy in Blood by Molecular genetics method [id number] 00:00:00* Test Item Value Reference Range Interpretation Comme nts report summary (test code = report summary) low risk report note (test code = report note) see notes trisomy 13 age-based risk text (test code = trisomy 13 age-based risk text) 1/858 (0.12%) trisomy 13 risk score text (test code = trisomy 13 risk score text) <1/10,000 (<0.01%) trisomy 13 result text (test code = trisomy 13 result text) low risk trisomy 18 age-based risk text (test code = trisomy 18 age-based risk text) 1/272 (0.37%) trisomy 18 risk score text (test code = trisomy 18 risk score text) <1/10,000 (<0.01%) trisomy 18 result text (test code = trisomy 18 result text) low risk trisomy 21 age-based risk text (test code = trisomy 21 age-based risk text) 1/117 (0.85%) trisomy 21 risk score text (test code = trisomy 21 risk score text) <1/10,000 (<0.01%) trisomy 21 result text (test code = trisomy 21 result text) low risk monosomy X age-based risk text (test code = monosomy X age-based risk text) 1/255 (0.39%) monosomy X risk score text (test code = monosomy X risk score text) <1/10,000 (<0.01%) monosomy X result text (test code = monosomy X result text) low risk triploidy result text (test code = triploidy result text) low risk gender of fetus (test code = gender of fetus) male fraction (test code = fraction) 3.1% footnotes (test code = footnotes) see notes [facility] GroupGenetic screen in Specimen by Molecular genetics method [id number] 00:00:00* Test Item Value Reference Range Interpretation Comme nts report summary (test code = report summary) negative alpha-thalassemia (test code = alpha-thalassemia) negative beta-hemoglobinopathies (kate t code = beta-hemoglobinopathies) negative geno disease (test code = geno disease) negative cystic fibrosis (test code = cystic fibrosis) negative duchenne/hogue muscular dys trophy (test code = duchenne/hogue muscular dystrophy) negative familial dysautonomia (test code = familial dysautonomia) negative fragile X syndrome (test cod e = fragile X syndrome) negative galactosemia (test code = galactosemia) negative gaucher disease (test code = gaucher disease) negative medium chain acyl-coa dehydr ogenase deficiency (test code = medium chain acyl-coa dehydrogenase deficiency) negative polycystic kidney disease, autosomal recessive (test code = polycystic kidney disease, autosomal recessive) negative enfym-imotq-xlnak syndrome ( test code = dywmn-igaqs-wjfpb syndrome) negative spinal muscular atrophy (kate t code = spinal muscular atrophy) negative pietro-sachs disease (test code = pietro-sachs disease) negative panel notes (test code = rowe el notes) see notes report note (test code = rep ort note) see notes footnotes (test code = footnotes) see notes [facility] GroupMicroscopic observation [Identifier] in Vaginal fluid by Wet [id number] 09:24:31* Test Item Value Reference Range Interpretation Comme nts Clue Cells (test code = Clue Cells) negative WBCs (test code = WBCs) negative Trichomonads (test code = Trichomonads) negative Epithelial cells (test code = Epithelial cells) normal RBCs (test code = RBCs) negative [facility]idianUrinalysis macro (dipstick) panel - [id number] 08:42:44* Test Item Value Reference Range Interpretation Comme nts Leukocytes (test code = Leukocytes) Negative Nitrite (test code = Nitrite) negative Urobilinogen (test code = Urobilinogen) .2 Protein (test code = Protein) Negative pH (test code = pH) 6.0 Blood (test code = Blood) Negative Specific [place] (test code = Specific [place]) 1.030 Ketone (test code = Ketone) Negative Bilirubin (test code = Bilirubin) Negative Glucose (test code = Glucose) Negative Appearance (test code = Appearance) Clear Color (test code = Color) Yellow [facility]idianculture,urine pres id [id number] 08:45:00* Test Item Value Reference Range Interpretation Comme nts culture,urine (test code = culture,urine) scant skin louis present. pathogen not present at 2 days. [facility]idianReagin Ab [Presence] in Serum by [id number] 13:57:00* Test Item Value Reference Range Interpretation Comme nts RPR (test code = RPR) nonreactive nonreactive [facility]idianBacteria identified in Urine by [id number] 08:42:00* Test Item Value Reference Range Interpretation Comme nts culture,urine (test code = culture,urine) scant skin louis present. pathogen not present at 1 day. [facility]idianpap, LB + reflex to HR HPV if [id number] 00:00:00* Test Item Value Reference Range Interpretation Comme nts TP reflex HPV ASCUS (test co de = TP reflex HPV ASCUS) abnormal A HPV (test code = HPV) normal [facility]idianchl/[id number] 19:34:00* Test Item Value Reference Range Interpretation Comme nts CT (test code = CT) CT not detected NG (test code = NG) NG not detected [facility]idianRubella virus Ab [Titer] in [id number] 18:53:00* Test Item Value Reference Range Interpretation Comme nts rubella IgG (test code = rubella IgG) > 500 [facility]idianHIV 1+2 Ab [Presence] in [id number] 18:20:00* Test Item Value Reference Range Interpretation Comme nts HIV P24 Ag (test code = HIV P24 Ag) non-reactive nonreactive HIV-1/2 Ab (test code = HIV- 1/2 Ab) non-reactive nonreactive [facility]idianHemoglobin A1c [Mass/volume] in [id number] 18:04:00 * Test Item Value Reference Range Interpretation Comme nts Hemoglobin A1c/Hemoglobin.to dago in Blood (test code = 4548-4) 6.8 % 4.0-6.0 H [facility]idianMicroscopic observation [Identifier] in Vaginal fluid by Wet [id number] 17:59:10* Test Item Value Reference Range Interpretation Comme nts Clue Cells (test code = Clue Cells) negative WBCs (test code = WBCs) negative Trichomonads (test code = Trichomonads) negative Epithelial cells (test code = Epithelial cells) normal RBCs (test code = RBCs) negative [facility] W Auto Differential panel - [id number] 17:53:00 * Test Item Value Reference Range Interpretation Comme nts white blood count (test code = white blood count) 8.4 K/uL 4.0-11.5 red blood count (test code = red blood count) 4.57 M/uL 3.80-5.20 hemoglobin (test code = hemoglobin) 13.2 g/dL 10.5-15.7 hematocrit (test code = hematocrit) 41.1 % 34.0-50.0 mean corpuscular volume (kate t code = mean corpuscular volume) 89.9 fL 86.0-100.0 mean corpuscular hemoglobin (test code = mean corpuscular hemoglobin) 28.9 pg 26.2-33.4 mean corpuscular HGB conc (t est code = mean corpuscular HGB conc) 32.1 g/dL 30.0-34.0 red cell distribution width (test code = red cell distribution width) 15.5 % 12.0-15.5 platelet count (test code = platelet count) 277 K/uL 165-450 mean platelet volume (test c ode = mean platelet volume) 10.0 fL 9.4-12.6 neutrophils % (test code = neutrophils %) 70.6 % 44.4-80.1 Ig% (test code = Ig%) 0.7 % 0.0-0.4 H lymphocyte% (test code = lymphocyte%) 21.8 % 10.0-50.0 mono % (test code = mono %) 5.8 % 3.6-12.0 eos % (test code = eos %) 0.7 % 0.0-5.4 basophil % (test code = baso chris %) 0.4 % 0.1-1.2 absolute neutrophil count (t est code = absolute neutrophil count) 5.94 K/uL 1.56-6.13 Ig# (test code = Ig#) 0.06 K/uL 0.00-0.03 H lymph # (test code = lymph #) 1.83 K/uL 1.18-3.74 mono # (test code = mono #) 0.49 K/uL 0.24-0.86 eos # (test code = eos #) 0.06 K/uL 0.04-0.36 basophil # (test code = baso chris #) 0.03 K/uL 0.01-0.08 NRBC% (test code = NRBC%) 0 /100 WBC 0-0.2 NRBC# (test code = NRBC#) 0 K/uL [facility] GroupABO and Rh group [Type] in [id number] 16:03:00* Test Item Value Reference Range Interpretation Comme nts blood type (test code = blood type) an ind pauline (test code = ind pauline) negative [facility] GroupUrinalysis macro (dipstick) panel - [id number] 15:21:00* Test Item Value Reference Range Interpretation Comme nts Leukocytes (test code = Leukocytes) Negative Nitrite (test code = Nitrite) negative Urobilinogen (test code = Urobilinogen) .2 Protein (test code = Protein) Negative pH (test code = pH) 5.5 Blood (test code = Blood) Negative Specific [place] (test code = Specific [place]) 1.020 Ketone (test code = Ketone) Small Bilirubin (test code = Bilirubin) Negative Glucose (test code = Glucose) 500 Appearance (test code = Appearance) Clear Color (test code = Color) Yellow [facility] HealthGlucose [Mass/volume] in Capillary [id number] 14:35:00* Test Item Value Reference Range Interpretation Comme nts GLU (test code = GLU) 211 [facility]idianpregnancy test, [id number] 14:35:00* Test Item Value Reference Range Interpretation Comme nts Test (test code = Test) positive [facility]
--- NOTE | 2024-05-31 00:54 | EDPHYS ---
Physician Documentation [facility] Name: Ivet Valles Age: 38 yrs Sex: Female : 1985 Arrival Date: 05/30/2024 Time: 23:11 Bed Treatment Private MD: ED Physician Chet Sullivan HPI: 05/30 23:12 This 38 yrs old Female presents to ER via Unassigned with complaints of acute sp4 allergic reaction . 05/31 21:14 Patient presents with acute dyspnea and acute allergic reaction acute throat discomfort sp4 secondary to allergic reaction to cinnamon. Acute facial plethora itching and feeling unwell. 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 - Infectious Disease History:: Denies. - Family history:: not pertinent. - Social history:: Smoking status: unknown. ROS: 21:14 Constitutional: Negative for fever, chills, and weight loss, positive for throat sp4 discomfort positive shortness of breath positive itching , positive acute allergic reaction 21:14 All other systems are negative, Exam: 21:14 Constitutional: This is a well developed, well nourished patient who is awake, alert, sp4 moderate distress secondary to shortness of breath, acute throat discomfort, Head/Face: Normocephalic, atraumatic. Positive for facial plethora Eyes: Pupils equal round and reactive to light, extra-ocular motions intact. Lids and lashes normal. Conjunctiva and sclera are not injected. Cornea within normal limits. Periorbital areas with no swelling, redness, or edema. ENT: Nares patent. No nasal discharge, no septal abnormalities noted. Tympanic membranes are normal and external auditory canals are clear. Oropharynx with no redness, swelling, or masses, exudates, or evidence of obstruction, uvula midline. Mucous membranes moist. Neck: Trachea midline, no thyromegaly or masses palpated, and no cervical lymphadenopathy. Supple, full range of motion without nuchal rigidity, or vertebral point tenderness. Chest/axilla: Normal chest wall appearance and motion. Nontender with no deformity. No lesions are appreciated. Cardiovascular: Regular rate and rhythm with a normal S1 and S2. No gallops, murmurs, or rubs. Normal PMI, no JVD. No pulse deficits. Respiratory: Lungs have equal breath sounds bilaterally, clear to auscultation and percussion. No rales, rhonchi or wheezes noted. No increased work of breathing, no retractions or nasal flaring. Abdomen/GI: Soft, with normal bowel sounds. No distension or tympany. No guarding or rebound. No evidence of tenderness throughout. Back: No spinal tenderness. No costovertebral tenderness. Skin: Warm, dry with normal turgor. Normal color with no rashes, no lesions, and no evidence of cellulitis. MS/ Extremity: Pulses equal, no cyanosis. Neurovascular intact. Full, normal range of motion. Neuro: Awake and alert, GCS 15, oriented to person, place, time, and situation. Cranial nerves II-XII grossly intact. Motor strength 5/5 in all extremities. Sensory grossly intact. Psych: Awake, alert, with orientation to person, place and time. Behavior, mood, and affect are within normal limits Vital Signs: 05/30 23:35 BP 126 / 81; Pulse 99; Resp 22; Pulse Ox 98% ; kmf 05/31 01:00 Pulse 88; Resp 17; Pulse Ox 96% ; kmf 01:13 BP 134 / 84; Pulse 99; Resp 17; Temp 97.8(TE); Pulse Ox 100% on R/A; Pain 0/10; kl 01:13 Pain Scale: Adult kl Latty Coma Score: 21:14 Eye Response: spontaneous(4). Motor Response: obeys commands(6). Verbal Response: sp4 oriented(5). Total: 15. MDM: 05/30 23:14 Medical Screening Exam initiated sp4 05/31 21:14 Differential diagnosis: acute pericarditis, costochondritis, esophagitis, gastritis, sp4 Acute allergic reaction. Data reviewed: vital signs, nurses notes, old medical records. ED course: Patient has markedly improved after medications. Patient has no signs of airway compromise. Patient stable for discharge home with p.o. prednisone for 5 days also advised to take Benadryl 50 mg 3 times a day as needed for itching and swelling. Return to ER precautions discussed with patient in detail.. 05/30 23:14 Order name: Saline Lock; Complete Time: 23:27 sp4 Administered Medications: 05/30 23:26 Drug: MethylPrednisoLONE IVP 125 mg IVP once Route: IVP; Site: left antecubital; jb4 05/31 00:29 Follow up: Response: No adverse reaction; Marked relief of symptoms kl 05/30 23:27 Drug: Albuterol Inhalation 2.5 mg Inhalation once Route: Inhalation; jb4 05/31 00:29 Follow up: Response: No adverse reaction; Marked relief of symptoms kl 05/30 23:27 Drug: NS 0.9% IV 1000 ml IV at 1 bolus Per protocol; to be given as a bolus over 60 jb4 minutes Route: IV; Rate: 1 bolus; Site: left antecubital; 23:27 Drug: Famotidine IVP 40 mg IVP once; dilute with 10 mL 0.9% NaCl; give over 2 minutes jb4 {Note: put in 1L bolus per providers instructions..} Route: IVP; Site: left antecubital; 05/31 00:29 Follow up: Response: No adverse reaction; Marked relief of symptoms kl 05/30 23:27 Drug: diphenhydrAMINE IVP 50 mg IVP once Route: IVP; Site: left antecubital; jb4 05/31 00:29 Follow up: Response: No adverse reaction; Marked relief of symptoms kl Disposition: 21:16 Chart complete. sp4 Disposition Summary: 05/31/24 00:53 Discharge Ordered Notes: Location: Home sp4 Problem: new sp4 Symptoms: have improved sp4 Condition: Stable sp4 Diagnosis - Acute allergic reaction, acute dyspnea sp4 Followup: sp4 - With: Private Physician - When: 2 - 3 days - Reason: Recheck today's complaints Discharge Instructions: - Discharge Summary Sheet sp4 - Allergies, Adult, [id number] sp4 Forms: - Patient Portal Instructions sp4 Prescriptions: - Prednisone 20 mg Oral Tablet - take 2 tablets ORAL route once daily for 5 days; 10 tablet; Refills: 0, Product sp4 Selection Permitted Signatures: Delmy Palacios RN RN kl Ab Ayala RN RN jb4 Chet Sullivan MD MD sp4
--- NOTE | 2024-05-31 01:18 | ER ---
Nurse's Notes [facility] Name: Ivet Valles Age: 38 yrs Sex: Female : 1985 Arrival Date: 05/30/2024 Time: 23:11 Bed Treatment Private MD: Diagnosis: Acute allergic reaction, acute dyspnea Presentation: 05/30 23:30 Chief complaint: Patient states: I somehow came in contact with cinnamon. My throat jb4 feels tight and I am having a hard time breathing. 23:30 Coronavirus screen: At this time, the client does not indicate any symptoms associated jb4 with coronavirus-19. Ebola Screen: No symptoms or risks identified at this time. Initial Sepsis Screen: Does the patient meet any 2 criteria? No. Patient's initial sepsis screen is negative. Does the patient have a suspected source of infection? No. Patient's initial sepsis screen is negative. Risk Assessment: Do you want to hurt yourself or someone else? Patient reports no desire to harm self or others. Onset of symptoms was May 31, 2024. Transition of care: patient was not received from another setting of care. 23:30 Method Of Arrival: Ambulatory jb4 23:30 Acuity: REJI 2 jb4 Triage Assessment: 05/31 01:17 General: Appears in no apparent distress. Behavior is calm, cooperative. 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 - Infectious Disease History:: Denies. - Family history:: not pertinent. - Social history:: Smoking status: unknown. Screenin:15 [facility] ED Fall Risk Assessment (Adult) History of falling in the last 3 months, kl including since admission No falls in past 3 months (0 pts) Confusion or Disorientation No (0 pts) Intoxicated or Sedated No (0 pts) Impaired Gait No (0 pts) Mobility Assist Device Used No (0 pt) Altered Elimination No (0 pt) Score/Fall Risk Level 0 - 2 = Low Risk Oriented to surroundings, Maintained a safe environment. Abuse screen: Denies threats or abuse. Nutritional screening: No deficits noted. Tuberculosis screening: No symptoms or risk factors identified. Assessment: 01:14 Reassessment: Patient appears in no apparent distress at this time. Patient denies pain kl at this time. Patient states feeling better. Patient states symptoms have improved. Pain: Denies pain. Respiratory: No deficits noted. Airway is patent Trachea midline Respiratory effort is even, unlabored. Derm: No deficits noted. Vital Signs: 05/30 23:35 BP 126 / 81; Pulse 99; Resp 22; Pulse Ox 98% ; kmf 05/31 01:00 Pulse 88; Resp 17; Pulse Ox 96% ; kmf 01:13 BP 134 / 84; Pulse 99; Resp 17; Temp 97.8(TE); Pulse Ox 100% on R/A; Pain 0/10; kl 01:13 Pain Scale: Adult kl Vanessa Coma Score: 21:14 Eye Response: spontaneous(4). Motor Response: obeys commands(6). Verbal Response: sp4 oriented(5). Total: 15. ED Course: 05/30 23:12 Patient arrived in ED. ty 23:12 Chet Sullivan MD is Attending Physician. sp4 05/31 01:08 Triage completed. jb4 01:15 Patient has correct armband on for positive identification. Allergy band placed. Provided Education on:. 01:16 No provider procedures requiring assistance completed. IV discontinued, intact, kl bleeding controlled, No redness/swelling at site. Pressure dressing applied. Administered Medications: 05/30 23:26 Drug: MethylPrednisoLONE IVP 125 mg IVP once Route: IVP; Site: left antecubital; jb4 05/31 00:29 Follow up: Response: No adverse reaction; Marked relief of symptoms 05/30 Drug: Albuterol Inhalation 2.5 mg Inhalation once Route: Inhalation; jb4 05/31 00:29 Follow up: Response: No adverse reaction; Marked relief of symptoms 05/30 Drug: NS 0.9% IV 1000 ml IV at 1 bolus Per protocol; to be given as a bolus over 60 jb4 minutes Route: IV; Rate: 1 bolus; Site: left antecubital; 23:27 Drug: Famotidine IVP 40 mg IVP once; dilute with 10 mL 0.9% NaCl; give over 2 minutes jb4 {Note: put in 1L bolus per providers instructions..} Route: IVP; Site: left antecubital; 05/31 00:29 Follow up: Response: No adverse reaction; Marked relief of symptoms 05/30 23:27 Drug: diphenhydrAMINE IVP 50 mg IVP once Route: IVP; Site: left antecubital; jb4 05/31 00:29 Follow up: Response: No adverse reaction; Marked relief of symptoms Medication: 01:17 VIS not applicable for this client. Outcome: 00:53 Discharge ordered by . viktoria 01:16 Discharged to home ambulatory, 01:16 Condition: improved 01:16 Discharge instructions given to patient, Instructed on discharge instructions, follow up and referral plans. medication usage, Demonstrated understanding of instructions, follow-up care, medications, Prescriptions given X 1, 01:17 Patient left the ED. Signatures: Delmy Palacios RN RN Ab Wei RN RN jb4 Potepalov, Sergey, MD MD sp4 Forrester, Kelsey Maroul kmf Yandell, Tylor ty
[2024-05-31 02:05] VITALS: BP 134/84; TEMP 97.8; O2SAT 100
== END 2024-05-31 01:17 | disposition home or self-care (01) ==
LOC: ER 23:11
DX: T78.1XXA Other adverse food reactions, not elsewhere classified, initial encounter (principal); R06.00 Dyspnea, unspecified; I10 Essential (primary) hypertension; D75.9 Disease of blood and blood-forming organs, unspecified; Z91.02 Food additives allergy status; Z88.1 Allergy status to other antibiotic agents; Z91.040 Latex allergy status; Z79.899 Other long term (current) drug therapy
CPT/HCPCS: 96375; 96374; 99284; J7613; J7030